=== PATIENT | female | born 1965 ===

== ENCOUNTER 2016-10-30 09:49 | Observation (INO) | payer MEDICAID ==
[2016-10-30 09:52] VITALS: BMI 33.3
[2016-10-30] MEDS ORDERED: Sodium Chloride 0.9% 1,000 ML IV STA (10:21)
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
[2016-10-30 10:45] LABS: ADD MANUAL DIFF? NO
[2016-10-30 10:51] LABS: BASO # 0.02 K/mm3 (0.0-2.0); BASO % 0.2 % (0.0-3.0); EOS % 0.1 % (1.5-5.0); GRAN # 6.34 (1.4-6.5); GRAN % 75.3 % (50.0-68.0); HEMATOCRIT 38.6 % (36.0-48.0); LYMPH # 1.7 (1.2-3.4); LYMPH % 20.1 % (22.0-35.0); MEAN CELL VOLUME 83.7 fL (80.0-105.0); MEAN CORPUSCULAR HGB CONC 33.4 g/dl (31.0-37.0); MEAN PLATELET VOLUME 11.1 fl (7.0-11.0); MONO # 0.4 (0.1-0.6); MONO % 4.3 % (1.0-6.0); PLATELET COUNT 148 10^3/uL (120.0-450.0); RED CELL DISTRIBUTION WIDTH 13.5 % (11.5-14.5); WHITE BLOOD COUNT 8.4 10^3/ul (4.5-11.0)
--- NOTE | 2016-10-30 10:52 | CT ---
PROCEDURE: CT HEAD WITHOUT CONTRAST. HISTORY: BEAULIEU COMPARISON: 08/28/2015 TECHNIQUE: Axial computed tomography images were obtained through the head/brain without intravenous contrast. Radiation dose: Total exam DLP = 677 mGy-cm. This CT exam was performed using one or more of the following dose reduction techniques: Automated exposure control, adjustment of the mA and/or kV according to patient size, and/or use of iterative reconstruction technique. FINDINGS: HEMORRHAGE: No intracranial hemorrhage. BRAIN: No mass effect or edema. No atrophy or chronic microvascular ischemic changes. VENTRICLES: Unremarkable. No hydrocephalus. CALVARIUM: Unremarkable. PARANASAL SINUSES: Unremarkable as visualized. No significant inflammatory changes. MASTOID AIR CELLS: Unremarkable as visualized. No inflammatory changes. OTHER FINDINGS: None. IMPRESSION: Normal CT of the Head.
[2016-10-30 11:00] LABS: ALB/GLOB RATIO 1.4 (1.1-1.8); ALKALINE PHOSPHATASE 114 U/L (38-133); ALT/SGPT 23 U/L (7-56); AST/SGOT 17 U/L (15-39); BILIRUBIN,TOTAL 0.7 mg/dL (0.2-1.3); BLOOD UREA NITROGEN 28 mg/dL (7-21); CALCIUM 9.8 mg/dL (8.4-10.5); CARBON DIOXIDE 28 mmol/L (21-33); CHLORIDE 98 mmol/L (98-107); GFR AFRICAN-AMERICAN > 60; POTASSIUM 4.5 mmol/L (3.6-5.0); SODIUM 136 mmol/L (132-148); TOTAL PROTEIN 7.3 g/dL (5.8-8.3)
[2016-10-30 11:03] LABS: INR 0.95 (0.93-1.08); PARTIAL THROMBOPLASTIN TIME 23.8 Seconds (23.7-30.8)
[2016-10-30 11:10] LABS: GLUCOSE,RANDOM 319 mg/dL (70-110)
[2016-10-30] MEDS ORDERED: Morphine 4 mg/ml ISec IVP STA (13:34)
[2016-10-30] MEDS ORDERED: Albuterol HFA 90 mcg/actuation (8 g) IH PRN (14:52)
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
[2016-10-30] MEDS ORDERED: Albuterol 0.083% Inhal Sol (2.5 mg/3 mL) UD IH PRN (15:10)
[2016-10-30] MEDS ORDERED: Insulin Detemir 100 units/ml Vial (Levemir) SC SCH (16:30)
[2016-10-30] MEDS ORDERED: Alum-Mag Hydrox-Simethicone Susp (30 mL) PO PRN (17:05)
--- NOTE | 2016-10-30 19:03 | US ---
PROCEDURE: Bilateral carotid artery duplex ultrasound HISTORY: Carotid stenosis syncope PHYSICIAN(S): Erwin Hogan MD. TECHNIQUE: Duplex sonography and color-flow Doppler were used to evaluate the carotid bifurcations and limited segments of the vertebral arteries bilaterally. FINDINGS: There is mild to moderate smooth heterogeneous plaque noted at the carotid bifurcations bilaterally. The peak systolic velocity in the proximal right internal carotid artery is 49 cm/sec. This corresponds to a 20 to 39% proximal right ICA stenosis. Normal systolic velocities are noted in the proximal right external carotid artery. There is bidirectional flow in the right vertebral artery. The peak systolic velocity in the proximal left internal carotid artery is 147 cm/sec. This corresponds to a 40-59 percent proximal left ICA stenosis. Normal systolic velocities are noted in the proximal left external carotid artery. There is antegrade flow in the left vertebral artery. IMPRESSION: 1. 40-59 percent proximal left ICA stenosis. 2. 20-39 percent proximal right ICA stenosis. 3. Grade flow in the left vertebral artery. Bidirectional flow in the right vertebral artery
--- NOTE | 2016-10-30 20:18 | CON ---
DATE: 10/30/2016 HISTORY OF PRESENT ILLNESS: This is a 51-year-old female with past medical history of diabe simba, hypertension, coronary artery disease, COPD, hypothyroidism who came to the hospital with a head ache on the back of the head on the right side and also complaining of some dizzy and headache. No n ausea, no vomiting. Headache is associated with some dizziness and lightheadedness, worse when she s tands up. Came to the hospital for further workup. CAT scan of the head was done, which was reporte d negative. PAST MEDICAL HISTORY: Hypertension, diabetes, coronary artery disease, anxiety, depression, COPD, hy pothyroidism. PAST SURGICAL HISTORY: Cardiac stents, tonsillectomy and ankle surgery. SOCIAL HISTORY: Quit smoking 20 years ago and drinks occasionally. ALLERGIES: SULFA. REVIEW OF SYSTEMS: A 10-point review of system was negative except headache. PHYSICAL EXAMINATION: HEENT: Normocephalic, atraumatic. VITAL SIGNS: Blood pressure 103/71. NECK: Supple. NEUROLOGIC: Alert, awake, oriented x 3. No aphasia. Cranial nerves II through XII were tested. Pu pils reactive. EOM intact. Visual [place] full. No facial asymmetry. Tongue midline. Motor examin ation: Moves all the extremities spontaneously. Deep tendon reflexes 1+. Both plantars are downgoi ng. Sensory appears intact. Cerebellar gait deferred. Impression of vertigo, rule out vertebrobasilar ischemia, headache. Will give Fioricet around the cl ock 1 q. 8 hours p.r.n. LABORATORY DATA: WBC 8.4, hemoglobin 12.9, hematocrit 38.5, platelets 148. Sodium 136, potassium 4. 5, chloride 98, CO2 of 28, glucose 319, BUN 28, creatinine 1.1. IMPRESSION: This is a 51-year-old with past medical history of diabetes, hypertension, coronary chloe ry disease, anxiety, hypothyroidism and came with right-sided headache and dizziness. CAT scan of th e head was done, which was reported negative. We will give Fioricet 1 p.o. q. 8 hours p.r.n. Workup is in progress. We will follow up. Van Ynes MD cc: [id number] TT: 10/30/2016 20:18:15 Confirmation # [id number] Dictation # [id number] jn
[2016-10-30] MEDS: Budesonide 0.5 mg/2 ml Inhal Susp UD IH SCH (20:24)
[2016-10-30] MEDS: Arformoterol 15 mcg/2 ml Inh Sol IH SCH (20:24)
[2016-10-30] MEDS ORDERED: Fluticasone-Salmeterol 250-50mcg Diskus IH SCH (22:00)
[2016-10-30] MEDS ORDERED: Pneumococcal 23-Valent Vaccine IM ONE (23:21)
[2016-10-31 07:22] LABS: ADD MANUAL DIFF? NO
[2016-10-31 07:27] LABS: BASO # 0.02 K/mm3 (0.0-2.0); BASO % 0.3 % (0.0-3.0); GRAN # 4.48 (1.4-6.5); GRAN % 65.1 % (50.0-68.0); HEMATOCRIT 36.6 % (36.0-48.0); LYMPH % 28.8 % (22.0-35.0); MEAN CELL VOLUME 83.8 fL (80.0-105.0); MEAN CORPUSCULAR HEMOGLOBIN 28.1 pg (25.0-35.0); MEAN CORPUSCULAR HGB CONC 33.6 g/dl (31.0-37.0); MEAN PLATELET VOLUME 10.5 fl (7.0-11.0); MONO # 0.4 (0.1-0.6); MONO % 5.8 % (1.0-6.0); PLATELET COUNT 134 10^3/uL (120.0-450.0); RED CELL DISTRIBUTION WIDTH 13.6 % (11.5-14.5); WHITE BLOOD COUNT 6.9 10^3/ul (4.5-11.0)
[2016-10-31] MEDS ORDERED: Apap-Butalbital-Caffeine 325-50-40mg Tab PO PRN (07:28)
[2016-10-31 07:44] VITALS: RESP 20
[2016-10-31 07:55] LABS: BLOOD UREA NITROGEN 27 mg/dL (7-21); CALCIUM 9.4 mg/dL (8.4-10.5); CARBON DIOXIDE 26 mmol/L (21-33); CHLORIDE 102 mmol/L (98-107); CHOLESTEROL 153 mg/dL (130-200); GFR AFRICAN-AMERICAN > 60; GLUCOSE,RANDOM 230 mg/dL (70-110); POTASSIUM 4.4 mmol/L (3.6-5.0); SODIUM 137 mmol/L (132-148)
[2016-10-31] MEDS: Levothyroxine 75 MCG TAB PO SCH (08:30)
[2016-10-31] MEDS: Arformoterol 15 mcg/2 ml Inh Sol IH SCH ×2 (08:44→20:23)
[2016-10-31] MEDS: Budesonide 0.5 mg/2 ml Inhal Susp UD IH SCH ×2 (08:45→20:23)
[2016-10-31] MEDS: Insulin Lispro (humaLOG) MIX 75/25(10 ml) SC SCH ×2 (08:52→16:38)
[2016-10-31] MEDS: Pantoprazole 40 mg EC Tab PO SCH (09:01)
--- NOTE | 2016-10-31 09:34 | CARD ---
APPROVED REPORT EKG Measurement Heart [id number] ME [id number] <Conclusion> Normal sinus rhythm RSR' or QR pattern in V1 suggests right ventricular conduction delay Leftward axis No change
[2016-10-31] MEDS: BUDESONIDE IH SCH (11:58)
--- NOTE | 2016-10-31 12:57 | PN ---
DATE: 10/31/2016 CHIEF COMPLAINT: Follow up for headache. SUBJECTIVE: The patient seen and examined at bedside, still has headache radiating up the right side of her occipital area. Fioricet has been given, but she does not ask for the Fioricet with the acut e onset of headache as told to. We will consider to add gabapentin 400 mg p.o. at bedtime daily to re duce the frequency and intensity of the headache. She is still lightheaded, no vertiginous symptoms. She had fluctuating hypoglycemic episodes when she came in and her A1c is 11.7 indicating poorly co ntrolled diabetes. No acute events overnight. PAST MEDICAL HISTORY: Diabetes, hypertension, coronary artery disease, anxiety, depression, COPD, hy pothyroidism. PAST SURGICAL HISTORY: Cardiac stent x 1-2 years ago, tonsillectomy, left ankle surgery. FAMILY HISTORY: Noncontributory. SOCIAL HISTORY: Previous tobacco use, quit 20 years ago. Occasional ETOH use. No illicit drug use abuse. ALLERGIES: ALLERGIC TO SULFA. REVIEW OF SYSTEMS: A 14-point review of systems is negative except as in the HPI. PHYSICAL EXAMINATION: VITAL SIGNS: Temperature 98.4, pulse rate 76, blood pressure 130/66, respiratory rate 20, oxygen 98% on room air. GENERAL: The patient is sitting up in bed in no acute distress. HEENT: Atraumatic, normocephalic. PERRLA. Extraocular muscles intact. NECK: Supple, no JVD, no adenopathy noted. LUNGS: Clear to auscultation. No adventitious sounds. HEART: S1, S2, normal rate and rhythm. No murmurs, rubs, or gallops. ABDOMEN: Soft, nontender, nondistended. Bowel sounds are present. EXTREMITIES: No clubbing, no cyanosis. Peripheral pulses 2+ felt bilaterally. NEUROLOGIC: The patient is alert, oriented to person, place, month and year. Speech is fluent, with out any errors. Cranial nerves II-XII are intact. Speech is fluent, without any errors. MOTOR: Normal tone, normal bulk of muscle. Moves all extremities equally. Toes are downgoing bilat erally. SENSORY: Decreased light touch custodial up the calves bilaterally, decreased vibration of the toes. DTRs 2+ throughout, 1 at the ankles. COORDINATION: [id number] intact. GAIT: Deferred for now. MUSCULOSKELETAL: Cervical muscle tightness. LABORATORIES: Sodium is 137, potassium 4.4, chloride 102, carbon dioxide 26, BUN of 27, creatinine 1 , random glucose 230. ASSESSMENT AND PLAN: This is a 51-year-old female with past medical history of diabetes, hypertensio n, coronary artery disease, anxiety, depression, chronic obstructive pulmonary disease, hypothyroidis m, was here for right-sided headache and dizziness. The dizziness is more of a headache syndrome with fluctuating hyperglycemic accelerations. Right side headache has a little bit of a neuralgic compon ent. At this time, we will add Fioricet 1-2 tabs p.o. q. 4 hours at the acute onset of headache miesha g with gabapentin 400 mg p.o. at bedtime to reduce the intensity and frequency of the headaches. Her carotid Doppler showed 40%-59% proximal ICA stenosis in the left and right ICA stenosis 20%-39%. Co ntinue medical management, aspirin 81 mg and a statin for dyslipidemia as well as Plavix for carotid disease as well. Continue with her anxiety and depression medications such as Paxil and Seroquel, as well as Synthroid for hypothyroidism. At this time, she is clinically stable. She can follow up as an outpatient. Thank you for this followup. Will sign off. Alejandro Quick MD cc: [phone] TT: 10/31/2016 12:56:48 Confirmation # [id number] Dictation # [id number] esperanza
--- NOTE | 2016-10-31 15:02 | CP.PCM.PN ---
<Dann Chase - Last Filed: 10/31/16 14:54> Subjective - Date & Time of Evaluation Date of Evaluation: 10/31/16 Time of Evaluation: 10:10 - Subjective Subjective: Medicine Progress note. Dr. Santos Pt seen and examined at bedside. No acute events overnight. Patient still c/o headache. States that she is dizzy and unsteady when she walks within room. Denies any F/C. No N/V. No Abd pain. No new complaints. Objective - Vital Signs/Intake and Output Vital Signs (last 24 hours): Temp Pulse Resp BP Pulse Ox 98.4 F 88 20 113/66 98 10/31/16 06:00 10/31/16 10:00 10/31/16 06:00 10/31/16 09:01 10/31/16 06:00 Intake and Output: 10/31/16 10/31/16 06:59 18:59 Intake Total 0 Balance 0 - Medications Medications: Current Medications Acetaminophen/Butalbital/Caffeine (Fioricet) 1 tab PO Q8H PRN PRN Reason: Headache Last Admin: 10/31/16 08:54 Dose: 1 tab Al Hydrox/Mg Hydrox/Simethicone (Maalox Plus 30 Ml) 30 ml PO BID PRN PRN Reason: Dyspepsia Albuterol Sulfate (Albuterol 0.083% Inhal Deena (2.5 Mg/3 Ml) Ud) 2.5 mg IH Q4 PRN PRN Reason: SOB Amlodipine Besylate (Norvasc) 10 mg PO DAILY [facility] Last Admin: 10/31/16 09:01 Dose: 10 mg Arformoterol Tartrate (Brovana) 15 mcg IH [id number] [facility] Last Admin: 10/31/16 08:44 Dose: 15 mcg Aspirin (Ecotrin) 81 mg PO DAILY [facility] Last Admin: 10/31/16 09:00 Dose: 81 mg Atorvastatin Calcium (Lipitor) 40 mg PO DAILY [facility] Last Admin: 10/31/16 09:01 Dose: 40 mg Budesonide (Pulmicort Respules) 0.5 mg IH [id number] [facility] Last Admin: 10/31/16 08:45 Dose: 0.5 mg Clopidogrel Bisulfate (Plavix) 75 mg PO DAILY [facility] Last Admin: 10/31/16 09:01 Dose: 75 mg Gabapentin (Neurontin) 400 mg PO [facility] PRN Reason: Protocol Insulin Detemir (Levemir) 12 unit SC BIDAC [facility] Last Admin: 10/31/16 08:52 Dose: 12 unit Insulin Lispro Protam/Lispro Human (Humalog Mix 75/25) 35 units SC BIDAC [facility] Last Admin: 10/31/16 08:52 Dose: 35 units Levothyroxine Sodium (Synthroid) 75 mcg PO ACB [facility] Last Admin: 10/31/16 08:30 Dose: 75 mcg Lisinopril (Zestril) 5 mg PO DAILY [facility] Last Admin: 10/31/16 09:01 Dose: 5 mg Meclizine HCl (Antivert) 12.5 mg PO BID [facility] Last Admin: 10/31/16 09:00 Dose: 12.5 mg Metoprolol Tartrate (Lopressor) 50 mg PO 0800,1800 [facility] Last Admin: 10/31/16 08:53 Dose: 50 mg Non-Formulary Medication (Budesonide [Pulmicort Flexhaler]) 1 puff IH DAILY [facility] Last Admin: 10/31/16 11:58 Dose: Not Given Ondansetron HCl (Zofran Inj) 4 mg IVP Q6 PRN PRN Reason: Nausea/Vomiting Pantoprazole Sodium (Protonix Ec Tab) 40 mg PO DAILY [facility] Last Admin: 10/31/16 09:01 Dose: 40 mg Paroxetine HCl (Paxil) 20 mg PO [facility] Last Admin: 10/30/16 21:32 Dose: 20 mg Quetiapine Fumarate (Seroquel) 50 mg PO [facility] PRN Reason: Protocol Last Admin: 10/30/16 21:32 Dose: 50 mg - Labs Labs: 10/31/16 07:20 10/31/16 07:20 PT 10.3 Seconds (9.9-11.8) 10/30/16 10:24 INR 0.95 (0.93-1.08) 10/30/16 10:24 APTT 23.8 Seconds (23.7-30.8) 10/30/16 10:24 - Constitutional Appears: Well, No Acute Distress - Head Exam Head Exam: ATRAUMATIC, NORMAL INSPECTION, NORMOCEPHALIC Additional comments: Tender to palpation right sided occiput - Eye Exam Eye Exam: EOMI, Normal appearance. absent: Scleral icterus - ENT Exam ENT Exam: Mucous Membranes Moist - Neck Exam Neck Exam: Full ROM - Cardiovascular Exam Cardiovascular Exam: RRR, +S1, +S2. absent: JVD - GI/Abdominal Exam GI & Abdominal Exam: Soft. absent: Distended, Guarding, Rigid, Tenderness - Extremities Exam Extremities Exam: Normal Inspection - Back Exam Back Exam: NORMAL INSPECTION - Neurological Exam Neurological Exam: Alert, Awake, Oriented x3 - Psychiatric Exam Psychiatric exam: Normal Affect, Normal Mood - Skin Skin Exam: Dry, Intact, Normal Color, Warm Assessment and Plan - Assessment and Plan (Free Text) Assessment: 51yo F with PMHx of DM, HTN, CAD, Anxiety/Depression, COPD, Hypothyroidism here for evaluation of right sided headache. 1. Headache/Dizziness CT head - no acute changes f/u Orthostatic vital signs TSH wnl ECHO 11/03/15: LVEF 53.9% Stress 07/31/16: Normal to remote tele Neurochecks Fall precautions Meclizine 12.5 PO BID Carotid Doppler - 20-39% R ICA stenosis, 40-59 L ICA stenosis Strict I&O Consult Neurology, Dr. Amaury Quick, appreciate recs 1-2 tabs fioricet q4h for acute headache Gabapentin 400mg HS to decrease frequency Follow up as out-patient Awaiting PT eval; Nursing staff reports unsteady gait 2. Abdominal pain consider secondary to NSAID gastritis Abd US 06/28/16: Fatty liver, no gallstones. Lipase wnl Protonix 40mg PO daily Maalox BID prn Zofran prn 3. Hx of DM HbA1c - 11.7 HbA1c was 11 in Jun 2016 Continue home insulin regimen Levemir 12U SC BIDAC Lispro 75/25 35U SC BIDAC Accuchecks 4. Hx of HTN/CAD continue home meds Norvasc, Aspirin, Plavix, Lisinopril, Metoprolol 5. Hx of Anxiety/Depression continue home meds Paxil, Seroquel 6. Hx of Hypothyroidism continue home meds Synthroid 75mcg TSH - wnl 7. Hx of COPD continue home regimen 8. PPx SCDs Protonix 40mg PO Daily Discussed case with Dr. Tom Chase PGY1 <Tom,Anwar A - Last Filed: 10/31/16 15:26> Objective - Vital Signs/Intake and Output Vital Signs (last 24 hours): Temp Pulse Resp BP Pulse Ox 98.4 F 88 20 113/66 98 10/31/16 06:00 10/31/16 10:00 10/31/16 06:00 10/31/16 09:01 10/31/16 06:00 Intake and Output: 10/31/16 10/31/16 06:59 18:59 Intake Total 0 Balance 0 - Medications Medications: Current Medications Acetaminophen/Butalbital/Caffeine (Fioricet) 1 tab PO Q4H PRN PRN Reason: Headache Al Hydrox/Mg Hydrox/Simethicone (Maalox Plus 30 Ml) 30 ml PO BID PRN PRN Reason: Dyspepsia Albuterol Sulfate (Albuterol 0.083% Inhal Deena (2.5 Mg/3 Ml) Ud) 2.5 mg IH Q4 PRN PRN Reason: SOB Amlodipine Besylate (Norvasc) 10 mg PO DAILY [facility] Last Admin: 10/31/16 09:01 Dose: 10 mg Arformoterol Tartrate (Brovana) 15 mcg IH [id number] [facility] Last Admin: 10/31/16 08:44 Dose: 15 mcg Aspirin (Ecotrin) 81 mg PO DAILY [facility] Last Admin: 10/31/16 09:00 Dose: 81 mg Atorvastatin Calcium (Lipitor) 40 mg PO DAILY [facility] Last Admin: 10/31/16 09:01 Dose: 40 mg Budesonide (Pulmicort Respules) 0.5 mg IH [id number] [facility] Last Admin: 10/31/16 08:45 Dose: 0.5 mg Clopidogrel Bisulfate (Plavix) 75 mg PO DAILY [facility] Last Admin: 10/31/16 09:01 Dose: 75 mg Gabapentin (Neurontin) 400 mg PO [facility] PRN Reason: Protocol Insulin Detemir (Levemir) 15 unit SC BIDAC [facility] Insulin Lispro Protam/Lispro Human (Humalog Mix 75/25) 35 units SC BIDAC [facility] Last Admin: 10/31/16 08:52 Dose: 35 units Levothyroxine Sodium (Synthroid) 75 mcg PO ACB [facility] Last Admin: 10/31/16 08:30 Dose: 75 mcg Lisinopril (Zestril) 5 mg PO DAILY [facility] Last Admin: 10/31/16 09:01 Dose: 5 mg Meclizine HCl (Antivert) 12.5 mg PO BID [facility] Last Admin: 10/31/16 09:00 Dose: 12.5 mg Metoprolol Tartrate (Lopressor) 50 mg PO 0800,1800 [facility] Last Admin: 10/31/16 08:53 Dose: 50 mg Non-Formulary Medication (Budesonide [Pulmicort Flexhaler]) 1 puff IH DAILY [facility] Last Admin: 10/31/16 11:58 Dose: Not Given Ondansetron HCl (Zofran Inj) 4 mg IVP Q6 PRN PRN Reason: Nausea/Vomiting Pantoprazole Sodium (Protonix Ec Tab) 40 mg PO DAILY [facility] Last Admin: 10/31/16 09:01 Dose: 40 mg Paroxetine HCl (Paxil) 20 mg PO HS [facility] Last Admin: 10/30/16 21:32 Dose: 20 mg Quetiapine Fumarate (Seroquel) 50 mg PO HS [facility] PRN Reason: Protocol Last Admin: 10/30/16 21:32 Dose: 50 mg - Labs Labs: 10/31/16 07:20 10/31/16 07:20 PT 10.3 Seconds (9.9-11.8) 10/30/16 10:24 INR 0.95 (0.93-1.08) 10/30/16 10:24 APTT 23.8 Seconds (23.7-30.8) 10/30/16 10:24 Attending/Attestation - Attestation I have personally seen and examined this patient.: Yes I have fully participated in the care of the patient.: Yes I have reviewed all pertinent clinical information, including history, physical exam and plan: Yes Notes (Text): 10/31/16 15:17 51 year old female with past medical history of CAD, hypertension, diabetes, depression, anxiety and hypothyroidism who presented with complaint of headache and dizziness with presyncopal episode at home. CT head was negative for acute findings. Neurology is following the patient. She was started on fioricet and still complains of occipital headache. Case wasd discussed with Dr. Quick and she will be started on gabapentin for tonight. Today she will complains of dizziness and unsteady gait. Continue with meclizine. PT evaluation is pending. Carotid doppler study was reviewed as above. Continue with medical management with aspirin, plavix and statin. Her epigastric pain has improved. Continue with protonix and maalox prn. Counselled on limiting NSAIDs use and recommended elective GI evaluation for possible EGD if symptoms are persistent. Continue with diet as tolerated. Continue with home medications for CAD, diabetes, and hypothyroidism. A1c is 11.7 and her levemir will be increased. Mao Santos MD Hospitalist.
[2016-10-31] MEDS: Apap-Butalbital-Caffeine 325-50-40mg Tab PO PRN ×2 (15:17→21:53)
[2016-10-31] MEDS ORDERED: Apap-Butalbital-Caffeine 325-50-40mg Tab PO ONE (16:25)
[2016-10-31] MEDS: Insulin Detemir 100 units/ml Vial (Levemir) SC SCH (16:36)
[2016-11-01] MEDS: Insulin Lispro (humaLOG) MIX 75/25(10 ml) SC SCH (08:06)
[2016-11-01] MEDS: Budesonide 0.5 mg/2 ml Inhal Susp UD IH SCH (08:06)
[2016-11-01] MEDS: Arformoterol 15 mcg/2 ml Inh Sol IH SCH (08:06)
[2016-11-01] MEDS: Insulin Detemir 100 units/ml Vial (Levemir) SC SCH (08:07)
[2016-11-01] MEDS: Levothyroxine 75 MCG TAB PO SCH (08:09)
[2016-11-01 08:10] VITALS: BP 101/57
[2016-11-01] MEDS: Apap-Butalbital-Caffeine 325-50-40mg Tab PO PRN (08:13)
[2016-11-01 08:43] VITALS: TEMP 99.3; O2SAT 96
[2016-11-01] MEDS: BUDESONIDE IH SCH (09:17)
[2016-11-01] MEDS: Pantoprazole 40 mg EC Tab PO SCH (09:26)
--- NOTE | 2016-11-01 11:12 | CP.PCM.DIS ---
<Larissa Solo - Last Filed: 11/01/16 22:15> Provider - Provider Date of Admission: 10/30/16 13:46 Attending physician: Mao Santos MD Primary care physician: Christina Roy DO Consults: Dr. Amaury Quick Time Spent in preparation of Discharge (in minutes): 35 Hospital Course - Lab Results Lab Results: Most Recent Lab Values WBC 6.9 10^3/ul (4.5-11.0) 10/31/16 07:20 RBC 4.37 10^6/uL (3.5-6.1) 10/31/16 07:20 Hgb 12.3 gm/dL (12.0-16.0) 10/31/16 07:20 Hct 36.6 % (36.0-48.0) 10/31/16 07:20 MCV 83.8 fL (80.0-105.0) 10/31/16 07:20 MCH 28.1 pg (25.0-35.0) 10/31/16 07:20 MCHC 33.6 g/dl (31.0-37.0) 10/31/16 07:20 RDW 13.6 % (11.5-14.5) 10/31/16 07:20 Plt Count 134 10^3/uL (120.0-450.0) 10/31/16 07:20 MPV 10.5 fl (7.0-11.0) 10/31/16 07:20 Gran % 65.1 % (50.0-68.0) 10/31/16 07:20 Lymph % (Auto) 28.8 % (22.0-35.0) 10/31/16 07:20 Franklin % (Auto) 5.8 % (1.0-6.0) 10/31/16 07:20 Eos % (Auto) 0.0 % (1.5-5.0) L 10/31/16 07:20 Baso % (Auto) 0.3 % (0.0-3.0) 10/31/16 07:20 Gran # 4.48 (1.4-6.5) 10/31/16 07:20 Lymph # 2.0 (1.2-3.4) 10/31/16 07:20 Franklin # 0.4 (0.1-0.6) 10/31/16 07:20 Eos # 0.0 (0.0-0.7) 10/31/16 07:20 Baso # 0.02 K/mm3 (0.0-2.0) 10/31/16 07:20 PT 10.3 Seconds (9.9-11.8) 10/30/16 10:24 INR 0.95 (0.93-1.08) 10/30/16 10:24 APTT 23.8 Seconds (23.7-30.8) 10/30/16 10:24 Sodium 137 mmol/L (132-148) 10/31/16 07:20 Potassium 4.4 mmol/L (3.6-5.0) 10/31/16 07:20 Chloride 102 mmol/L (98-107) 10/31/16 07:20 Carbon Dioxide 26 mmol/L (21-33) 10/31/16 07:20 Anion Gap 13 (10-20) 10/31/16 07:20 BUN 27 mg/dL (7-21) H 10/31/16 07:20 Creatinine 1.0 mg/dL (0.5-1.4) 10/31/16 07:20 Est GFR ( Amer) > 60 10/31/16 07:20 Est GFR (Non-Af Amer) 58 10/31/16 07:20 POC Glucose (mg/dL) 153 mg/dL (65-110) H 11/01/16 07:51 Random Glucose 230 mg/dL (70-110) H 10/31/16 07:20 Hemoglobin A1c 11.7 % (4.2-6.5) H 10/30/16 10:24 Calcium 9.4 mg/dL (8.4-10.5) 10/31/16 07:20 Total Bilirubin 0.7 mg/dL (0.2-1.3) 10/30/16 10:24 AST 17 U/L (15-39) 10/30/16 10:24 ALT 23 U/L (7-56) 10/30/16 10:24 Alkaline Phosphatase 114 U/L (38-133) 10/30/16 10:24 Total Protein 7.3 g/dL (5.8-8.3) 10/30/16 10:24 Albumin 4.2 g/dL (3.0-4.8) 10/30/16 10:24 Globulin 3.1 gm/dL 10/30/16 10:24 Albumin/Globulin Ratio 1.4 (1.1-1.8) 10/30/16 10:24 Triglycerides 203 mg/dL (35-160) H 10/31/16 07:20 Cholesterol 153 mg/dL (130-200) 10/31/16 07:20 LDL Cholesterol Direct 88 mg/dL (0-129) 10/31/16 07:20 HDL Cholesterol 39 mg/dL (29-60) 10/31/16 07:20 Lipase 70 U/L (23-300) 10/30/16 10:24 TSH 3rd Generation 2.18 mIU/mL (0.46-4.68) 10/31/16 07:20 - Hospital Course Hospital Course: 51 yo F w/ PMHx of CAD, hypertension, diabetes, depression, anxiety and hypothyroidism, initially presented with headache and dizziness with presyncopal episode at home. CT head was negative for acute findings. Under observation for dizziness in remote telemetry. Neurology was consulted and pt started on fioricet for occipital headache and gabapentin started for continued BEAULIEU. Pt also has dizziness and unsteady gait treated with meclizine. Carotid doppler showed 40% to 59% proximal L ICA stenosis, R ICA stenosis of 20- 39%. Started home medications of ASA 81, statin and Plavix for carotid disease. Pt Counselled on limiting NSAIDs use and recommended elective GI evaluation for possible EGD if symptoms are persistent. Continued with home medications for diabetes, and hypothyroidism. Home levemir increased for A1c is 11.7 and serum glucose control. Pt d/c in stable condition with following instructions: You are discharged. Please follow-up with the primary care of choice within one week. Please resume all home medications except the levemir insulin of 12 u twice daily, and replace that with new medication of levemir 15u sc twice daily before meals. Please take the following new medications: Gabapentin/Neurotin 400mg by mouth at night, Meclizine/anitvert 12.5 mg by mouth twice daily as needed, Fioricet one tab by mouth every four hours as needed for headache. If you experience any worsening dizziness pain, nausea, vomiting or loss of consciousness contact your primary care physician and go to the nearest Emergency room. Discharge Exam - Head Exam Head Exam: ATRAUMATIC, NORMAL INSPECTION, NORMOCEPHALIC - Eye Exam Eye Exam: EOMI, Normal appearance - ENT Exam ENT Exam: Mucous Membranes Moist, Normal Exam - Respiratory Exam Respiratory Exam: NORMAL BREATHING PATTERN, UNREMARKABLE - Cardiovascular Exam Cardiovascular Exam: +S1, +S2. absent: Bradycardia - GI/Abdominal Exam GI & Abdominal Exam: Soft. absent: Tenderness - Exam External exam: absent: Ecchymosis, Erythema - Extremities Exam Extremities exam: normal capillary refill, pedal pulses present - Neurological Exam Neurological exam: Alert, Oriented x3 - Skin Skin Exam: Normal Color, Warm Discharge Plan - Discharge Medications Prescriptions: Acetaminophen/Butalbital/Caf [Fioricet] 1 tab PO Q4H PRN #60 tab PRN Reason: Headache Gabapentin [Neurontin] 400 mg PO HS #14 cap Insulin Detemir [Levemir] 15 unit SC BIDAC #4 vial Meclizine [Antivert] 12.5 mg PO BID #28 tab - Follow Up Plan Condition: STABLE Disposition: HOME/ ROUTINE Instructions: Migraine Headache (DC), Vertigo (DC), Acute Headache (DC), Dizziness (GEN) Additional Instructions: You are discharged. Please follow-up with the primary care of choice within one week. Please resume all home medications except the levemir insulin of 12 u twice daily, and replace that with new medication of levemir 15u sc twice daily before meals. Please take the following new medications: Gabapentin/Neurotin 400mg by mouth at night, Meclizine/anitvert 12.5 mg by mouth twice daily as needed, Fioricet one tab by mouth every four hours as needed for headache. If you experience any worsening dizziness pain, nausea, vomiting or loss of consciousness contact your primary care physician and go to the nearest Emergency room. Referrals: Christina Roy DO [Primary Care Provider] - <Mao Santos - Last Filed: 11/02/16 14:03> Provider - Provider Date of Admission: 10/30/16 13:46 Attending physician: Mao Santos MD Primary care physician: Christina Roy DO Hospital Course - Lab Results Lab Results: Most Recent Lab Values WBC 6.9 10^3/ul (4.5-11.0) 05/13/17 07:20 RBC 4.37 10^6/uL (3.5-6.1) 10/31/16 07:20 Hgb 12.3 gm/dL (12.0-16.0) 10/31/16 07:20 Hct 36.6 % (36.0-48.0) 10/31/16 07:20 MCV 83.8 fL (80.0-105.0) 10/31/16 07:20 MCH 28.1 pg (25.0-35.0) 10/31/16 07:20 MCHC 33.6 g/dl (31.0-37.0) 10/31/16 07:20 RDW 13.6 % (11.5-14.5) 10/31/16 07:20 Plt Count 134 10^3/uL (120.0-450.0) 10/31/16 07:20 MPV 10.5 fl (7.0-11.0) 10/31/16 07:20 Gran % 65.1 % (50.0-68.0) 10/31/16 07:20 Lymph % (Auto) 28.8 % (22.0-35.0) 10/31/16 07:20 Franklin % (Auto) 5.8 % (1.0-6.0) 10/31/16 07:20 Eos % (Auto) 0.0 % (1.5-5.0) L 10/31/16 07:20 Baso % (Auto) 0.3 % (0.0-3.0) 10/31/16 07:20 Gran # 4.48 (1.4-6.5) 10/31/16 07:20 Lymph # 2.0 (1.2-3.4) 10/31/16 07:20 Franklin # 0.4 (0.1-0.6) 10/31/16 07:20 Eos # 0.0 (0.0-0.7) 10/31/16 07:20 Baso # 0.02 K/mm3 (0.0-2.0) 10/31/16 07:20 PT 10.3 Seconds (9.9-11.8) 10/30/16 10:24 INR 0.95 (0.93-1.08) 10/30/16 10:24 APTT 23.8 Seconds (23.7-30.8) 10/30/16 10:24 Sodium 137 mmol/L (132-148) 10/31/16 07:20 Potassium 4.4 mmol/L (3.6-5.0) 10/31/16 07:20 Chloride 102 mmol/L (98-107) 10/31/16 07:20 Carbon Dioxide 26 mmol/L (21-33) 10/31/16 07:20 Anion Gap 13 (10-20) 10/31/16 07:20 BUN 27 mg/dL (7-21) H 10/31/16 07:20 Creatinine 1.0 mg/dL (0.5-1.4) 10/31/16 07:20 Est GFR ( Amer) > 60 10/31/16 07:20 Est GFR (Non-Af Amer) 58 10/31/16 07:20 POC Glucose (mg/dL) 153 mg/dL (65-110) H 11/01/16 07:51 Random Glucose 230 mg/dL (70-110) H 10/31/16 07:20 Hemoglobin A1c 11.7 % (4.2-6.5) H 10/30/16 10:24 Calcium 9.4 mg/dL (8.4-10.5) 10/31/16 07:20 Total Bilirubin 0.7 mg/dL (0.2-1.3) 10/30/16 10:24 AST 17 U/L (15-39) 10/30/16 10:24 ALT 23 U/L (7-56) 10/30/16 10:24 Alkaline Phosphatase 114 U/L (38-133) 10/30/16 10:24 Total Protein 7.3 g/dL (5.8-8.3) 10/30/16 10:24 Albumin 4.2 g/dL (3.0-4.8) 10/30/16 10:24 Globulin 3.1 gm/dL 10/30/16 10:24 Albumin/Globulin Ratio 1.4 (1.1-1.8) 10/30/16 10:24 Triglycerides 203 mg/dL (35-160) H 10/31/16 07:20 Cholesterol 153 mg/dL (130-200) 10/31/16 07:20 LDL Cholesterol Direct 88 mg/dL (0-129) 10/31/16 07:20 HDL Cholesterol 39 mg/dL (29-60) 10/31/16 07:20 Lipase 70 U/L (23-300) 10/30/16 10:24 TSH 3rd Generation 2.18 mIU/mL (0.46-4.68) 10/31/16 07:20 Attending/Attestation - Attestation I have personally seen and examined this patient.: Yes I have fully participated in the care of the patient.: Yes I have reviewed all pertinent clinical information, including history, physical exam and plan: Yes Notes (Text): 11/01/16 51 year old female with past medical history of CAD, hypertension, diabetes, depression, anxiety and hypothyroidism who presented with complaint of headache and dizziness with presyncopal episode at home. CT head was negative for acute findings. Carotid dopplers were reviewed as above. She is on aspirin, plavix and statin. She was started on meclizine, fioricet and neurontin with improvement of symptoms. Her epigastric pain also improved. Counselled on limiting NSAIDs use and recommended elective GI evaluation for possible EGD if symptoms are persistent. Mao Santos MD Hospitalist.
[2016-11-01 11:54] VITALS: PULSE 72
== END 2016-11-01 12:05 | disposition home or self-care (01) ==
LOC: ED 09:49 → ERH 13:46 → 3RSO 18:47
PROVIDERS: ADMIT Internal Medicine; ATTEND Internal Medicine
DX: R42 Dizziness and giddiness (principal); R51 Headache; I65.23 Occlusion and stenosis of bilateral carotid arteries; F41.9 Anxiety disorder, unspecified; I25.10 Atherosclerotic heart disease of native coronary artery without angina pectoris; I10 Essential (primary) hypertension; J44.9 Chronic obstructive pulmonary disease, unspecified; E03.9 Hypothyroidism, unspecified; R10.13 Epigastric pain; E78.5 Hyperlipidemia, unspecified; F32.9 Major depressive disorder, single episode, unspecified; R26.81 Unsteadiness on feet; E11.65 Type 2 diabetes mellitus with hyperglycemia; Z79.82 Long term (current) use of aspirin; Z79.02 Long term (current) use of antithrombotics/antiplatelets; Z79.4 Long term (current) use of insulin; Z95.5 Presence of coronary angioplasty implant and graft; Z87.891 Personal history of nicotine dependence; Z88.2 Allergy status to sulfonamides
CPT/HCPCS: 36415; 70450; 80048; 80053; 80061; 82948; 83036; 83690; 84443; 85025; 85610; 85730; 93005; 93880; 94640; 96360; 96374; 97116; 97161; 99285; G0378; G8978; G8979; J1885; J2270; J7040

== ENCOUNTER 2016-11-25 11:37 | Observation (INO) | payer MEDICAID ==
[2016-11-25] MEDS ORDERED: Sodium Chloride 0.9% 1,000 ML IV STA (11:58)
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
[2016-11-25 12:17] LABS: ADD MANUAL DIFF? NO
[2016-11-25 12:22] LABS: VENOUS BLOOD GAS BASE EXCESS -3.3 mmol/L (0.0-2.0); VENOUS BLOOD PH 7.27 (7.32-7.43)
[2016-11-25 12:28] LABS: BASO # 0.02 K/mm3 (0.0-2.0); BASO % 0.3 % (0.0-3.0); EOS % 0.1 % (1.5-5.0); GRAN # 5.52 (1.4-6.5); HEMATOCRIT 39.4 % (36.0-48.0); LYMPH # 1.4 (1.2-3.4); LYMPH % 19.6 % (22.0-35.0); MEAN CELL VOLUME 84.9 fL (80.0-105.0); MEAN CORPUSCULAR HEMOGLOBIN 28.7 pg (25.0-35.0); MEAN CORPUSCULAR HGB CONC 33.8 g/dl (31.0-37.0); MEAN PLATELET VOLUME 11.2 fl (7.0-11.0); MONO # 0.3 (0.1-0.6); PLATELET COUNT 117 10^3/uL (120.0-450.0); RED CELL DISTRIBUTION WIDTH 13.8 % (11.5-14.5); WHITE BLOOD COUNT 7.3 10^3/ul (4.5-11.0)
[2016-11-25 12:31] LABS: ALB/GLOB RATIO 1.2 (1.1-1.8); ALKALINE PHOSPHATASE 132 U/L (38-133); ALT/SGPT 36 U/L (7-56); AST/SGOT 16 U/L (15-39); BILIRUBIN,TOTAL 0.4 mg/dL (0.2-1.3); BLOOD UREA NITROGEN 25 mg/dL (7-21); CALCIUM 9.2 mg/dL (8.4-10.5); CARBON DIOXIDE 22 mmol/L (21-33); CHLORIDE 99 mmol/L (98-107); GFR AFRICAN-AMERICAN > 60; LIPASE 110 U/L (23-300); MAGNESIUM 1.7 mg/dL (1.7-2.2); POTASSIUM 4.8 mmol/L (3.6-5.0); SODIUM 130 mmol/L (132-148); TOTAL PROTEIN 7.1 g/dL (5.8-8.3)
[2016-11-25 12:37] LABS: URINE APPEARANCE CLEAR (CLEAR); URINE BILIRUBIN NEGATIVE (NEGATIVE); URINE BLOOD NEGATIVE (NEGATIVE); URINE COLOR YELLOW (YELLOW); URINE GLUCOSE (UA) >=1000 mg/dL (NEGATIVE); URINE KETONE NEGATIVE (NEGATIVE); URINE LEUKOCYTE ESTERASE NEGATIVE Leu/uL (NEGATIVE); URINE PROTEIN NEGATIVE mg/dL (<30 mg/dL); URINE UROBILINOGEN 0.2 E.U./dL (<1 E.U./dL)
[2016-11-25 12:42] LABS: INR 0.93 (0.93-1.08); PARTIAL THROMBOPLASTIN TIME 23.5 Seconds (23.7-30.8)
[2016-11-25 12:43] LABS: GLUCOSE,RANDOM 612 mg/dL (70-110)
[2016-11-25 12:44] LABS: TROPONIN I < 0.01 ng/mL
--- NOTE | 2016-11-25 14:39 | RAD ---
HISTORY: palpitations, dizzy COMPARISON: 06/28/2016 TECHNIQUE: Chest PA and lateral FINDINGS: LUNGS: No active pulmonary disease. PLEURA: No significant pleural effusion identified. No pneumothorax apparent. CARDIOVASCULAR: Normal. OSSEOUS STRUCTURES: No significant abnormalities. VISUALIZED UPPER ABDOMEN: Normal. OTHER FINDINGS: None. IMPRESSION: No active disease.
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
[2016-11-25] MEDS ORDERED: Albuterol 0.5% Inhal Sol (2.5 mg/0.5 ml) UD IH PRN (15:20)
[2016-11-25 16:09] LABS: VENOUS BLOOD GAS BASE EXCESS 0.9 mmol/L (0.0-2.0); VENOUS BLOOD PH 7.37 (7.32-7.43)
[2016-11-25] MEDS ORDERED: Insulin Detemir 100 units/ml Vial (Levemir) SC SCH ×2 (16:30→22:00)
[2016-11-25] MEDS ORDERED: Insulin Lispro (humaLOG) MIX 75/25(10 ml) SC SCH (16:30)
[2016-11-25] MEDS ORDERED: Insulin Reg-LOW-Coverage SC SCH (16:30)
[2016-11-25] MEDS: Insulin Lispro (humaLOG) LOW Coverage SC SCH ×2 (17:44→21:57)
[2016-11-25] MEDS: Insulin Lispro 1 UNITS/0.01 ML SC SCH (17:49)
[2016-11-25] MEDS: Sodium Chloride 0.45% 1,000 ML IV SCH (17:50)
--- NOTE | 2016-11-25 19:50 | CON ---
DATE: 11/25/2016 ROOM: 363 HISTORY OF PRESENT ILLNESS: This is a 51-year-old female with known history of type 2 insulin-requir ing diabetes, presenting here with marked hyperglycemic accelerations and glucose values were apparen tly over 500 mg/dL taken at her primary physician's office today and was also referred to ER for subs equent evaluation and admission. She is being referred now for diabetic evaluation and management. PAST MEDICAL HISTORY: As mentioned above, history of type 2 insulin-requiring diabetes, currently on a combination of Humalog 75/25 given at a dose of 35 units b.i.d. with Levemir given as 15 units b.i .d. as noted. History of hypertensive cardiovascular disease and dyslipidemia, history of diabetic r etinopathy and polyneuropathy also significant history of coronary artery disease with previous coron edgar stent placement and also underlying peripheral arterial vasculopathy. History of chronic obstruc tive lung disease with previous history of nicotine dependence, history of generalized anxiety and de pression, currently on psychotropic medications. Also, history of hypothyroidism, currently taking l evothyroxine at 75 mcg daily. FAMILY HISTORY: Positive for diabetes and hypertension. SOCIAL HISTORY: The patient has a supportive family. Admits to previous history of nicotine depende nce, but quit smoking a few years ago. No other illicit drug use. REVIEW OF SYSTEMS: Admits to generalized body weakness with easy fatigability and tiredness and subo ptimal energy level. Also admits to progressive bouts of dizziness and lightheadedness, worse on the day of admission as noted. Also, admits to precordial chest pain especially on exertion, but no mary rtness of breath noted otherwise. Her oral intake has been variable with nausea, dyspepsia, and vagu e upper abdominal pain. Also, admits to marked polyuria, nocturia, and polydipsia, and about a 5-zack nd or so weight loss. Also, admits to lower extremity painful paresthesias, especially nocturnally. PHYSICAL EXAMINATION: GENERAL: This is an overweight female in no apparent distress. VITAL SIGNS: Blood pressure of 154/90, pulse of 100 beats per minute and regular, temperature 99, re spirations 20. HEIGHT: 4 feet 9 inches, weight is 164 pounds. HEENT: Head normocephalic. Eyes anicteric with pink conjunctivae. Fundoscopy not possible at this time. Ears, nose and throat otherwise normal. NECK: Supple. Thyroid gland is normal size. No carotid bruits. No cervical adenopathy. CARDIOPULMONARY: Some adynamic precordium. S1, S2 is rapid and regular. LUNGS: Show scattered rhonchi. ABDOMEN: Flat, soft with positive bowel sounds. EXTREMITIES: No peripheral edema. Pulses are +2 bilaterally. LABORATORY DATA: The chemistry showed a BUN of 25, sodium 130, potassium 4.8, chloride 99, CO2 of 22 , glucose 612 mg/dL and creatinine 1.1. ASSESSMENT: This is a 51-year-old female with uncontrolled type 2 insulin-requiring diabetes, presen ting here with marked hyperglycemic accelerations and concomitant dizziness and lightheadedness with generalized body weakness and constitutional symptoms with clinical and biochemical evidence of dehyd ration and prerenal azotemia and spurious hyponatremia. She also has diabetic microvascular complica tions of retinopathy and polyneuropathy with diabetic macrovascular complications of coronary artery disease and peripheral arterial disease and vasculopathy. PLAN OF MANAGEMENT: As discussed with the patient and staff, we will initiate vigorous IV hydration as already ordered at this time and will obtain serial chemistries and supplement accordingly as need ed. We will also discontinue her current premixed insulin regimen and switch her over to a more phys iologic drug combination of a basal and bolus insulin drug regimen as ordered today. We will start h er with Humalog given as 14 units t.i.d. before meals to start at dinnertime today as ordered. We wi ll also modify the coverage scale using a low dose correction scale using Humalog insulin as ordered. We will add basal insulin given as Levemir 24 units subQ at bedtime daily as given. We will obtain serial chemistries and supplement accordingly as needed. We will also initiate diabetic education a nd dietary instructions at the time of this admission. We will also obtain baseline thyroid studies and adjust his levothyroxine dose accordingly. We will also consult our diabetic nurse educator to r avinash adherence to the insulin regimen and also review her insulin self-administration techniques. We will also obtain a dietary evaluation for healthiest food choices as ordered. We will follow. Leslie Hermosillo MD cc: [id number] TT: 11/25/2016 19:49:44 Confirmation # [id number] Dictation # [id number] jn
[2016-11-25] MEDS: Arformoterol 15 mcg/2 ml Inh Sol IH SCH (20:47)
[2016-11-25] MEDS: Budesonide 0.5 mg/2 ml Inhal Susp UD IH SCH (20:47)
[2016-11-25] MEDS: Apap-Butalbital-Caffeine 325-50-40mg Tab PO PRN (21:57)
[2016-11-25] MEDS ORDERED: Fluticasone-Salmeterol 250-50mcg Diskus IH SCH (22:00)
[2016-11-25 22:06] VITALS: BMI 35.4
[2016-11-25] MEDS ORDERED: Pneumococcal 23-Valent Vaccine IM ONE (22:06)
[2016-11-26] MEDS: Sodium Chloride 0.45% 1,000 ML IV SCH ×2 (02:00→14:35)
[2016-11-26 07:07] LABS: ADD MANUAL DIFF? NO
[2016-11-26 07:12] LABS: BASO # 0.01 K/mm3 (0.0-2.0); BASO % 0.2 % (0.0-3.0); EOS % 0.2 % (1.5-5.0); GRAN # 2.93 (1.4-6.5); GRAN % 54.6 % (50.0-68.0); HEMATOCRIT 35.3 % (36.0-48.0); LYMPH # 2.1 (1.2-3.4); LYMPH % 38.5 % (22.0-35.0); MEAN CELL VOLUME 83.1 fL (80.0-105.0); MEAN CORPUSCULAR HEMOGLOBIN 27.8 pg (25.0-35.0); MEAN CORPUSCULAR HGB CONC 33.4 g/dl (31.0-37.0); MEAN PLATELET VOLUME 11.1 fl (7.0-11.0); MONO # 0.4 (0.1-0.6); MONO % 6.5 % (1.0-6.0); PLATELET COUNT 116 10^3/uL (120.0-450.0); RED CELL DISTRIBUTION WIDTH 14.1 % (11.5-14.5); WHITE BLOOD COUNT 5.4 10^3/ul (4.5-11.0)
[2016-11-26 07:29] LABS: ALB/GLOB RATIO 1.2 (1.1-1.8); ALKALINE PHOSPHATASE 104 U/L (38-133); ALT/SGPT 30 U/L (7-56); AST/SGOT 16 U/L (15-39); BILIRUBIN,TOTAL 0.4 mg/dL (0.2-1.3); BLOOD UREA NITROGEN 16 mg/dL (7-21); CALCIUM 8.7 mg/dL (8.4-10.5); CARBON DIOXIDE 24 mmol/L (21-33); CHLORIDE 107 mmol/L (98-107); CHOLESTEROL 180 mg/dL (130-200); GFR AFRICAN-AMERICAN > 60; GLUCOSE,RANDOM 186 mg/dL (70-110); POTASSIUM 3.8 mmol/L (3.6-5.0); SODIUM 137 mmol/L (132-148)
[2016-11-26 07:40] LABS: FREE T4 1.29 ng/dL (0.78-2.19); T4 9.5 ug/dL (5.5-11.0)
[2016-11-26 07:54] LABS: THYROID STIMULATING HORMONE 1.42 mIU/mL (0.46-4.68)
[2016-11-26] MEDS: Insulin Lispro 1 UNITS/0.01 ML SC SCH ×3 (08:13→17:44)
[2016-11-26] MEDS: Insulin Lispro (humaLOG) LOW Coverage SC SCH ×4 (08:14→22:16)
[2016-11-26] MEDS: Budesonide 0.5 mg/2 ml Inhal Susp UD IH SCH ×2 (08:27→20:55)
[2016-11-26] MEDS: Arformoterol 15 mcg/2 ml Inh Sol IH SCH ×2 (08:27→20:55)
--- NOTE | 2016-11-26 09:09 | CP.PCM.PN ---
<Yves Jerez - Last Filed: 11/26/16 09:17> Subjective - Date & Time of Evaluation Date of Evaluation: 11/26/16 Time of Evaluation: 07:35 - Subjective Subjective: Pt was seen and examined at bedside. Pt still has mild complaints of dizziness where she feels herself spinning especially when shifting positions and standing up. Pt is tolerating diet and tolerating her insulin regimine. Pt is voiding regularly however has not moved her bowels yet. Pt denied fever, chills , sob, chest pains, abdominal pains, n/v/d/c or urinary symptoms. Objective - Vital Signs/Intake and Output Vital Signs (last 24 hours): Temp Pulse Resp BP Pulse Ox 98.1 F 79 20 118/78 99 11/26/16 07:59 11/26/16 07:59 11/26/16 07:59 11/26/16 07:59 11/26/16 07:59 Intake and Output: 11/26/16 11/26/16 06:59 18:59 Intake Total 480 Balance 480 - Medications Medications: Current Medications Acetaminophen/Butalbital/Caffeine (Fioricet) 1 tab PO Q4H PRN PRN Reason: Headache Last Admin: 11/25/16 21:57 Dose: 1 tab Albuterol Sulfate (Albuterol 0.5% Inhal Deena (2.5 Mg/0.5 Ml) Ud) 2.5 mg IH Q4 PRN PRN Reason: Shortness of Breath Amlodipine Besylate (Norvasc) 10 mg PO DAILY [facility] Arformoterol Tartrate (Brovana) 15 mcg IH [id number] [facility] Last Admin: 11/26/16 08:27 Dose: 15 mcg Aspirin (Ecotrin) 81 mg PO DAILY [facility] Atorvastatin Calcium (Lipitor) 40 mg PO DAILY [facility] Budesonide (Pulmicort Respules) 0.5 mg IH [id number] [facility] Last Admin: 11/26/16 08:27 Dose: 0.5 mg Clopidogrel Bisulfate (Plavix) 75 mg PO DAILY [facility] Famotidine (Pepcid) 20 mg PO DAILY [facility] Gabapentin (Neurontin) 400 mg PO HS [facility] PRN Reason: Protocol Last Admin: 11/25/16 21:53 Dose: 400 mg Heparin Sodium (Porcine) (Heparin) 5,000 units SC Q8 AYDIN PRN Reason: Protocol Last Admin: 11/26/16 05:53 Dose: 5,000 units Sodium Chloride (Sodium Chloride 0.45%) 1,000 mls @ 100 mls/hr IV .Q10H [facility] Last Admin: 11/26/16 02:00 Dose: 100 mls/hr Insulin Detemir (Levemir) 24 unit SC HS [facility] Last Admin: 11/25/16 21:54 Dose: 24 unit Insulin Human Lispro (Humalog) 14 units SC AC [facility] Last Admin: 11/26/16 08:13 Dose: 14 units Insulin Human Lispro (Humalog Low) 0 units SC ACHS [facility] PRN Reason: Protocol Last Admin: 11/26/16 08:14 Dose: Not Given Levothyroxine Sodium (Synthroid) 75 mcg PO ACB [facility] Lisinopril (Zestril) 5 mg PO DAILY [facility] Meclizine HCl (Antivert) 12.5 mg PO Q12 PRN PRN Reason: Dizziness Metoprolol Tartrate (Lopressor) 50 mg PO 0800,1800 [facility] Last Admin: 11/25/16 17:50 Dose: 50 mg Non-Formulary Medication (Budesonide [Pulmicort Flexhaler]) 1 puff IH DAILY [facility] Paroxetine HCl (Paxil) 20 mg PO [facility] Last Admin: 11/25/16 21:54 Dose: 20 mg Quetiapine Fumarate (Seroquel) 50 mg PO [facility] PRN Reason: Protocol Last Admin: 11/25/16 21:52 Dose: 50 mg - Labs Labs: 11/26/16 07:00 11/26/16 07:00 PT 10.0 Seconds (9.9-11.8) 11/25/16 12:00 INR 0.93 (0.93-1.08) 11/25/16 12:00 APTT 23.5 Seconds (23.7-30.8) L 11/25/16 12:00 - Constitutional Appears: Well, No Acute Distress - Head Exam Head Exam: ATRAUMATIC, NORMAL INSPECTION, NORMOCEPHALIC - Eye Exam Eye Exam: EOMI, Normal appearance, PERRL Pupil Exam: NORMAL ACCOMODATION, PERRL - ENT Exam ENT Exam: Mucous Membranes Moist, Normal Exam - Respiratory Exam Respiratory Exam: Clear to Ausculation Bilateral, NORMAL BREATHING PATTERN - Cardiovascular Exam Cardiovascular Exam: REGULAR RHYTHM, +S1, +S2. absent: Murmur - GI/Abdominal Exam GI & Abdominal Exam: Soft, Normal Bowel Sounds. absent: Tenderness - Extremities Exam Extremities Exam: Full ROM, Normal Capillary Refill, Normal Inspection. absent : Joint Swelling, Pedal Edema - Neurological Exam Neurological Exam: Alert, Awake, CN II-XII Intact, Normal Gait, Oriented x3 - Psychiatric Exam Psychiatric exam: Normal Affect, Normal Mood - Skin Skin Exam: Dry, Intact, Normal Color, Warm Assessment and Plan - Assessment and Plan (Free Text) Assessment: 51yo F with PMHx of DM, HTN, CAD, Anxiety/Depression, COPD, Hypothyroidism admitted with hyperglycemia, headache and dizziness. 1. Hyperglycemia - Endocrinology, Dr. Hermosillo consulted, recommended change in insulin regimine 14 units TID, ISS low, and 24 u levemir hs - Fu A1c - accuchecks - / NS @100ml/hr 2. Headache /dizziness - MRI w&w/o brain - f/u Orthostatic vital signs - f/u TSH - echo 11/03/15: LVEF 53.9% - Meclizine 12.5 PO BID - Consult Neurology, Dr. Amaury Quick, appreciate recs 3. HTN - continue home meds - continue to monitor 4. CAD s/p stent placement - Aspirin, Plavix 5. Anxiety/depression - continue home meds - Paxil, Seroquel 6. Hypothyroidism - Synthroid 75mcg - tsh wnl 7. COPD - continue home nebs 8. Hypertrigliceridemia - T, fenofibrate DVT & GI ppx: protonix and heparin seen reviewed and discussed with attending <Montez Aguiar - Last Filed: 11/27/16 15:12> Objective - Vital Signs/Intake and Output Vital Signs (last 24 hours): Temp Pulse Resp BP Pulse Ox 98.1 F 78 20 110/66 98 11/27/16 08:13 11/27/16 08:13 11/27/16 08:13 11/27/16 10:13 11/27/16 08:13 Intake and Output: 11/27/16 11/27/16 06:59 18:59 Intake Total 360 0 Balance 360 0 - Labs Labs: 11/27/16 06:30 11/27/16 06:30 PT 10.0 Seconds (9.9-11.8) 11/25/16 12:00 INR 0.93 (0.93-1.08) 11/25/16 12:00 APTT 23.5 Seconds (23.7-30.8) L 11/25/16 12:00 Attending/Attestation - Attestation I have personally seen and examined this patient.: Yes I have fully participated in the care of the patient.: Yes I have reviewed all pertinent clinical information, including history, physical exam and plan: Yes Notes (Text): I have seen and examined patient at bedside. Agree with the above resident with the following additions/ exceptions: This is 51 year old female with history of IDDM, HTN. CAD, anxiety, depression, COPD who was admitted for evaluation of uncontrolled IDDM, persistent headache and dizziness. Endo consult appreciated. Her insulin is being adjusted. Will f/u HBA1C. MRI brain and neuro consult pending. Continue meclizine. Upon discharge patient will follow up with Dr Roy. Dr Montez Aguiar
[2016-11-26] MEDS: Apap-Butalbital-Caffeine 325-50-40mg Tab PO PRN (09:42)
[2016-11-26] MEDS: Levothyroxine 75 MCG TAB PO SCH (09:48)
[2016-11-26] MEDS ORDERED: BUDESONIDE IH SCH (10:00)
--- NOTE | 2016-11-26 10:19 | CARD ---
APPROVED REPORT EKG Measurement Heart [id number] <Conclusion> Sinus tachycardia RVCD Laftward axis Prolonged QTc
[2016-11-26] MEDS ORDERED: Gadodiamide 287 MG/ML VIAL (15ML) IV ONE (13:20)
--- NOTE | 2016-11-26 14:32 | MRI ---
PROCEDURE: MRI BRAIN WITH AND WITHOUT CONTRAST HISTORY: Headache and dizziness COMPARISON: Noncontrast head CT from 10/30/2016 TECHNIQUE: Multiplanar, multisequence MR images of the brain were obtained with and without intravenous contrast enhancement. 15 mL gadolinium was injected intravenously. FINDINGS: HEMORRHAGE: None DWI: No evidence of an acute or early subacute infarction. BRAIN PARENCHYMA: Mcgee-white matter differentiation is preserved. There is no mass, mass effect or abnormal extra-axial fluid collection. There is a partially empty sella ENHANCEMENT: No abnormal intracranial enhancement. VENTRICLES: The ventricles are normal in size, shape and configuration. CRANIUM: There is normal bone marrow signal pattern. ORBITS: Grossly unremarkable. PARANASAL SINUSES/MASTOIDS: Predominantly clear VASCULAR SYSTEM: There are normal signal voids in the larger intracranial arteries. OTHER FINDINGS: None . IMPRESSION: No acute intracranial abnormality.
--- NOTE | 2016-11-26 16:09 | PN ---
DATE: 11/26/2016 LOCATION: In room 363. SUBJECTIVE: This is a 51-year-old female with recent uncontrolled type 2 insulin-requiring diabetes, presenting here with marked hyperglycemic accelerations despite a combination of insulin therapy giv en at home as noted. There is also a very big factor of nonadherence to her insulin regimen, as per the staff. LABORATORY DATA: Her latest chemistries today showed a BUN of 16, sodium 137, potassium 3.8, chlorid e 107, CO2 24, glucose 186, and creatinine 0.8. Her A1c level is 12.1%, indicative of very poor outp atient metabolic control of her diabetic condition despite current combination of a premixed and basa l insulin as given. Her glucose values have ranged from 186 to 349 mg/dL. The latest glucose level at lunchtime was 205 to 248 mg/dL. ASSESSMENT AND PLAN: So, at this time, will modify once again her basal and bolus insulin regimen an d increase the Levemir to 30 units subcutaneous at bedtime daily to start tonight. Will continue the low-dose correction scale using Humalog insulin as given. Will also continue the Humalog, given as 14 units subcutaneous t.i.d. before meals as ordered, as her oral intake is quite variable as noted t hereof. Will add oral hypoglycemic drug therapy to hopefully lower insulin resistance thereof. Will add Januvia given as 100 mg once daily and metformin 850 mg b.i.d. as ordered, and this will actuall y start today as given. Will obtain serial chemistries and supplement accordingly as needed. Will a lso continue the IV hydration as given to replenish the lost fluids and electrolytes as expected. Wi ll reinforce diabetic education and dietary instructions at the time of this admission, especially in the light of very poor adherence to outpatient management of her diabetic condition. Will follow an d advise accordingly. Will also continue the levothyroxine given at 75 mcg daily as ordered. Will f yaquelin. Leslie Hermosillo MD cc: [phone] TT: 11/26/2016 16:09:12 Confirmation # [id number] Dictation # [id number] dn
--- NOTE | 2016-11-26 19:09 | CON ---
DATE: 11/26/2016 CHIEF COMPLAINT: Dizziness and headache. HISTORY OF PRESENT ILLNESS: This is a 51-year-old woman with past medical history of insulin-depende nt diabetes mellitus, hypertension, coronary artery disease, anxiety, depression, COPD, hypothyroidis m, history of dizziness in the past secondary to hyperglycemic accelerations and history of neurologi c form of headache, was placed on gabapentin 400 mg p.o. at bedtime in the past, has been noncomplian t with management of her blood sugars. She came in with a blood sugar of 612 and A1c is now 12.1 ind icating poorly controlled diabetes which is most likely responsible for elevated headaches as well as dizziness. Her MRI of the brain was unremarkable for any acute intracranial abnormality. She has n o focal weakness. She occasionally gets paresthesias in the extremities, likely from poorly controll ed diabetes. Endocrinology is on board and has been doing her diabetic management and education. PAST MEDICAL HISTORY: Diabetes, hypertension, coronary artery disease, anxiety, depression, COPD, hi story of hypothyroidism, history of headaches. PAST SURGICAL HISTORY: Cardiac stent x 1 two years ago, tonsillectomy and left ankle surgery. SOCIAL HISTORY: Previous tobacco use, quit 20 years ago. Occasional ETOH use. No illicit drug use. ALLERGIES: SULFA. REVIEW OF SYSTEMS: A 14-point review of systems is negative except in the HPI. PHYSICAL EXAMINATION: VITAL SIGNS: Temperature 99.1, pulse rate of 77, blood pressure 137/75, respiratory rate 19, oxygen saturation 99% on room air. GENERAL: The patient is sitting up in bed in no acute distress. HEENT: Atraumatic, normocephalic. PERRLA. Extraocular muscles intact. NECK: Supple, no JVD, no adenopathy noted. LUNGS: Clear to auscultation. No adventitious sounds. HEART: S1, S2, normal rate and rhythm. No murmurs, rubs, or gallops. ABDOMEN: Soft, nontender, nondistended. Bowel sounds are present. EXTREMITIES: No clubbing, no cyanosis. Peripheral pulses 2+ bilaterally. NEUROLOGIC: The patient is alert, oriented to person, place, month and year. Speech is fluent, with out any errors. Cranial nerves II-XII are intact. MOTOR: Normal tone, normal bulk of muscle. Move s all extremities equally. No pronator drift seen. Toes are downgoing bilaterally. SENSORY: Decreased light touch and pinprick up to the calves, decreased vibration of the toes. DTRs 2+, 1 at the ankles. COORDINATION: Intact. GAIT: Deferred for now. LABORATORY DATA: A1c 12.1. Sodium is 137, potassium 3.8, chloride 107, carbon dioxide 24, BUN of 16 , creatinine 0.8, random glucose 186. ASSESSMENT AND PLAN: This is a 51-year-old woman with history of insulin-dependent diabetes mellitus , hypertension, coronary artery disease, depression, chronic obstructive pulmonary disease, hypothyro idism, history of dizziness secondary hyperglycemics accelerations, history of a neurologic form of suha lopezeva, who came in with hypoglycemia with a blood sugar of 612 with an A1c 12.1, indicating poorly controlled diabetes, ____, dizziness, headache. Her headache and dizziness is more secondary to hypo glycemia with a neurologic form component. At this time, recommend: 1. To increase her gabapentin from 400 to 600 mg p.o. at bedtime. 2. Fioricet of acute onset of headache 1-2 tabs q. 4 hours. Avoid narcotics. 3. She needs better diabetic management and diabetic education per endocrinology and adjust her diab etic medications since she has hyperglycemic accelerations and needs more medical compliance. 4. Continue with aspirin 81 mg and Plavix 75 mg and a statin for stroke prevention. 5. Continue with Synthroid for hypothyroidism. Continue with current present medical management. No further neurological workup at this time. Plea se continue to monitor her blood sugars and keep between 140-180 and her metabolic component stable. No further neurological workup at this time. We will sign off. Alejandro Quick MD cc: [phone] TT: 11/26/2016 19:08:50 Confirmation # [id number] Dictation # [id number] marichuy
[2016-11-26] MEDS ORDERED: Insulin Detemir 100 units/ml Vial (Levemir) SC SCH (22:00)
[2016-11-27] MEDS: Sodium Chloride 0.45% 1,000 ML IV SCH ×2 (00:19→10:14)
[2016-11-27] MEDS: Apap-Butalbital-Caffeine 325-50-40mg Tab PO PRN (02:11)
[2016-11-27 06:56] LABS: ADD MANUAL DIFF? NO
[2016-11-27 07:12] LABS: BASO # 0.01 K/mm3 (0.0-2.0); BASO % 0.2 % (0.0-3.0); EOS % 0.2 % (1.5-5.0); GRAN % 59.2 % (50.0-68.0); HEMATOCRIT 35.7 % (36.0-48.0); LYMPH # 2.2 (1.2-3.4); MEAN CELL VOLUME 84.6 fL (80.0-105.0); MEAN CORPUSCULAR HEMOGLOBIN 28.2 pg (25.0-35.0); MEAN CORPUSCULAR HGB CONC 33.3 g/dl (31.0-37.0); MONO # 0.3 (0.1-0.6); MONO % 5.4 % (1.0-6.0); PLATELET COUNT 105 10^3/uL (120.0-450.0); WHITE BLOOD COUNT 6.3 10^3/ul (4.5-11.0)
[2016-11-27 07:27] LABS: ALB/GLOB RATIO 1.3 (1.1-1.8); ALKALINE PHOSPHATASE 96 U/L (38-133); ALT/SGPT 38 U/L (7-56); AST/SGOT 23 U/L (15-39); BILIRUBIN,TOTAL 0.3 mg/dL (0.2-1.3); BLOOD UREA NITROGEN 16 mg/dL (7-21); CARBON DIOXIDE 23 mmol/L (21-33); CHLORIDE 107 mmol/L (95-110); GFR AFRICAN-AMERICAN > 60; GLUCOSE,RANDOM 187 mg/dL (70-110); POTASSIUM 3.8 mmol/L (3.6-5.0); SODIUM 137 mmol/L (132-148); TOTAL PROTEIN 6.1 g/dL (5.8-8.3)
[2016-11-27] MEDS: Insulin Lispro (humaLOG) LOW Coverage SC SCH ×2 (08:07→11:41)
[2016-11-27 08:14] VITALS: PULSE 78; RESP 20; TEMP 98.1; O2SAT 98
[2016-11-27] MEDS: Arformoterol 15 mcg/2 ml Inh Sol IH SCH (08:19)
[2016-11-27] MEDS: Budesonide 0.5 mg/2 ml Inhal Susp UD IH SCH (08:20)
[2016-11-27] MEDS: Insulin Lispro 1 UNITS/0.01 ML SC SCH ×2 (08:42→11:39)
[2016-11-27] MEDS: Levothyroxine 75 MCG TAB PO SCH (10:14)
[2016-11-27 10:15] VITALS: BP 110/66
--- NOTE | 2016-11-27 20:11 | PN ---
DATE: 11/27/2016 ROOM: 363. SUBJECTIVE: This is a 51-year-old female with recent uncontrolled type 2 insulin-requiring diabetes, now being followed closely for metabolic management. She presented here with marked hyperglycemic a ccelerations with dose adjustments undertaken thereof. Her latest glucose levels have ranged from 19 3-230 mg/dL. It was 124 at bedtime last night. The latest chemistries showed a BUN of 16, sodium 13 7, potassium 3.8, chloride 107, CO2 of 23, glucose 187 and creatinine 0.9. Her A1c is 12.1%, which i s quite elevated, indicative of suboptimal metabolic control of her diabetic condition. So at this t roby, we will continue the same basal and bolus insulin regimen to allow for dose equilibration and ke ep her on the Levemir modified to 30 units subQ at bedtime daily as ordered. We will also continue t he Humalog given as 14 units subQ t.i.d. before meals as given. We will continue the oral hypoglycem ic drug therapy with Januvia given as 100 mg daily and metformin at 850 mg b.i.d. after meals as orde red. We will continue also the levothyroxine given as 75 mcg once daily as ordered. We will titrate incrementally as indicated to optimize metabolic control. We will follow. Leslie Hermosillo MD cc: [phone] TT: 11/27/2016 20:10:59 Confirmation # [id number] Dictation # [id number] esperanza
== END 2016-11-27 14:31 | disposition home or self-care (01) ==
LOC: ED 11:37 → ERH 13:02 → 3RNO 14:55
PROVIDERS: ADMIT Hospitalist; ATTEND Hospitalist
DX: E11.65 Type 2 diabetes mellitus with hyperglycemia (principal); E11.319 Type 2 diabetes mellitus with unspecified diabetic retinopathy without macular edema; E11.42 Type 2 diabetes mellitus with diabetic polyneuropathy; E11.649 Type 2 diabetes mellitus with hypoglycemia without coma; E03.9 Hypothyroidism, unspecified; E78.5 Hyperlipidemia, unspecified; E86.0 Dehydration; E87.1 Hypo-osmolality and hyponatremia; E88.81 Metabolic syndrome and other insulin resistance; F32.89 Other specified depressive episodes; F41.1 Generalized anxiety disorder; I11.9 Hypertensive heart disease without heart failure; I25.10 Atherosclerotic heart disease of native coronary artery without angina pectoris; I73.9 Peripheral vascular disease, unspecified; J44.9 Chronic obstructive pulmonary disease, unspecified; Z91.81 History of falling; Z79.4 Long term (current) use of insulin; Z79.84 Long term (current) use of oral hypoglycemic drugs; Z79.899 Other long term (current) drug therapy; Z87.891 Personal history of nicotine dependence; Z90.49 Acquired absence of other specified parts of digestive tract; Z91.19 Patient's noncompliance with other medical treatment and regimen; Z95.5 Presence of coronary angioplasty implant and graft; D64.9 Anemia, unspecified; M19.90 Unspecified osteoarthritis, unspecified site; M54.30 Sciatica, unspecified side; Z91.410 Personal history of adult physical and sexual abuse; Z91.411 Personal history of adult psychological abuse; Z88.2 Allergy status to sulfonamides; R51 Headache; R42 Dizziness and giddiness
CPT/HCPCS: 36415; 70553; 71020; 80053; 80061; 81003; 82550; 82803; 82948; 83036; 83615; 83690; 83735; 84439; 84443; 84484; 85025; 85610; 85730; 93005; 94640; 96360; 96361; 96372; 97116; 97161; 99285; A9579; G0378; G8978; G8979; J1644; J7030; J7040

== ENCOUNTER 2017-05-03 06:42 | Day surgery (SDC) | payer MEDICAID ==
[2017-04-27 14:44] VITALS: BMI 32.5
[2017-05-03 07:28] LABS: BASO # 0.02 K/mm3 (0.0-2.0); BASO % 0.2 % (0.0-3.0); EOS # 0.1 (0.0-0.7); EOS % 0.8 % (1.5-5.0); GRAN # 5.89 (1.4-6.5); GRAN % 68.7 % (50.0-68.0); HEMATOCRIT 34.5 % (36.0-48.0); LYMPH # 2.1 (1.2-3.4); LYMPH % 24.3 % (22.0-35.0); MEAN CELL VOLUME 83.3 fl (80.0-105.0); MEAN CORPUSCULAR HGB CONC 33.6 g/dl (31.0-37.0); MEAN PLATELET VOLUME 10.7 fl (7.0-11.0); MONO # 0.5 (0.1-0.6); RED CELL DISTRIBUTION WIDTH 13.6 % (11.5-14.5); WHITE BLOOD COUNT 8.6 10^3/ul (4.5-11.0)
[2017-05-03 07:42] LABS: BLOOD UREA NITROGEN 21 mg/dL (7-21); CALCIUM 9.8 mg/dL (8.4-10.5); CARBON DIOXIDE 29 mmol/L (21-33); CHLORIDE 101 mmol/L (98-107); CHOLESTEROL 154 mg/dL (130-200); GFR AFRICAN-AMERICAN > 60; GLUCOSE,RANDOM 239 mg/dL (70-110); INR 1.02 (0.93-1.08); PARTIAL THROMBOPLASTIN TIME 27.2 Seconds (25.1-36.5); POTASSIUM 4.5 mmol/L (3.6-5.0); SODIUM 139 mmol/L (132-148)
--- NOTE | 2017-05-03 08:13 | HP ---
REASON FOR ADMISSION: Left heart cath, possible angioplasty, complaining of chest pain, tightness and dyspnea on exertion. BRIEF CLINICAL HISTORY: This is a 52-year-old female with past medical history significant for COPD, diabetes, hypertension, hyperlipidemia, gastroesophageal reflux, coronary artery disease, status post history PTCA of LAD in 06/2014, who recently complaining of dyspnea on exertion, chest pain on exertion. The patient had a stress test dated 07/31/2016, was negative. Now, the patient was recently seen by Dr. Pacheco's office on 04/19/2017, complaining of new onset of chest pain and dyspnea on exertion so patient continued for elective cardiac cath, possible angioplasty. PAST MEDICAL HISTORY: Significant for PTCA stent in LAD in 07/06/2014 followed by patient and again catheterization on 01/21/2015 because of abnormal stress test dated 01/17/2015. Cardiac catheterization revealed stenosis LAD, patent stent, preserved LV function with ejection fraction of 65%. Medical treatment recommended. History of diabetes, hypertension, hyperlipidemia, gastroesophageal reflux, hypothyroidism, anxiety, depression, coronary artery disease as above. PREVIOUS CARDIAC WORKUP: As follows: The patient had PTCA stent in 07/06/2014 followed by stress test on 01/17/2015, that is abnormal so patient had cardiac catheterization repeat on 01/21/2015 that shows patent stent in proximal LAD and mid LAD 55% stenosis non-flow limiting . Ejection fraction of 55%. The patient had last stress test on 07/31/2016 that showed essentially normal myocardial perfusion study, ejection fraction of 61%. The patient had a echocardiography done on 04/13/2017 that shows aortic valve probably normal. Ejection fraction of 65%. No PE, no vegetation, trace aortic regurgitation, mild mitral regurgitation, trace to mild tricuspid regurgitation, RV systolic pressure of 18. REVIEW OF SYSTEMS: As per HPI. SOCIAL HISTORY: Used to smoke a pack for 10 years, stopped more than 10 years. Denies any history of drinking. ALLERGIES: SULFA DRUGS. CURRENT MEDICATIONS: The patient is taking metformin 850 mg, omeprazole, metoprolol, meclizine, Antivert, lisinopril, levothyroxine, insulin, gabapentin, clopidogrel, atorvastatin, aspirin, amitriptyline, albuterol, acetaminophen. PHYSICAL EXAMINATION: As follows: VITAL SIGNS: Height of the patient is 4 feet 11 inches, weight of the patient 161 pounds. Body mass index 32.7 kg/m2. Heart rate 80 and blood pressure 140/80. HEENT: PERRLA intact. NECK: Supple. No carotid bruits. No thyromegaly. CHEST: Clear to auscultation. HEART: S1 and S2 regular. ABDOMEN: Soft. EXTREMITIES: Clubbing and cyanosis negative. LABORATORY DATA: Blood workup pending. IMPRESSION: New onset of angina, unstable angina, diabetes, hypertension, hyperlipidemia, hypothyroidism, obesity, history of coronary artery disease status post stent in mid left anterior descending on 07/15/2014. Repeat catheterization in 01/2015, patent stent 50% mid left anterior descending stenosis, non-flow limiting ejection fraction 60% to 65%. Most recent echocardiogram shows preserved left ventricle function ejection fraction 50% to 55%, trace aortic regurgitation, trace to mild mitral regurgitation, mild mitral regurgitation, mild tricuspid regurgitation, right ventricular systolic pressure of 22, trace PI. Last stress test in 07/2016 was negative. Possibly new onset of angina recommended, loaded with Plavix and aspirin. Further recommendation after the cardiac catheterization reviewed and blood workup. We will follow with you. Thank you providing us the opportunity in taking care of Dina Colvin. Rhett Lou MD
[2017-05-03] MEDS ORDERED: Lidocaine 2% Inj (20ml) ONE (08:35)
[2017-05-03] MEDS ORDERED: Midazolam 2 MG/2 ML VIAL ONE (08:41)
[2017-05-03] MEDS ORDERED: Sodium Chloride 0.9% 1,000 ML IV SCH (10:00)
[2017-05-03 10:22] VITALS: TEMP 98.3
[2017-05-03] MEDS ORDERED: Insulin Reg-LOW-Coverage SC SCH (11:30)
[2017-05-03] MEDS ORDERED: Insulin Regular 100 units/ml ONE (11:34)
[2017-05-03] MEDS ORDERED: Insulin Reg-LOW-Coverage SC ONE (11:38)
[2017-05-03 12:05] VITALS: RESP 20
[2017-05-03 13:16] VITALS: O2SAT 99
[2017-05-03 14:00] VITALS: BP 134/74; PULSE 85
--- NOTE | 2017-05-03 15:21 | CARD ---
APPROVED REPORT Procedure(s) performed: Left Heart Catheterization HISTORY 7 days), most recent EF: 63%. (EF Method: RADIONUCLIDE), diabetes mellitus with insulin treatment , chronic lung disease, previous diagnostic cath, tobacco history() : The patient is a former smoker , previous PCI (The PCI date was 07/09/2014), hypertension , dyslipidemia , Having recurrent Chest pain and SCHMIDT. INDICATION The indication(s) include : chest pain, dizziness and vertigo, dyspnea. CASE TECHNIQUE The patient was brought electively to the Cardiac Catheterization Laboratory in a fasting state and was prepped and draped in a sterile manner. The right femoral groin was infiltrated with 2% Lidocaine subcutaneous anesthesia. A 6 Fr x 11 cm Vivian sheath was inserted into the right femoral artery without difficulty. Coronary angiography was performed using coronary diagnostic catheters. The left coronary system was accessed and visualized with a Diagnostic ,6 Fr JL3.5 catheter. The right coronary system was accessed and visualized with a Diagnostic ,6 Fr JR 4 catheter. The left ventricle was accessed and visualized with a 5 Fr Pigtail 145 (Angled) catheter. Left ventricular/Aortic Valve gradient assessed on pullback. Left ventriculogram was performed in DIGGS projection. Closure device was deployed with a 6 Fr / 7 Fr MynxGrip without any complications. The patient tolerated the procedure well and there were no complications associated with the procedure. Vessel Analysis The patient's coronary anatomy is right dominant. The left main coronary artery is a medium size vessel with intimal irregularities and without significant stenosis. The left main bifurcates to the left anterior descending and circumflex. The left anterior descending artery is a medium size vessel with intimal irregularities and without significant stenosis. Patent stent noted proximally, distal to stent 40% There is a 50-60% stenosis in the very distal segment diffusely diseased, but no focal flow limiting stenosis. The first diagonal branch is a large size vessel with intimal irregularities and without significant stenosis. The circumflex artery is a small size vessel with diffuse calcification noted throughout this vessel and without significant stenosis. The right coronary artery is a large size vessel with intimal irregularities and without significant stenosis. There is a 30% stenosis in the mid segment. The right posterior descending artery is a large size vessel with intimal irregularities and without significant stenosis. The right posterolateral branch is a medium size vessel with intimal irregularities and without significant stenosis. Left Ventricle The left ventricle is normal in size with normal contractility. There was no cardiomyopathy. The left ventricular ejection fraction is estimated to be 60%. The left ventricular end diastolic pressure is 14 mmHg. There was no gradient across the aortic valve upon pullback. Conclusion Patent Stent in Proximal LAD, Distal to stent 40% stenosis in mid LAD,. Distal LAD is diffusely Diseased Like a thread 50-60% stenosis, but no flow limitimg focal stenosis. D1 is larger than LAD, small Circumflex artery. Super dominant RCA mild Disease. Preserved LV FX, EF-60%, EDP-14 mmof Hg. Recommendations Aggressive Medical TherapyCardiac Risk Reduction Program CC; DR. Roy/ Tara.
--- NOTE | 2017-05-03 23:16 | CARD ---
APPROVED REPORT EKG Measurement Heart [id number] MO [id number] <Conclusion> Normal sinus rhythm Normal ECG
== END 2017-05-03 15:30 | disposition home or self-care (01) ==
LOC: CATH 06:42
PROVIDERS: ATTEND Internal Medicine Cardiovascular Disease
DX: I25.10 Atherosclerotic heart disease of native coronary artery without angina pectoris (principal); E78.5 Hyperlipidemia, unspecified; I10 Essential (primary) hypertension; E11.9 Type 2 diabetes mellitus without complications; Z79.4 Long term (current) use of insulin; J44.9 Chronic obstructive pulmonary disease, unspecified; K21.9 Gastro-esophageal reflux disease without esophagitis; E03.9 Hypothyroidism, unspecified; E66.9 Obesity, unspecified; F41.9 Anxiety disorder, unspecified; Z95.5 Presence of coronary angioplasty implant and graft; Z87.891 Personal history of nicotine dependence
CPT/HCPCS: 36415; 80048; 80061; 82948; 85025; 85610; 85730; 86850; 86900; 93005; 93458; 99152; C1760; C1769; C2629; J1644; J2250; J3010; J7040 ×2; Q9967

== ENCOUNTER 2017-08-18 12:46 | Emergency (ER) | payer MEDICAID ==
[2017-08-18 12:46] VITALS: BMI 32.5
[2017-08-18 13:08] VITALS: RESP 18; TEMP 98.7; O2SAT 100
--- NOTE | 2017-08-18 13:41 | ED PDOC ---
Arrival/HPI - General Chief Complaint: Cough, Cold, Congestion Time Seen by Provider: 08/18/17 12:52 Historian: Patient - History of Present Illness Narrative History of Present Illness (Text): 08/18/17 13:33 A 52 year old female, whose past medical history includes insulin dependent diabetes, hypothyroidism, asthma, COPD, and cardiac stents, presents to the emergency department complaining of cough and shortness of breath since yesterday. Patient reports also experiencing wheezing, left lung pain in chest, nasal congestion, back pain, throat pain, and decreased appetite. Patient denies any recent leg swelling or any other complaints at this time. Also, patient mentions having pump and oxygen machine at home. PMD: Dr. Roy Toe Stapler: Dr. Pacheco Time/Duration: 24 hours Symptom Onset: Sudden Symptom Course: Unchanged Past Medical History - Provider Review Nursing Documentation Reviewed: Yes - Past History Past History: No Previous - Infectious Disease Hx of Infectious Diseases: None - Tetanus Immunization Tetanus Immunization: Unknown - Cardiac Hx Cardiac Disorders: Yes Hx Hypertension: Yes Hx Pacemaker: No - Pulmonary Hx Respiratory Disorders: Yes Hx Chronic Obstructive Pulmonary Disease (COPD): Yes - Neurological Hx Neurological Disorder: No Hx Paralysis: No - HEENT Hx HEENT Disorder: Yes (eyeglasses) - Renal Hx Renal Disorder: No - Endocrine/Metabolic Hx Diabetes Mellitus Type 2: Yes Hx Hypothyroidism: Yes - Hematological/Oncological Hx Blood Transfusions: No Hx Blood Transfusion Reaction: No - Integumentary Hx Dermatological Disorder: No - Musculoskeletal/Rheumatological Hx Musculoskeletal Disorders: Yes - Gastrointestinal Hx Gastrointestinal Disorders: No - Genitourinary/Gynecological Hx Genitourinary Disorders: No - Psychiatric Hx Emotional Abuse: No Hx Physical Abuse: No Hx Substance Use: No - Surgical History Hx Appendectomy: Yes Hx Cardiac Catheterization: Yes Hx Coronary Stent: Yes Hx Hysterectomy: Yes Hx Tonsillectomy: Yes - Anesthesia Hx Anesthesia: Yes Hx Anesthesia Reactions: No Hx Malignant Hyperthermia: No - Suicidal Assessment Feels Threatened In Home Enviroment: No Family/Social History - Physician Review Nursing Documentation Reviewed: Yes Family/Social History: No Known Family HX Smoking Status: Former Smoker Hx Alcohol Use: No Hx Substance Use: No Hx Substance Use Treatment: No Allergies/Home Meds Allergies/Adverse Reactions: Allergies Sulfa (Sulfonamide Antibiotics) Allergy (Verified 08/18/17 12:55) FATIGUE Home Medications: Home Meds Medication Instructions Recorded Confirmed Amlodipine Besylate [Norvasc] 10 mg PO DAILY 07/17/15 08/18/17 Atorvastatin [Lipitor] 40 mg PO DAILY 07/17/15 08/18/17 Amitriptyline [Elavil] 50 mg PO HS 04/27/17 08/18/17 Insulin Glargine,Hum.rec.anlog 40 unit SQ HS 04/27/17 08/18/17 [Basaglar Kwikpen U-100] Insulin Lispro [humALOG] 15 units SC ACTID 04/27/17 08/18/17 Meclizine [Antivert] 25 mg PO DAILY 04/27/17 08/18/17 Metoprolol Tartrate [Lopressor] 50 mg PO BID 04/27/17 08/18/17 Omeprazole 20 mg PO DAILY 04/27/17 08/18/17 Levothyroxine [Synthroid] 100 mcg PO ACB 08/18/17 08/18/17 Review of Systems - Physician Review All systems were reviewed & negative as marked: Yes - Review of Systems ENT: Sinus Congestion, Other (throat pain) Respiratory: SOB, Cough, Wheezing Cardiovascular: Chest Pain (left lung pain in chest) Gastrointestinal: Appetite Changes (decreased appetite) Musculoskeletal: Back Pain, Myalgias. absent: Other (no recent leg swelling) Physical Exam Vital Signs Reviewed: Yes Vital Signs Temp Pulse Resp BP Pulse Ox 08/18/17 17:45 74 18 135/64 100 08/18/17 16:35 79 18 138/68 100 08/18/17 14:55 89 18 144/71 100 08/18/17 13:06 98.7 F 98 H 18 146/79 100 Temperature: Afebrile Blood Pressure: Normal Pulse: Regular Respiratory Rate: Tachypneic Appearance: Positive for: Well-Appearing Pain Distress: None Mental Status: Positive for: Alert and Oriented X 3 - Systems Exam Neck: Present: Other (left-sided tenderness) Respiratory/Chest: Present: Wheezes (bilaterally), Decreased Breath Sounds ( bilaterally), Other (chest wall tenderness) Cardiovascular: Present: Regular Rate and Rhythm, Normal S1, S2. No: Murmurs Abdomen: Present: Normal Bowel Sounds. No: Tenderness, Distention, Peritoneal Signs Back: Present: Other (left upper back tenderness) Lower Extremity: No: Swelling Neurological: Present: GCS=15, CN II-XII Intact, Speech Normal Psychiatric: Present: Alert, Oriented x 3, Normal Insight, Normal Concentration Medical Decision Making ED Course and Treatment: 08/18/17 13:36 Impression: 52 year old female with shortness of breath and cough. Physical exam shows chest wall tenderness, lower back tenderness, left side neck tenderness, decreased breath sounds and wheezing bilaterally. Differential Diagnosis included but are not limited to: Asthma and COPD Exacerbation, rule out Pneumonia vs. Influenza Plan: -- EKG -- Chest X-ray -- Labs -- Blood Culture -- Duoneb -- SOLU-Medrol -- Reassess and disposition Prior Visits: Notes and results from previous visits were reviewed. Patient was last seen in the emergency department on 11/25/2016 sent by PMD for high blood sugar. Patient was admitted. Progress Notes: EKG: Ordered, reviewed, and independently interpreted the EKG. Rate : 94 BPM Rhythm : NSR Interpretation : No ST-segment elevations or depressions, no T-wave inversions, normal intervals. Comparison : No previous EKG for comparison. 08/18/2017 14:02 Chest X-ray IMPRESSION: No active disease. Dictator: Jorge Holloway MD 08/18/17 17:37 Glucose elevated and treated with IVF and Insulin with improvement. On re-evaluation, patient feels better and states she would like to go home. She notes her back pain has improved after receiving Tramadol. Patients lungs are clear to auscultation with good air entry bilaterally, no retractions. Patient is able to ambulate around the emergency room without any respiratory difficulty. Patient instructed to continue medication at home for her diabetes and follow up with PMD. Will discharge home with a diabetic diet. - Lab Interpretations Lab Results: 08/18/17 14:00 08/18/17 14:00 Lab Results 08/18/17 16:34: POC Glucose (mg/dL) 303 H 08/18/17 14:00: Influenza Typ A,B (EIA) Negative for flu a/b 08/18/17 14:00: Sodium 138, Potassium 4.8, Chloride 100, Carbon Dioxide 22, Anion Gap 21 H, BUN 24 H, Creatinine 1.2, Est GFR ( Amer) 57, Est GFR ( Non-Af Amer) 47, Random Glucose 389 H* D, Calcium 10.1, Lactate Dehydrogenase 330 L, Total Creatine Kinase 63, Troponin I < 0.01, NT-Pro-B Natriuret Pep 262 08/18/17 14:00: WBC 7.2, RBC 4.15, Hgb 11.3 L, Hct 34.2 L, MCV 82.4, MCH 27.2, MCHC 33.0, RDW 13.3, Plt Count 124, MPV 11.6 H, Gran % 79.5 H, Lymph % (Auto) 14.5 L, [place] % (Auto) 5.5, Eos % (Auto) 0.4 L, Baso % (Auto) 0.1, Gran # 5.68, Lymph # (Auto) 1.0 L, [place] # (Auto) 0.4, Eos # (Auto) 0.0, Baso # (Auto) 0.01 - RAD Interpretation Radiology Orders: 08/18/17 13:37 CHEST PORTABLE [RAD] Stat - Medication Orders Current Medication Orders: Discontinued Medications Albuterol/Ipratropium (Duoneb 3 Mg/0.5 Mg (3 Ml) Ud) 3 ml IH Q15M AYDIN Stop: 08/18/17 14:16 Last Admin: 08/18/17 14:40 Dose: 3 ml Sodium Chloride (Sodium Chloride 0.9%) 1,000 mls @ 999 mls/hr IV .Q1H1M STA Stop: 08/18/17 16:38 Last Admin: 08/18/17 16:38 Dose: 999 mls/hr eMAR Start Stop Document 08/18/17 16:38 SF (Rec: 08/18/17 16:38 SF [facility] [id number]) Intravenous Solution Start Date 08/18/17 Start Time 16:38 End Date 08/18/17 End time 17:39 Total Infusion Time 61 Insulin Human Regular (Humulin R) 6 units IVP STAT STA Stop: 08/18/17 15:39 Last Admin: 08/18/17 16:37 Dose: 6 units MAR Blood Glucose Document 08/18/17 16:37 SF (Rec: 08/18/17 16:37 SF [email or web address]) Blood Glucose Finger Stick Blood Glucose (70-120) 303 IVP Administration Document 08/18/17 16:37 SF (Rec: 08/18/17 16:37 SF [facility] [id number]) Charges for Administration # of IVP Administrations 1 Methylprednisolone (Solu-Medrol) 125 mg IVP STAT STA Stop: 08/18/17 13:37 Last Admin: 08/18/17 14:28 Dose: 125 mg IVP Administration Document 08/18/17 14:28 SF (Rec: 08/18/17 14:28 SF [facility] [id number]) Charges for Administration # of IVP Administrations 1 Promethazine HCl/Codeine (Phenergan/Codeine Oral Syrup) 5 ml PO STAT STA Stop: 08/18/17 14:59 Last Admin: 08/18/17 16:37 Dose: 5 ml Tramadol HCl (Ultram) 50 mg PO STAT STA Stop: 08/18/17 16:28 Last Admin: 08/18/17 16:56 Dose: 50 mg MAR Pain Assessment Document 08/18/17 16:56 SF (Rec: 08/18/17 16:56 [id number] Pain Reassessment Is this a pain reassessment? Yes Sleep Is patient sleeping during reassessment? No Presence of Pain Presence of Pain Yes Pain Scale Used Pain Scale Used Numeric - Scribe Statement The provider has reviewed the documentation as recorded by the Noel Soriano Provider Scribe Attestation: All medical record entries made by the Saraibavery were at my direction and personally dictated by me. I have reviewed the chart and agree that the record accurately reflects my personal performance of the history, physical exam, medical decision making, and the department course for this patient. I have also personally directed, reviewed, and agree with the discharge instructions and disposition. Disposition/Present on Arrival - Present on Arrival Any Indicators Present on Arrival: No History of DVT/PE: No History of Uncontrolled Diabetes: Yes Urinary Catheter: No History of Decub. Ulcer: No History Surgical Site Infection Following: None - Disposition Have Diagnosis and Disposition been Completed?: Yes Diagnosis: Asthma, Chronic obstructive airway disease, Back pain, Uncontrolled diabetes mellitus Disposition: HOME/ ROUTINE Disposition Time: 17:37 Patient Plan: Discharge Patient Problems: Current Active Problems Problem Status Onset Asthma Acute Back pain Acute Chronic obstructive airway disease Acute Uncontrolled diabetes mellitus Acute Condition: IMPROVED Additional Instructions: Colvin, thank you for letting us take care of you today. Your provider was Dr. Chapa. You were treated for Asthma/COPD, Diabetes, BAck Pain. The emergency medical care you received today was directed at your acute symptoms. If you were prescribed any medication, please fill it and take as directed. It may take several days for your symptoms to resolve. Return to the Emergency Department if your symptoms worsen, do not improve, or if you have any other problems. Please contact your doctor or call one of the physicians/clinics you have been referred to that are listed on the Patient Visit Information form that is included in your discharge packet. Bring any paperwork you were given at discharge with you along with any medications you are taking to your follow up visit. Our treatment cannot replace ongoing medical care by a primary care provider (PCP) outside of the emergency department. Thank you for allowing the [facility] team to be part of your care today. If you had an X-Ray or CT scan: A Radiologist will review the ED reading if any change in treatment is needed we will contact you. If you had a blood, urine, or wound culture: It will take several days for the results, if any change in treatment is needed we will contact you. If you had an STI test: It will take 48 hours for the results. Please call after 1 week if you have not heard back. Prescriptions: Albuterol HFA [Ventolin HFA 90 mcg/actuation (8 g)] 2 puff IH Q4 #1 puff predniSONE [predniSONE Tab] 40 mg PO DAILY #8 tab traMADol [Ultram] 50 mg PO Q6H PRN #10 tab PRN Reason: Pain, Moderate (4-7) Referrals: Christina Roy DO [Family Provider] - Follow up with primary Forms: [employer] ([employer]), WORK NOTE
--- NOTE | 2017-08-18 14:04 | RAD ---
HISTORY: Cough. Rule out pneumonia. COMPARISON: Comparison chest dated 11/25/2016 FINDINGS: LUNGS: No active pulmonary disease. PLEURA: No significant pleural effusion identified, no pneumothorax apparent. CARDIOVASCULAR: Normal. OSSEOUS STRUCTURES: No significant abnormalities. VISUALIZED UPPER ABDOMEN: Normal. OTHER FINDINGS: None. IMPRESSION: No active disease.
[2017-08-18] MEDS: Albuterol-Ipratrop 3 mg / 0.5 (3 ml) UD IH SCH ×3 (14:10→14:40)
[2017-08-18 14:37] LABS: BASO # 0.01 K/mm3 (0.0-2.0); BASO % 0.1 % (0.0-3.0); EOS % 0.4 % (1.5-5.0); GRAN # 5.68 (1.4-6.5); GRAN % 79.5 % (50.0-68.0); HEMOGLOBIN 11.3 g/dL (12.0-16.0); LYMPH % 14.5 % (22.0-35.0); MEAN CELL VOLUME 82.4 fl (80.0-105.0); MEAN CORPUSCULAR HEMOGLOBIN 27.2 pg (25.0-35.0); MEAN PLATELET VOLUME 11.6 fl (7.0-11.0); MONO # 0.4 (0.1-0.6); MONO % 5.5 % (1.0-6.0); RBC 4.15 10^6/uL (3.5-6.1); RED CELL DISTRIBUTION WIDTH 13.3 % (11.5-14.5); WHITE BLOOD COUNT 7.2 10^3/ul (4.5-11.0)
[2017-08-18] MEDS ORDERED: Promethazine/Cod 6.25mg-10mg/5ml Syr UD PO STA (14:58)
[2017-08-18 14:59] LABS: B-TYPE NATRIURETIC PEPTIDE 262 pg/mL (0-450); TROPONIN I < 0.01 ng/mL
[2017-08-18 15:34] LABS: BLOOD UREA NITROGEN 24 mg/dL (7-21); CALCIUM 10.1 mg/dL (8.4-10.5); GFR AFRICAN-AMERICAN 57; GFR NON-AFRICAN AMERICAN 47
[2017-08-18] MEDS ORDERED: Insulin Regular 1 UNITS/0.01 ML ML IVP STA (15:38)
[2017-08-18] MEDS ORDERED: Sodium Chloride 0.9% 1,000 ML IV STA (15:38)
[2017-08-18 17:46] VITALS: BP 135/64; PULSE 74
--- NOTE | 2017-08-19 12:39 | CARD ---
APPROVED REPORT EKG Measurement Heart [id number] <Conclusion> Normal Sinus Rythm.
== END 2017-08-18 17:57 | disposition home or self-care (01) ==
LOC: ED 12:46
DX: J44.9 Chronic obstructive pulmonary disease, unspecified (principal); E11.9 Type 2 diabetes mellitus without complications; M54.9 Dorsalgia, unspecified; Z79.4 Long term (current) use of insulin; Z87.891 Personal history of nicotine dependence
CPT/HCPCS: 71045; 80048; 82550; 82948; 83615; 83880; 84484; 85025; 87040; 87804; 93005; 94150; 96361; 96374; 96375; 99285; J2930; J7040

== ENCOUNTER 2017-09-02 13:27 | Observation (INO) | payer MEDICAID ==
[2017-09-02] MEDS ORDERED: Sodium Chloride 0.9% 1,000 ML IV STA ×2 (13:41→14:42)
[2017-09-02 13:49] VITALS: BMI 37.1
--- NOTE | 2017-09-02 13:53 | ED PDOC ---
Arrival/HPI - General Chief Complaint: High Blood Sugar Time Seen by Provider: 09/02/17 13:37 Historian: Patient - History of Present Illness Narrative History of Present Illness (Text): 09/02/17 13:47 A 52 year old female, whose past medical history includes diabetes and CAD with stent on Aspirin and Plavix, sent into the emergency department by PMD for hyperglycemia. Patient reports generalized fatigue and decrease appetite for 1 week. Patient was seen by PMD earlier today for symptoms and found to have high blood sugar so was sent into the emergency room for further evaluation. Patient reports compliance with insulin. Patient notes nausea, diarrhea and mild chest pain but denies any fever, chills, vomiting, abdominal pain, shortness of breath or any other complaints. PMD: Dr. Roy Field Tax Auditor: Dr. Pacheco 09/02/17 17:22 09/02/17 18:09 Time/Duration: 1 week Symptom Course: Unchanged Context: Home Past Medical History - Provider Review Nursing Documentation Reviewed: Yes - Past History Past History: No Previous - Infectious Disease Hx of Infectious Diseases: None - Tetanus Immunization Tetanus Immunization: Unknown - Cardiac Hx Cardiac Disorders: Yes (CAD, mi) - Pulmonary Hx Respiratory Disorders: Yes Hx Chronic Obstructive Pulmonary Disease (COPD): Yes - Neurological Hx Neurological Disorder: No Hx Paralysis: No - HEENT Hx HEENT Disorder: Yes (eyeglasses) - Renal Hx Renal Disorder: No - Endocrine/Metabolic Hx Diabetes Mellitus Type 2: Yes Hx Hypothyroidism: Yes - Hematological/Oncological Hx Blood Transfusions: No Hx Blood Transfusion Reaction: No - Integumentary Hx Dermatological Disorder: No - Musculoskeletal/Rheumatological Hx Musculoskeletal Disorders: No - Gastrointestinal Hx Gastrointestinal Disorders: No - Genitourinary/Gynecological Hx Genitourinary Disorders: No - Psychiatric Hx Emotional Abuse: No Hx Physical Abuse: No Hx Substance Use: No - Surgical History Hx Cardiac Catheterization: Yes (stent x1) Hx Coronary Stent: Yes Hx Hysterectomy: Yes (Tubal ligation) Hx Orthopedic Surgery: Yes - Anesthesia Hx Anesthesia: Yes Hx Anesthesia Reactions: No Hx Malignant Hyperthermia: No - Suicidal Assessment Feels Threatened In Home Enviroment: No Family/Social History - Physician Review Nursing Documentation Reviewed: Yes Family/Social History: No Known Family HX Smoking Status: Former Smoker Hx Alcohol Use: No Hx Substance Use: No Hx Substance Use Treatment: No Allergies/Home Meds Allergies/Adverse Reactions: Allergies Sulfa (Sulfonamide Antibiotics) Allergy (Verified 09/02/17 13:39) FATIGUE Home Medications: Home Meds Medication Instructions Recorded Confirmed Amlodipine Besylate [Norvasc] 10 mg PO DAILY 07/17/15 08/18/17 Atorvastatin [Lipitor] 40 mg PO DAILY 07/17/15 08/18/17 Amitriptyline [Elavil] 50 mg PO HS 04/27/17 08/18/17 Insulin Glargine,Hum.rec.anlog 40 unit SQ HS 04/27/17 08/18/17 [Basaglar Kwikpen U-100] Insulin Lispro [humALOG] 15 units SC ACTID 04/27/17 08/18/17 Meclizine [Antivert] 25 mg PO DAILY 04/27/17 08/18/17 Metoprolol Tartrate [Lopressor] 50 mg PO BID 04/27/17 08/18/17 Omeprazole 20 mg PO DAILY 04/27/17 08/18/17 Levothyroxine [Synthroid] 100 mcg PO ACB 08/18/17 08/18/17 Review of Systems - Physician Review All systems were reviewed & negative as marked: Yes - Review of Systems Constitutional: Fatigue. absent: Fevers, Night Sweats Respiratory: absent: SOB Cardiovascular: Chest Pain Gastrointestinal: Diarrhea, Nausea, Appetite Changes. absent: Abdominal Pain, Vomiting Physical Exam Vital Signs Reviewed: Yes Vital Signs Temp Pulse Resp BP Pulse Ox 09/02/17 16:12 79 18 148/79 100 09/02/17 15:15 86 18 155/86 H 100 09/02/17 13:40 98.3 F 99 H 18 158/95 H 100 Temperature: Afebrile Blood Pressure: Hypertensive Pulse: Tachycardic Respiratory Rate: Normal Appearance: Positive for: Well-Appearing, Non-Toxic, Comfortable Pain Distress: None Mental Status: Positive for: Alert and Oriented X 3 Finger Stick Blood Glucose: 500 - Systems Exam Head: Present: Atraumatic, Normocephalic Pupils: Present: PERRL Extroacular Muscles: Present: EOMI Conjunctiva: Present: Normal Mouth: Present: Moist Mucous Membranes Neck: Present: Normal Range of Motion. No: Meningeal Signs Respiratory/Chest: Present: Clear to Auscultation, Good Air Exchange. No: Respiratory Distress, Accessory Muscle Use Cardiovascular: Present: Regular Rate and Rhythm, Normal S1, S2. No: Murmurs Abdomen: Present: Normal Bowel Sounds. No: Tenderness, Distention, Peritoneal Signs Upper Extremity: Present: Normal Inspection. No: Cyanosis, Edema Lower Extremity: Present: Normal Inspection. No: Edema Neurological: Present: GCS=15, CN II-XII Intact, Speech Normal Skin: Present: Warm, Dry, Normal Color. No: Rashes Psychiatric: Present: Alert, Oriented x 3, Normal Insight, Normal Concentration Medical Decision Making ED Course and Treatment: 09/02/17 13:47 Impression: A 52 year old female sent in for hyperglycemia. Patient notes fatigue, loss of appetite, nausea, diarrhea and mild chest pain. Plan: -- Chest xray -- EKG -- Labs -- Blood and Urine culture -- Urinalysis -- IV fluids -- Reassess and disposition Progress Notes: EKG shows NSR at 100 BPM with normal intervals, no ST changes. Interpreted by me. Report Date : 09/02/2017 14:16:31 Procedure: Chest xray Dictator : Devon Sanders MD IMPRESSION: No active disease. 09/02/17 17:23 Labs significant for acidosis and hyperglycemia. Improving after insulin and 2L IVF, but still hyperglycemic to >400. No gap. PH improving. Will need tele observation for hyperglycemia and chest pain. - Lab Interpretations Lab Results: 09/02/17 16:10 09/02/17 16:10 Lab Results 09/02/17 17:10: pO2 30, VBG pH 7.30 L, VBG pCO2 46.0, VBG HCO3 22.6, VBG Total CO2 24.0, VBG O2 Sat (Calc) 61.0, VBG Base Excess -4.0 L, VBG Potassium 4.6, Sodium 134.0, Chloride 105.0, Glucose 409 H* D, Lactate 1.3, FiO2 21.0, Venous Blood Potassium 4.6 09/02/17 16:10: Sodium 136, Chloride 106, Potassium 4.6, Carbon Dioxide 22, Anion Gap 13, BUN 28 H, Creatinine 1.0, Est GFR ( Amer) > 60, Est GFR ( Non-Af Amer) 58, Random Glucose 408 H* D, Calcium 9.3, Total Bilirubin 0.3, AST 11 L D, ALT 23, Alkaline Phosphatase 79, Total Protein 6.1, Albumin 3.4, Globulin 2.8, Albumin/Globulin Ratio 1.2 09/02/17 16:10: WBC 9.2, RBC 4.06, Hgb 11.1 L, Hct 32.8 L, MCV 80.8, MCH 27.3, MCHC 33.8, RDW 13.5, Plt Count 164, MPV 11.6 H, Gran % 65.0, Lymph % (Auto) 29.5 , [place] % (Auto) 4.8, Eos % (Auto) 0.4 L, Baso % (Auto) 0.3, Gran # 5.97, Lymph # (Auto) 2.7, [place] # (Auto) 0.4, Eos # (Auto) 0.0, Baso # (Auto) 0.03 09/02/17 16:07: POC Glucose (mg/dL) 484 H* 09/02/17 15:55: Urine Color Colorless, Urine Appearance Clear, Urine pH 6.0, Ur Specific [place] 1.010, Urine Protein Negative, Urine Glucose (UA) >=1000, Urine Ketones Negative, Urine Blood Negative, Urine Nitrate Negative, Urine Bilirubin Negative, Urine Urobilinogen 0.2, Ur Leukocyte Esterase Negative 09/02/17 14:00: Sodium 134, Chloride 96 L, Potassium 4.9, Carbon Dioxide 25, Anion Gap 17, BUN 33 H, Creatinine 1.3 H, Est GFR ( Amer) 52, Est GFR ( Non-Af Amer) 43, Random Glucose 623 H* D, Calcium 11.2 H, Phosphorus 5.2 H, Magnesium 1.6 L, Total Bilirubin 0.4, AST 14, ALT 24, Alkaline Phosphatase 101, Lactate Dehydrogenase 347, Total Creatine Kinase 32 L, Troponin I < 0.01, NT-Pro -B Natriuret Pep 72.8, Total Protein 7.8, Albumin 4.6, Globulin 3.2, Albumin/ Globulin Ratio 1.4 09/02/17 14:00: pO2 35, VBG pH 7.29 L, VBG pCO2 51.0, VBG HCO3 24.5, VBG Total CO2 26.1, VBG O2 Sat (Calc) 70.0 H, VBG Base Excess -2.7 L, VBG Potassium 5.0, Sodium 132.0, Chloride 96.0 L, Glucose 634 H* D, Lactate 1.5, FiO2 21.0, Venous Blood Potassium 5.0 09/02/17 14:00: WBC 11.2 H D, RBC 4.66, Hgb 12.6, Hct 37.7, MCV 80.9, MCH 27.0, MCHC 33.4, RDW 13.4, Plt Count 202, MPV 11.8 H, Gran % 75.5 H, Lymph % (Auto) 20.4 L, [place] % (Auto) 3.8, Eos % (Auto) 0.1 L, Baso % (Auto) 0.2, Gran # 8.46 H , Lymph # (Auto) 2.3, [place] # (Auto) 0.4, Eos # (Auto) 0.0, Baso # (Auto) 0.02 09/02/17 13:33: POC Glucose (mg/dL) > 500 H* I have reviewed the lab results: Yes - RAD Interpretation Radiology Orders: 09/02/17 13:40 CHEST PORTABLE [RAD] Stat - Medication Orders Current Medication Orders: Discontinued Medications Aspirin (Aspirin Chewable) 324 mg PO STAT STA Stop: 09/02/17 17:20 Sodium Chloride (Sodium Chloride 0.9%) 1,000 mls @ 999 mls/hr IV .Q1H1M STA Stop: 09/02/17 14:41 Sodium Chloride (Sodium Chloride 0.9%) 1,000 mls @ 999 mls/hr IV .Q1H1M STA Stop: 09/02/17 15:42 Sodium Chloride (Sodium Chloride 0.9%) 500 mls @ 999 mls/hr IV .Q31M STA Stop: 09/02/17 17:49 Insulin Human Regular (Humulin R) 6 units IV STAT STA Stop: 09/02/17 14:43 Insulin Human Regular (Humulin R) 10 units IV STAT STA Stop: 09/02/17 14:43 Insulin Human Regular (Humulin R) 6 units IV STAT STA Stop: 09/02/17 17:20 - Scribe Statement The provider has reviewed the documentation as recorded by the Saraibavery Wong Provider Scribe Attestation: All medical record entries made by the Scribe were at my direction and personally dictated by me. I have reviewed the chart and agree that the record accurately reflects my personal performance of the history, physical exam, medical decision making, and the department course for this patient. I have also personally directed, reviewed, and agree with the discharge instructions and disposition. Disposition/Present on Arrival - Present on Arrival Any Indicators Present on Arrival: No History of DVT/PE: No History of Uncontrolled Diabetes: Yes Urinary Catheter: No History of Decub. Ulcer: No History Surgical Site Infection Following: None - Disposition Have Diagnosis and Disposition been Completed?: Yes Diagnosis: Hyperglycemia, Chest pain Disposition: HOSPITALIZED Disposition Time: 17:11 Patient Plan: Observation Patient Problems: Current Active Problems Problem Status Onset Chest pain Acute Hyperglycemia Acute Condition: FAIR
--- NOTE | 2017-09-02 14:18 | RAD ---
HISTORY: hyperglycemia COMPARISON: 08/18/2017 FINDINGS: LUNGS: No active pulmonary disease. PLEURA: No significant pleural effusion identified, no pneumothorax apparent. CARDIOVASCULAR: Normal. OSSEOUS STRUCTURES: No significant abnormalities. VISUALIZED UPPER ABDOMEN: Normal. OTHER FINDINGS: None. IMPRESSION: No active disease.
[2017-09-02 14:21] LABS: VENOUS BLOOD GAS BASE EXCESS -2.7 mmol/L (0.0-2.0); VENOUS BLOOD GAS PO2 35 mm/Hg (30-55); VENOUS BLOOD PH 7.29 (7.32-7.43)
[2017-09-02 14:22] LABS: BASO # 0.02 K/mm3 (0.0-2.0); BASO % 0.2 % (0.0-3.0); EOS % 0.1 % (1.5-5.0); GRAN # 8.46 (1.4-6.5); GRAN % 75.5 % (50.0-68.0); HEMOGLOBIN 12.6 g/dL (12.0-16.0); LYMPH # 2.3 (1.2-3.4); LYMPH % 20.4 % (22.0-35.0); MEAN CELL VOLUME 80.9 fl (80.0-105.0); MEAN CORPUSCULAR HGB CONC 33.4 g/dl (31.0-37.0); MEAN PLATELET VOLUME 11.8 fl (7.0-11.0); MONO # 0.4 (0.1-0.6); MONO % 3.8 % (1.0-6.0); RBC 4.66 10^6/uL (3.5-6.1); RED CELL DISTRIBUTION WIDTH 13.4 % (11.5-14.5); WHITE BLOOD COUNT 11.2 10^3/ul (4.5-11.0)
[2017-09-02 14:34] LABS: ALB/GLOB RATIO 1.4 (1.1-1.8); ALBUMIN 4.6 g/dL (3.0-4.8); ALT/SGPT 24 U/L (7-56); AST/SGOT 14 U/L (14-36); BLOOD UREA NITROGEN 33 mg/dL (7-21); CALCIUM 11.2 mg/dL (8.4-10.5); GFR AFRICAN-AMERICAN 52; GFR NON-AFRICAN AMERICAN 43
[2017-09-02 14:41] LABS: B-TYPE NATRIURETIC PEPTIDE 72.8 pg/mL (0-450); TROPONIN I < 0.01 ng/mL
[2017-09-02] MEDS ORDERED: Insulin Regular 1 UNITS/0.01 ML ML IV STA ×3 (14:42→17:19)
[2017-09-02 16:08] LABS: URINE BILIRUBIN NEGATIVE (NEGATIVE); URINE BLOOD NEGATIVE (NEGATIVE); URINE GLUCOSE (UA) >=1000 mg/dL (NEGATIVE); URINE LEUKOCYTE ESTERASE NEGATIVE Leu/uL (NEGATIVE); URINE PROTEIN NEGATIVE mg/dL (<30 mg/dL); URINE UROBILINOGEN 0.2 E.U./dL (<1 E.U./dL)
[2017-09-02 16:09] LABS: URINE APPEARANCE CLEAR (CLEAR); URINE COLOR COLORLESS (YELLOW)
[2017-09-02 16:23] LABS: BASO # 0.03 K/mm3 (0.0-2.0); BASO % 0.3 % (0.0-3.0); EOS % 0.4 % (1.5-5.0); GRAN # 5.97 (1.4-6.5); HEMOGLOBIN 11.1 g/dL (12.0-16.0); LYMPH # 2.7 (1.2-3.4); LYMPH % 29.5 % (22.0-35.0); MEAN CELL VOLUME 80.8 fl (80.0-105.0); MEAN CORPUSCULAR HEMOGLOBIN 27.3 pg (25.0-35.0); MEAN CORPUSCULAR HGB CONC 33.8 g/dl (31.0-37.0); MEAN PLATELET VOLUME 11.6 fl (7.0-11.0); MONO # 0.4 (0.1-0.6); MONO % 4.8 % (1.0-6.0); RBC 4.06 10^6/uL (3.5-6.1); RED CELL DISTRIBUTION WIDTH 13.5 % (11.5-14.5); WHITE BLOOD COUNT 9.2 10^3/ul (4.5-11.0)
[2017-09-02 17:06] LABS: ALB/GLOB RATIO 1.2 (1.1-1.8); ALBUMIN 3.4 g/dL (3.0-4.8); ALT/SGPT 23 U/L (7-56); AST/SGOT 11 U/L (14-36); BLOOD UREA NITROGEN 28 mg/dL (7-21); CALCIUM 9.3 mg/dL (8.4-10.5); GFR AFRICAN-AMERICAN > 60; GFR NON-AFRICAN AMERICAN 58
[2017-09-02] MEDS ORDERED: Sodium Chloride 0.9% 500 ML IV STA (17:19)
[2017-09-02 17:23] LABS: VENOUS BLOOD GAS PO2 30 mm/Hg (30-55)
[2017-09-02] MEDS ORDERED: Albuterol 0.083% Inhal Sol (2.5 mg/3 mL) UD IH PRN (20:05)
--- NOTE | 2017-09-02 21:15 | CP.PCM.HP ---
<Saeed Beard - Last Filed: 09/02/17 21:01> History of Present Illness - History of Present Illness History of Present Illness: Ms. Colvin is a 52 year old indonesian speaking female with a past medical history significant for IDDM2 with medication non-compliance, HTN, CAD, Anxiety/ Depression, COPD, and hypothyroidism who presents from her PMD's office with hyperglycemia and chest tightness for three days duration. Patient reports that she went to her PMD's office earlier this afternoon to have bloodwork drawn and was found to have a BS of over 500. She was sent to the [facility] [place] ED where she had an initial BS of 623. She reports that she hasn't been eating as much as she's used to over the course of the past week. She reports that earlier in the week she experienced nausea and a few episodes of non-bloody diarrhea, which have both since resolved, and this caused her to not have an appetite. She administered herself insulin despite this without obtaining a BS reading prior to administration due to anxiety regarding her BS readings. She also endorses a chest tightness that started three days OPERATIONS TECH. She reports that she has it at rest as well as with activity and that it can last anywhere from a few minutes to a few hours. She reports moderate relief with home tramadol. Patient reports that she had a cardiac cath done by Dr. Pacheco three months ago without any stents placed. Patient otherwise denies fever, chills, headache, sore throat, palpitations, syncope, LE edema, SOB, cough, abdominal pain, N/V/D/C, urinary symptoms, skin changes or any numbness/tingling/weakness of any extremity. PMH: IDDM2 with medication non-compliance, HTN, CAD, Anxiety/Depression, COPD, and hypothyroidism PSH: Cardiac Stent x1 three years ago, Appendectomy, Tonsillectomy, Left Ankle surgery Family: Denies Social: Denies tobacco, alcohol or illicit drug use; Lives at home with daughter ; Does not work. Allergies: Sulfa Home Medications: As per MAR PMD: Dr. Roy Present on Admission - Present on Admission Any Indicators Present on Admission: No Review of Systems - Review of Systems Review of Systems: As per HPI, otherwise negative Past Patient History - Infectious Disease Hx of Infectious Diseases: None - Tetanus Immunizations Tetanus Immunization: Unknown - Past Medical History & Family History Past Medical History?: Yes - Past Social History Smoking Status: Former Smoker - CARDIAC Hx Cardiac Disorders: Yes (CAD, mi) - PULMONARY Hx Respiratory Disorders: Yes Hx Chronic Obstructive Pulmonary Disease (COPD): Yes - NEUROLOGICAL Hx Neurological Disorder: No Hx Paralysis: No - HEENT Hx HEENT Problems: Yes (eyeglasses) - RENAL Hx Chronic Kidney Disease: No - ENDOCRINE/METABOLIC Hx Diabetes Mellitus Type 2: Yes Hx Hypothyroidism: Yes - HEMATOLOGICAL/ONCOLOGICAL Hx Blood Transfusions: No Hx Blood Transfusion Reaction: No - INTEGUMENTARY Hx Dermatological Problems: No - MUSCULOSKELETAL/RHEUMATOLOGICAL Hx Musculoskeletal Disorders: No - GASTROINTESTINAL Hx Gastrointestinal Disorders: No - GENITOURINARY/GYNECOLOGICAL Hx Genitourinary Disorders: No - PSYCHIATRIC Hx Emotional Abuse: No Hx Physical Abuse: No Hx Substance Use: No - SURGICAL HISTORY Hx Cardiac Catheterization: Yes (stent x1) Hx Coronary Stent: Yes Hx Hysterectomy: Yes (Tubal ligation) Hx Orthopedic Surgery: Yes - ANESTHESIA Hx Anesthesia: Yes Hx Anesthesia Reactions: No Hx Malignant Hyperthermia: No Meds Allergies/Adverse Reactions: Allergies Allergy/AdvReac Type Severity Reaction Status Date / Time Sulfa (Sulfonamide Allergy FATIGUE Verified 09/02/17 13:39 Antibiotics) Physical Exam - Constitutional Appears: Non-toxic, No Acute Distress - Head Exam Head Exam: ATRAUMATIC, NORMOCEPHALIC - Eye Exam Eye Exam: EOMI, Normal appearance Pupil Exam: NORMAL ACCOMODATION, PERRL - ENT Exam ENT Exam: Mucous Membranes Moist, Normal Exam - Neck Exam Neck exam: Positive for: Full Rom, Normal Inspection. Negative for: Lymphadenopathy - Respiratory Exam Respiratory Exam: Clear to Auscultation Bilateral, NORMAL BREATHING PATTERN. absent: Accessory Muscle Use, Chest Wall Tenderness, Decreased Breath Sounds, Prolonged Expiratory Phase, Rales, Rhonchi, Wheezes, Respiratory Distress, Stridor - Cardiovascular Exam Cardiovascular Exam: REGULAR RHYTHM, RRR, +S1, +S2. absent: Bradycardia, Tachycardia, Clicks, Diastolic murmur, Gallop, Irregular Rhythm, JVD, Rubs, +S4 , Systolic Murmur - GI/Abdominal Exam GI & Abdominal Exam: Normal Bowel Sounds, Soft. absent: Bruit, Diminished Bowel Sounds, Distended, Firm, Guarding, Hernia, Hyperactive Bowel Sounds, Hypoactive Bowel Sounds, Mass, Organomegaly, Pulsatile Mass, Rebound, Rigid, Tenderness - Extremities Exam Extremities exam: Positive for: full ROM, normal capillary refill, normal inspection, pedal pulses present. Negative for: calf tenderness, joint swelling , pedal edema, tenderness - Back Exam Back exam: FULL ROM, NORMAL INSPECTION. absent: CVA tenderness (L), CVA tenderness (R) - Neurological Exam Neurological exam: Alert, CN II-XII Intact, Normal Gait, Oriented x3, Reflexes Normal - Psychiatric Exam Psychiatric exam: Normal Affect, Normal Mood - Skin Skin Exam: Dry, Intact, Normal Color, Warm Results - Vital Signs Recent Vital Signs: Last Vital Signs Temp 98.3 F 09/02/17 13:40 Pulse 74 09/02/17 18:09 Resp 18 09/02/17 18:09 BP 151/82 H 09/02/17 18:09 Pulse Ox 100 09/02/17 18:09 - Labs Result Diagrams: 09/02/17 16:10 09/02/17 16:10 Labs: Laboratory Results - last 24 hr 09/02/17 19:27 POC Glucose (mg/dL) 306 H Assessment & Plan - Assessment and Plan (Free Text) Assessment: 52 year old indonesian speaking female with a past medical history significant for IDDM2 with medication non-compliance, HTN, CAD, Anxiety/Depression, COPD, and hypothyroidism who presents from her PMD's office with hyperglycemia and chest tightness for three days duration. Patient reports that she went to her PMD's office earlier this afternoon to have bloodwork drawn and was found to have a BS of over 500. She was sent to the [facility] [place] ED where she had an initial BS of 623. Plan: 1. Chest Tightness -Chest X-Ray showed no active disease -EKG showed NSR at 100bpm -Initial troponin negative with two Q6 serial troponins pending -Continue home tramadol -Cardiology consulted, all recommendations appreciated 2. Hyperglycemia -Received 24u insulin and 3L NS in ED with good response of BS, dropping from 623 to now 306 without anion gap -A1c done in PMD office today at 11.3 -SSI-High and Accuchecks ACHS -Levemir 20u BID -Continue home Gabapentin -Carbohydrate consistent diet -bailer tenders supervisor consulted, all recommendations appreciated 3. History of CAD s/p one PETR -Continue home ASA, Plavix, Lipitor and Lopressor 4. History of HTN -Continue home Lisinopril and Amlodipine 5. History of Anxiety/Depression -Continue home Elavil 6. History of COPD -Continue home Albuterol nebs 7. History of Hypothyroidism -Continue home Synthroid GI Prophylaxis: Pepcid DVT Prophylaxis: SCD's Patient seen and case discussed with attending, Dr. Santos. - Date & Time Date: 09/02/17 Time: 21:15 <Mao Santos - Last Filed: 09/02/17 22:16> Results - Vital Signs Recent Vital Signs: Last Vital Signs Temp 98.3 F 09/02/17 13:40 Pulse 74 09/02/17 18:09 Resp 18 09/02/17 18:09 BP 151/82 H 09/02/17 18:09 Pulse Ox 100 09/02/17 18:09 - Labs Result Diagrams: 09/02/17 16:10 09/02/17 16:10 Labs: Laboratory Results - last 24 hr 09/02/17 19:27 POC Glucose (mg/dL) 306 H Attending/Attestation - Attestation I have personally seen and examined this patient.: Yes I have fully participated in the care of the patient.: Yes I have reviewed all pertinent clinical information: Yes Notes (Text): 09/02/17 22:10 52 year old female with past medical history of diabetes, hypertension, CAD and hypothyroidism who presents with uncontrolled diabetes and chest pain. Will obtain serial cardiac enzymes to rule out ACS. Cardiology evaluation is requested. Resume home cardiac medications including aspirin, plavix and statin. Continue with levemir and insulin ss for diabetes. Patient was counselled on medication and diet compliance. Mao Santos MD Hospitalist.
[2017-09-02] MEDS ORDERED: Magnesium Sulfate 2 GM in Sodium Chloride 0.9% 100 ML IVPB ONE (21:19)
[2017-09-02] MEDS: Insulin Reg-HIGH-Coverage SC SCH (23:41)
[2017-09-03] MEDS ORDERED: Lidocaine 1% Inj (20ml) ONE (04:21)
[2017-09-03 06:55] LABS: BASO # 0.02 K/mm3 (0.0-2.0); BASO % 0.3 % (0.0-3.0); EOS # 0.1 (0.0-0.7); EOS % 0.7 % (1.5-5.0); GRAN # 3.85 (1.4-6.5); HEMOGLOBIN 10.8 g/dL (12.0-16.0); LYMPH # 2.7 (1.2-3.4); LYMPH % 38.4 % (22.0-35.0); MEAN CORPUSCULAR HEMOGLOBIN 26.2 pg (25.0-35.0); MEAN PLATELET VOLUME 11.2 fl (7.0-11.0); MONO # 0.5 (0.1-0.6); MONO % 6.6 % (1.0-6.0); RBC 4.12 10^6/uL (3.5-6.1); RED CELL DISTRIBUTION WIDTH 13.7 % (11.5-14.5); WHITE BLOOD COUNT 7.1 10^3/ul (4.5-11.0)
[2017-09-03 07:28] LABS: ALB/GLOB RATIO 1.3 (1.1-1.8); ALBUMIN 3.6 g/dL (3.0-4.8); ALT/SGPT 26 U/L (7-56); AST/SGOT 13 U/L (14-36); BLOOD UREA NITROGEN 21 mg/dL (7-21); CALCIUM 9.3 mg/dL (8.4-10.5); GFR AFRICAN-AMERICAN > 60; GFR NON-AFRICAN AMERICAN 58
[2017-09-03] MEDS ORDERED: Levothyroxine 100 MCG TAB PO SCH (07:30)
[2017-09-03] MEDS: Insulin Reg-HIGH-Coverage SC SCH (08:48)
[2017-09-03] MEDS ORDERED: Insulin Detemir 100 units/ml Vial (Levemir) SC SCH (10:00)
--- NOTE | 2017-09-03 10:36 | CARD ---
APPROVED REPORT EKG Measurement Heart [id number] <Conclusion> Normal sinus rhythm QS in V1, possible septal ID, old No change
[2017-09-03] MEDS: Insulin Detemir 100 units/ml Vial (Levemir) SC SCH ×2 (10:41→17:14)
[2017-09-03] MEDS ORDERED: Insulin Lispro 1 UNITS/0.01 ML SC SCH (11:30)
[2017-09-03] MEDS ORDERED: Insulin Lispro (humaLOG) MEDIUM Coverage SC SCH ×2 (11:30→18:00)
[2017-09-03 12:17] VITALS: O2SAT 100
--- NOTE | 2017-09-03 12:33 | CP.PCM.PN ---
<Demian James - Last Filed: 09/03/17 14:03> Subjective - Date & Time of Evaluation Date of Evaluation: 09/03/17 Time of Evaluation: 06:00 - Subjective Subjective: Demian James DO, PGY-1: Hospitalist Service Patient seen and examined at bedside. Patient denies any chest pain, dyspnea, or palpitations. She reports feeling weak, but does not endorses any new complaints. Nurse reports no events overnight. Objective - Vital Signs/Intake and Output Vital Signs (last 24 hours): Temp Pulse Resp BP Pulse Ox 98.5 F 99 H 20 113/74 100 09/03/17 05:25 09/03/17 10:58 09/03/17 05:25 09/03/17 10:58 09/03/17 10:00 Intake and Output: 09/03/17 09/03/17 06:59 18:59 Intake Total 0 Output Total 1 Balance -1 - Medications Medications: Current Medications Acetaminophen (Tylenol 325mg Tab) 650 mg PO Q6H PRN PRN Reason: Headache Albuterol Sulfate (Albuterol 0.083% Inhal Deena (2.5 Mg/3 Ml) Ud) 2.5 mg IH [id number] PRN PRN Reason: Shortness of Breath Amitriptyline HCl (Elavil) 50 mg PO [facility] Last Admin: 09/02/17 23:43 Dose: 50 mg Amlodipine Besylate (Norvasc) 10 mg PO DAILY [facility] Last Admin: 09/03/17 10:39 Dose: Not Given Aspirin (Ecotrin) 81 mg PO DAILY [facility] Last Admin: 09/03/17 10:38 Dose: 81 mg Atorvastatin Calcium (Lipitor) 40 mg PO DAILY [facility] Last Admin: 09/03/17 10:39 Dose: 40 mg Clopidogrel Bisulfate (Plavix) 75 mg PO DAILY [facility] Last Admin: 09/03/17 10:39 Dose: 75 mg Famotidine (Pepcid) 20 mg PO DAILY [facility] Last Admin: 09/03/17 10:39 Dose: 20 mg Gabapentin (Neurontin) 600 mg PO [facility] PRN Reason: Protocol Last Admin: 09/02/17 23:37 Dose: 600 mg Insulin Detemir (Levemir) 25 unit SC BID [facility] Last Admin: 09/03/17 10:41 Dose: 25 unit Insulin Human Lispro (Humalog) 15 units SC AC [facility] Insulin Human Lispro (Humalog Med) 0 units SC ACHS [facility] PRN Reason: Protocol Levothyroxine Sodium (Synthroid) 100 mcg PO ACB [facility] Last Admin: 09/03/17 08:48 Dose: 100 mcg Lisinopril (Zestril) 5 mg PO DAILY [facility] Last Admin: 09/03/17 10:41 Dose: Not Given Meclizine HCl (Antivert) 25 mg PO DAILY [facility] Last Admin: 09/03/17 10:39 Dose: 25 mg Metoprolol Tartrate (Lopressor) 50 mg PO BID [facility] Last Admin: 09/03/17 10:58 Dose: 50 mg Tramadol HCl (Ultram) 50 mg PO Q6H PRN PRN Reason: Pain, moderate (4-7) - Labs Labs: 09/03/17 06:30 09/03/17 06:30 - Constitutional Appears: Non-toxic, Older Than Stated Age - Head Exam Head Exam: ATRAUMATIC, NORMOCEPHALIC - Eye Exam Eye Exam: EOMI, Normal appearance - ENT Exam ENT Exam: Mucous Membranes Moist, Normal Oropharynx - Neck Exam Neck Exam: Normal Inspection - Respiratory Exam Respiratory Exam: Clear to Ausculation Bilateral, NORMAL BREATHING PATTERN. absent: Accessory Muscle Use - Cardiovascular Exam Cardiovascular Exam: RRR, +S1, +S2 - GI/Abdominal Exam GI & Abdominal Exam: Soft, Normal Bowel Sounds - Extremities Exam Extremities Exam: Normal Inspection - Back Exam Back Exam: NORMAL INSPECTION. absent: CVA tenderness (L), CVA tenderness (R) - Neurological Exam Neurological Exam: Alert, Awake, Oriented x3 - Psychiatric Exam Psychiatric exam: Normal Affect, Normal Mood - Skin Skin Exam: Dry, Intact, Normal Color, Warm Assessment and Plan - Assessment and Plan (Free Text) Assessment: 52 year old serbian speaking female with a past medical history significant for IDDM2 with medication non-compliance, HTN, CAD, Anxiety/Depression, COPD, and hypothyroidism who presents from her PMD's office with hyperglycemia and chest tightness for three days duration. Patient reports that she went to her PMD's office earlier this afternoon to have bloodwork drawn and was found to have a BS of over 500. She was sent to the [facility] [place] ED where she had an initial BS of 623. Plan: 1. Chest Tightness -Chest X-Ray showed no active disease -EKG showed no ST-T wave abnormalities concerning for ischemia - Troponin x 3 negative - Cardiology consulted, all recommendations appreciated 2. Hyperglycemia -Received 24u insulin and 3L NS in ED with good response of BS, dropping from 623 to now 306 without anion gap -A1c done in PMD office today at 11.3 -SSI-High and Accuchecks ACHS -Levemir 25U BID -Continue home Gabapentin -Carbohydrate consistent diet -clinical nurse educator consulted, all recommendations appreciated 3. History of CAD s/p one PETR -Continue home ASA, Plavix, Lipitor and Lopressor 4. History of HTN -Continue home Lisinopril and Amlodipine 5. History of Anxiety/Depression -Continue home Elavil 6. History of COPD -Continue home Albuterol nebs 7. History of Hypothyroidism -Continue home Synthroid GI Prophylaxis: Pepcid DVT Prophylaxis: SCD's Patient seen and case discussed with attending, Dr. Santos. <Mao Santos - Last Filed: 09/03/17 15:29> Objective - Vital Signs/Intake and Output Vital Signs (last 24 hours): Temp Pulse Resp BP Pulse Ox 98.5 F 99 H 20 113/74 100 09/03/17 05:25 09/03/17 10:58 09/03/17 05:25 09/03/17 10:58 09/03/17 10:00 Intake and Output: 09/03/17 09/03/17 06:59 18:59 Intake Total 0 Output Total 1 Balance -1 - Medications Medications: Current Medications Acetaminophen (Tylenol 325mg Tab) 650 mg PO Q6H PRN PRN Reason: Headache Albuterol Sulfate (Albuterol 0.083% Inhal Deena (2.5 Mg/3 Ml) Ud) 2.5 mg IH [id number] PRN PRN Reason: Shortness of Breath Amitriptyline HCl (Elavil) 50 mg PO HS [facility] Last Admin: 09/02/17 23:43 Dose: 50 mg Amlodipine Besylate (Norvasc) 10 mg PO DAILY [facility] Last Admin: 09/03/17 10:39 Dose: Not Given Aspirin (Ecotrin) 81 mg PO DAILY [facility] Last Admin: 09/03/17 10:38 Dose: 81 mg Atorvastatin Calcium (Lipitor) 40 mg PO DAILY [facility] Last Admin: 09/03/17 10:39 Dose: 40 mg Clopidogrel Bisulfate (Plavix) 75 mg PO DAILY [facility] Last Admin: 09/03/17 10:39 Dose: 75 mg Famotidine (Pepcid) 20 mg PO DAILY [facility] Last Admin: 09/03/17 10:39 Dose: 20 mg Gabapentin (Neurontin) 600 mg PO [facility] PRN Reason: Protocol Last Admin: 09/02/17 23:37 Dose: 600 mg Insulin Detemir (Levemir) 25 unit SC BID [facility] Last Admin: 09/03/17 10:41 Dose: 25 unit Insulin Human Lispro (Humalog) 15 units SC AC [facility] Last Admin: 09/03/17 12:57 Dose: 15 units Insulin Human Lispro (Humalog Med) 0 units SC [facility] PRN Reason: Protocol Levothyroxine Sodium (Synthroid) 100 mcg PO ACB [facility] Last Admin: 09/03/17 08:48 Dose: 100 mcg Lisinopril (Zestril) 5 mg PO DAILY [facility] Last Admin: 09/03/17 10:41 Dose: Not Given Meclizine HCl (Antivert) 25 mg PO DAILY [facility] Last Admin: 09/03/17 10:39 Dose: 25 mg Metoprolol Tartrate (Lopressor) 50 mg PO BID [facility] Last Admin: 09/03/17 10:58 Dose: 50 mg Tramadol HCl (Ultram) 50 mg PO Q6H PRN PRN Reason: Pain, moderate (4-7) - Labs Labs: 09/03/17 06:30 09/03/17 06:30 Attending/Attestation - Attestation I have personally seen and examined this patient.: Yes I have fully participated in the care of the patient.: Yes I have reviewed all pertinent clinical information, including history, physical exam and plan: Yes Notes (Text): 09/03/17 15:26 52 year old female with past medical history of diabetes, hypertension, CAD and hypothyroidism who presented with uncontrolled diabetes and chest pain. Serial cardiac enzymes were negative and ACS has been ruled out. Chest pain has improved. She is pending cardiology evaluation. Continue with aspirin, plavix, statin, lisinopril and metoprolol. Her fingersticks have improved although still elevated. She is on levemir bid and novolog ac. Diabetic education was provided. She was counselled on medication and diet compliance. Will continue to monitor her fingersticks closely and adjust her medications accordingly. Mao Santos MD Hospitalist.
[2017-09-03] MEDS: Insulin Lispro 1 UNITS/0.01 ML SC SCH ×2 (12:57→17:12)
[2017-09-03 13:17] LABS: TROPONIN I < 0.01 ng/mL
--- NOTE | 2017-09-03 16:45 | CP.PCM.DIS ---
<Demian James - Last Filed: 09/04/17 14:59> Provider - Provider Date of Admission: 09/02/17 17:25 Attending physician: Mao Santos MD Primary care physician: Christina Roy DO Consults: Dr. Lou Time Spent in preparation of Discharge (in minutes): 35 Hospital Course - Lab Results Lab Results: Most Recent Lab Values WBC 7.1 10^3/ul (4.5-11.0) D 09/03/17 06:30 RBC 4.12 10^6/uL (3.5-6.1) 09/03/17 06:30 Hgb 10.8 g/dL (12.0-16.0) L 09/03/17 06:30 Hct 33.8 % (36.0-48.0) L 09/03/17 06:30 MCV 82.0 fl (80.0-105.0) 09/03/17 06:30 MCH 26.2 pg (25.0-35.0) 09/03/17 06:30 MCHC 32.0 g/dl (31.0-37.0) 09/03/17 06:30 RDW 13.7 % (11.5-14.5) 09/03/17 06:30 Plt Count 160 10^3/uL (120.0-450.0) 09/03/17 06:30 MPV 11.2 fl (7.0-11.0) H 09/03/17 06:30 Gran % 54.0 % (50.0-68.0) 09/03/17 06:30 Lymph % (Auto) 38.4 % (22.0-35.0) H 09/03/17 06:30 [place] % (Auto) 6.6 % (1.0-6.0) H 09/03/17 06:30 Eos % (Auto) 0.7 % (1.5-5.0) L 09/03/17 06:30 Baso % (Auto) 0.3 % (0.0-3.0) 09/03/17 06:30 Gran # 3.85 (1.4-6.5) 09/03/17 06:30 Lymph # (Auto) 2.7 (1.2-3.4) 09/03/17 06:30 [place] # (Auto) 0.5 (0.1-0.6) 09/03/17 06:30 Eos # (Auto) 0.1 (0.0-0.7) 09/03/17 06:30 Baso # (Auto) 0.02 K/mm3 (0.0-2.0) 09/03/17 06:30 pO2 30 mm/Hg (30-55) 09/02/17 17:10 VBG pH 7.30 (7.32-7.43) L 09/02/17 17:10 VBG pCO2 46.0 (40-60) 09/02/17 17:10 VBG HCO3 22.6 mmol/l (21-28) 09/02/17 17:10 VBG Total CO2 24.0 mmol.L (22-28) 09/02/17 17:10 VBG O2 Sat (Calc) 61.0 % (40-65) 09/02/17 17:10 VBG Base Excess -4.0 mmol/L (0.0-2.0) L 09/02/17 17:10 VBG Potassium 4.6 mmol/L (3.6-5.2) 09/02/17 17:10 Sodium 134.0 mmol/L (132-148) 09/02/17 17:10 Chloride 105.0 mmol/L (98-107) 09/02/17 17:10 Glucose 409 mg/dl (65-105) H* D 09/02/17 17:10 Lactate 1.3 mmol/L (0.7-2.1) 09/02/17 17:10 FiO2 21.0 % 09/02/17 17:10 Sodium 137 mmol/L (132-148) 09/03/17 06:30 Potassium 4.4 mmol/L (3.6-5.0) 09/03/17 06:30 Chloride 105 mmol/L (98-107) 09/03/17 06:30 Carbon Dioxide 23 mmol/L (21-33) 09/03/17 06:30 Anion Gap 13 (10-20) 09/03/17 06:30 BUN 21 mg/dL (7-21) 09/03/17 06:30 Creatinine 1.0 mg/dl (0.7-1.2) 09/03/17 06:30 Est GFR ( Amer) > 60 09/03/17 06:30 Est GFR (Non-Af Amer) 58 09/03/17 06:30 POC Glucose (mg/dL) 385 mg/dL (65-110) H 09/03/17 11:11 Random Glucose 364 mg/dL (70-110) H* 09/03/17 06:30 Calcium 9.3 mg/dL (8.4-10.5) 09/03/17 06:30 Phosphorus 5.2 mg/dL (2.5-4.5) H 09/02/17 14:00 Magnesium 1.6 mg/dL (1.7-2.2) L 09/02/17 14:00 Total Bilirubin 0.4 mg/dL (0.2-1.3) 09/03/17 06:30 AST 13 U/L (14-36) L 09/03/17 06:30 ALT 26 U/L (7-56) 09/03/17 06:30 Alkaline Phosphatase 70 U/L (38-126) 09/03/17 06:30 Lactate Dehydrogenase 301 U/L (333-699) L 09/03/17 12:45 Total Creatine Kinase 31 U/L (35-230) L 09/03/17 12:45 Troponin I < 0.01 ng/mL 09/03/17 12:45 NT-Pro-B Natriuret Pep 72.8 pg/mL (0-450) 09/02/17 14:00 Total Protein 6.3 g/dL (5.8-8.3) 09/03/17 06:30 Albumin 3.6 g/dL (3.0-4.8) 09/03/17 06:30 Globulin 2.8 gm/dL 09/03/17 06:30 Albumin/Globulin Ratio 1.3 (1.1-1.8) 09/03/17 06:30 Venous Blood Potassium 4.6 mmol/L (3.6-5.2) 09/02/17 17:10 Urine Color Colorless (YELLOW) 09/02/17 15:55 Urine Appearance Clear (CLEAR) 09/02/17 15:55 Urine pH 6.0 (4.7-8.0) 09/02/17 15:55 Ur Specific [place] 1.010 (1.005-1.035) 09/02/17 15:55 Urine Protein Negative mg/dL (<30 mg/dL) 09/02/17 15:55 Urine Glucose (UA) >=1000 mg/dL (NEGATIVE) 09/02/17 15:55 Urine Ketones Negative mg/dL (NEGATIVE) 09/02/17 15:55 Urine Blood Negative (NEGATIVE) 09/02/17 15:55 Urine Nitrate Negative (NEGATIVE) 09/02/17 15:55 Urine Bilirubin Negative (NEGATIVE) 09/02/17 15:55 Urine Urobilinogen 0.2 E.U./dL (<1 E.U./dL) 09/02/17 15:55 Ur Leukocyte Esterase Negative Michael/uL (NEGATIVE) 09/02/17 15:55 - Hospital Course Hospital Course: 52 year old female with past medical history of diabetes, hypertension, non- obstructive CAD, and hypothyroidism who presented with complaints of 1 week of generalized fatigue and decreased appetite. On admission, the patient was found to have a blood glucose level of 603 with no anion gap nor ketones in the Urine. The patient was also worked up for ACS and had serial troponins negative. The patient's was monitored overnight and her blood glucose were corrected with intermittent insulin. Diabetic education was provided and the patient was counselled on medication and diet compliance. The patient was discharged with a refill on the medications listed below and strict follow up instructions. - Date & Time of H&P Date of H&P: 09/03/17 Time of H&P: 16:41 Discharge Exam - Head Exam Head Exam: ATRAUMATIC, NORMOCEPHALIC - Eye Exam Eye Exam: EOMI, Normal appearance - ENT Exam ENT Exam: Mucous Membranes Moist, Normal Oropharynx - Neck Exam Neck exam: Normal Inspection - Respiratory Exam Respiratory Exam: Clear to PA & Lateral, NORMAL BREATHING PATTERN - Cardiovascular Exam Cardiovascular Exam: RRR, +S1, +S2 - GI/Abdominal Exam GI & Abdominal Exam: Normal Bowel Sounds, Unremarkable - Extremities Exam Extremities exam: normal inspection - Neurological Exam Neurological exam: Alert, CN II-XII Intact, Oriented x3 - Psychiatric Exam Psychiatric exam: Normal Affect, Normal Mood - Skin Skin Exam: Dry, Intact, Normal Color, Warm Discharge Plan - Discharge Medications Prescriptions: Atorvastatin [Lipitor] 40 mg PO DAILY #30 tab Insulin Lispro [humALOG] 15 units SC ACTID #450 ml Levothyroxine [Synthroid] 100 mcg PO ACB #30 tab Lisinopril [Zestril] 5 mg PO DAILY #30 tab - Follow Up Plan Condition: FAIR Disposition: HOME/ ROUTINE Instructions: Chest Pain (DC), Chest Pain (GEN) Additional Instructions: 1) Patient to follow up with PMD within one week. 2) Patient to take any medications as prescribed/directed, unless otherwise indicated. 3) Patient to return to the ED for any worsening of symptoms. Referrals: Christina Roy DO [Primary Care Provider] - <Mao Santos - Last Filed: 09/04/17 16:04> Provider - Provider Date of Admission: 09/02/17 17:25 Attending physician: Mao Santos MD Primary care physician: Christina Roy [facility] Course - Lab Results Lab Results: Most Recent Lab Values WBC 7.1 10^3/ul (4.5-11.0) D 09/03/17 06:30 RBC 4.12 10^6/uL (3.5-6.1) 09/03/17 06:30 Hgb 10.8 g/dL (12.0-16.0) L 09/03/17 06:30 Hct 33.8 % (36.0-48.0) L 09/03/17 06:30 MCV 82.0 fl (80.0-105.0) 09/03/17 06:30 MCH 26.2 pg (25.0-35.0) 09/03/17 06:30 MCHC 32.0 g/dl (31.0-37.0) 09/03/17 06:30 RDW 13.7 % (11.5-14.5) 09/03/17 06:30 Plt Count 160 10^3/uL (120.0-450.0) 09/03/17 06:30 MPV 11.2 fl (7.0-11.0) H 09/03/17 06:30 Gran % 54.0 % (50.0-68.0) 09/03/17 06:30 Lymph % (Auto) 38.4 % (22.0-35.0) H 09/03/17 06:30 [place] % (Auto) 6.6 % (1.0-6.0) H 09/03/17 06:30 Eos % (Auto) 0.7 % (1.5-5.0) L 09/03/17 06:30 Baso % (Auto) 0.3 % (0.0-3.0) 09/03/17 06:30 Gran # 3.85 (1.4-6.5) 09/03/17 06:30 Lymph # (Auto) 2.7 (1.2-3.4) 09/03/17 06:30 [place] # (Auto) 0.5 (0.1-0.6) 09/03/17 06:30 Eos # (Auto) 0.1 (0.0-0.7) 09/03/17 06:30 Baso # (Auto) 0.02 K/mm3 (0.0-2.0) 09/03/17 06:30 pO2 30 mm/Hg (30-55) 09/02/17 17:10 VBG pH 7.30 (7.32-7.43) L 09/02/17 17:10 VBG pCO2 46.0 (40-60) 09/02/17 17:10 VBG HCO3 22.6 mmol/l (21-28) 09/02/17 17:10 VBG Total CO2 24.0 mmol.L (22-28) 09/02/17 17:10 VBG O2 Sat (Calc) 61.0 % (40-65) 09/02/17 17:10 VBG Base Excess -4.0 mmol/L (0.0-2.0) L 09/02/17 17:10 VBG Potassium 4.6 mmol/L (3.6-5.2) 09/02/17 17:10 Sodium 134.0 mmol/L (132-148) 09/02/17 17:10 Chloride 105.0 mmol/L (98-107) 09/02/17 17:10 Glucose 409 mg/dl (65-105) H* D 09/02/17 17:10 Lactate 1.3 mmol/L (0.7-2.1) 09/02/17 17:10 FiO2 21.0 % 09/02/17 17:10 Sodium 137 mmol/L (132-148) 09/03/17 06:30 Potassium 4.4 mmol/L (3.6-5.0) 09/03/17 06:30 Chloride 105 mmol/L (98-107) 09/03/17 06:30 Carbon Dioxide 23 mmol/L (21-33) 09/03/17 06:30 Anion Gap 13 (10-20) 09/03/17 06:30 BUN 21 mg/dL (7-21) 09/03/17 06:30 Creatinine 1.0 mg/dl (0.7-1.2) 09/03/17 06:30 Est GFR ( Amer) > 60 09/03/17 06:30 Est GFR (Non-Af Amer) 58 09/03/17 06:30 POC Glucose (mg/dL) 237 mg/dL (65-110) H 09/03/17 16:16 Random Glucose 364 mg/dL (70-110) H* 09/03/17 06:30 Calcium 9.3 mg/dL (8.4-10.5) 09/03/17 06:30 Phosphorus 5.2 mg/dL (2.5-4.5) H 09/02/17 14:00 Magnesium 1.6 mg/dL (1.7-2.2) L 09/02/17 14:00 Total Bilirubin 0.4 mg/dL (0.2-1.3) 09/03/17 06:30 AST 13 U/L (14-36) L 09/03/17 06:30 ALT 26 U/L (7-56) 09/03/17 06:30 Alkaline Phosphatase 70 U/L (38-126) 09/03/17 06:30 Lactate Dehydrogenase 301 U/L (333-699) L 09/03/17 12:45 Total Creatine Kinase 31 U/L (35-230) L 09/03/17 12:45 Troponin I < 0.01 ng/mL 09/03/17 12:45 NT-Pro-B Natriuret Pep 72.8 pg/mL (0-450) 09/02/17 14:00 Total Protein 6.3 g/dL (5.8-8.3) 09/03/17 06:30 Albumin 3.6 g/dL (3.0-4.8) 09/03/17 06:30 Globulin 2.8 gm/dL 09/03/17 06:30 Albumin/Globulin Ratio 1.3 (1.1-1.8) 09/03/17 06:30 Venous Blood Potassium 4.6 mmol/L (3.6-5.2) 09/02/17 17:10 Urine Color Colorless (YELLOW) 09/02/17 15:55 Urine Appearance Clear (CLEAR) 09/02/17 15:55 Urine pH 6.0 (4.7-8.0) 09/02/17 15:55 Ur Specific [place] 1.010 (1.005-1.035) 09/02/17 15:55 Urine Protein Negative mg/dL (<30 mg/dL) 09/02/17 15:55 Urine Glucose (UA) >=1000 mg/dL (NEGATIVE) 09/02/17 15:55 Urine Ketones Negative mg/dL (NEGATIVE) 09/02/17 15:55 Urine Blood Negative (NEGATIVE) 09/02/17 15:55 Urine Nitrate Negative (NEGATIVE) 09/02/17 15:55 Urine Bilirubin Negative (NEGATIVE) 09/02/17 15:55 Urine Urobilinogen 0.2 E.U./dL (<1 E.U./dL) 09/02/17 15:55 Ur Leukocyte Esterase Negative Michael/uL (NEGATIVE) 09/02/17 15:55 Attending/Attestation - Attestation I have personally seen and examined this patient.: Yes I have fully participated in the care of the patient.: Yes I have reviewed all pertinent clinical information, including history, physical exam and plan: Yes Notes (Text): 09/03/17 52 year old female with past medical history of diabetes, hypertension, CAD and hypothyroidism who presented with uncontrolled diabetes and chest pain. Serial cardiac enzymes were negative and ACS has been ruled out. Chest pain has improved. She was seen by cardiology who recommended to continue with home medications. She is on aspirin, plavix, statin, lisinopril and metoprolol. She was on levemir and novolog for diabetes. Her fingersticks began to improve. She was seen by informatics educator and was counselled on medication and diet compliance. Patient is discharged home to follow up with pmd. Follow up with cardiology. Monitor fingersticks at home. Counselled on medication and diet compliance. Mao Santos MD Hospitalist.
[2017-09-03 17:25] VITALS: BP 110/76
[2017-09-03 17:35] VITALS: RESP 16; TEMP 98.8
[2017-09-03 18:57] VITALS: PULSE 106
--- NOTE | 2017-09-04 02:46 | CON ---
DATE: 09/03/2017 LOCATION: Patient in room 268, bed 1. REASON FOR CONSULTATION: Chest pain, coronary artery disease, uncontrolled diabetes mellitus, hypertension, asthma. HISTORY OF PRESENT ILLNESS: Patient is a 52-year-old female who is known to have COPD, diabetes, hypertension, hyperlipidemia, gastroesophageal reflux disease, coronary artery disease, status post PTCA of LAD in 06/2014, admitted to the hospital with elevated blood sugar due to which patient was tired and dizzy. Patient also complained of sharp chest pain, stabbing type, but she had local tenderness at the site of the pain. When she had a prior stent insertion about 4 years ago, at that time her pain was tightness in the chest and radiated into the left arm. She says this pain is entirely different than that pain. PAST MEDICAL HISTORY: As mentioned before, patient had diabetes and hypertension since the last 15 years, asthma since the last 6 years, coronary artery disease, history of stent insertion. PERSONAL HISTORY: Stopped smoking 22 years ago. Denies drinking. ALLERGIES: PATIENT IS ALLERGIC TO SULFA DRUGS. PAST SURGICAL HISTORY: Appendectomy and tonsillectomy. PATIENT'S PREVIOUS CARDIAC WORKUP: Patient had echo on 11/03/2015, which showed normal LV size, normal LV contractility with an ejection fraction of 54%, transmitral Doppler flow pattern, grade I abnormal relaxation pattern. Patient had a stress test on 04/14/2017, which showed ischemia with a normal ejection fraction of 63%. Following that, patient had cardiac catheterization on 05/03/2017, which showed a patent stent in the LAD; distal LAD was very diffusely diseased like a thread. Patient had a small circ. D1 was a large-sized vessel. It was larger than the LAD. Patient also has a superdominant RCA with mild disease. LV ejection fraction 60%, EDP of 14 mmHg. Patient had a PDA stent in LAD on 07/06/2014, history of diabetes, hypertension, hyperlipidemia, gastroesophageal reflux disease, hypothyroidism, anxiety, depression. REVIEW OF SYSTEMS: All the systems reviewed; positives mentioned in the history, others were negative. PHYSICAL EXAMINATION: VITAL SIGNS: Blood pressure 110/76, respirations 16, pulse 82, patient is afebrile. HEENT: Head is normocephalic. Eyes: Pupils normal. Conjunctivae slightly pale. NECK: JVP low. Carotid equal. THORAX: AP diameter normal. Patient had tenderness at the site of sharp chest pain. LUNGS: Clear. CARDIOVASCULAR: S1 and S2. ABDOMEN: Soft, no tenderness. No organomegaly. Bowel sounds normal. EXTREMITIES: No clubbing. No cyanosis. LABORATORY DATA: WBC 7.1, hemoglobin 10.8, hematocrit 33.8, platelets 160. Sodium 137, potassium 4.4. Admission sugar 364, today's sugar 237. BUN 21, creatinine 1.0. AST, ALT normal. Troponin less than 0.01 x2. Total protein and albumin are normal. DIAGNOSTIC DATA: EKG showed regular sinus rhythm. Normal EKG. Chest x-ray, no active disease. DIAGNOSES: Chest pain is musculoskeletal. Patient had a history of coronary artery disease, history of stent insertion in the past as mentioned above, previous cardiac workup has been mentioned above, hypertension, diabetes, asthma, hyperlipidemia, anxiety, depression. PLAN: This chest pain is musculoskeletal type, so treat symptomatically. We will continue present therapy and we will follow with you. Rhett Pacheco MD
--- NOTE | 2017-09-04 09:52 | CARD ---
APPROVED REPORT EKG Measurement Heart [id number] <Conclusion> Normal sinus rhythm V 6 obscured Probably normal ECG
== END 2017-09-03 18:59 | disposition home or self-care (01) ==
LOC: ED 13:27 → ERH 17:25 → 2RNO 23:36
PROVIDERS: ADMIT Internal Medicine; ATTEND Internal Medicine
DX: E11.65 Type 2 diabetes mellitus with hyperglycemia (principal); R07.9 Chest pain, unspecified; I25.10 Atherosclerotic heart disease of native coronary artery without angina pectoris; E87.2 Acidosis; J44.9 Chronic obstructive pulmonary disease, unspecified; I10 Essential (primary) hypertension; F41.9 Anxiety disorder, unspecified; E03.9 Hypothyroidism, unspecified; F32.9 Major depressive disorder, single episode, unspecified; K21.9 Gastro-esophageal reflux disease without esophagitis; E78.5 Hyperlipidemia, unspecified; Z91.14 Patient's other noncompliance with medication regimen; Z95.5 Presence of coronary angioplasty implant and graft; Z79.4 Long term (current) use of insulin; Z87.891 Personal history of nicotine dependence; Z88.2 Allergy status to sulfonamides
CPT/HCPCS: 36415; 71045; 80053; 81003; 82550; 82803; 82948; 83615; 83735; 83880; 84100; 84484; 85025; 87040; 87086; 93005; 96374; 96375; 99285; G0378; J3475; J7040

== ENCOUNTER 2018-03-17 14:41 | Emergency (ER) | payer MEDICAID ==
--- NOTE | 2018-03-17 14:58 | ED PDOC ---
Arrival/HPI - History of Present Illness Narrative History of Present Illness (Text): 03/17/18 18:23 53 y/o female with PMH of IN, HTN, DM Type 2, Hypothyroidism, chronic back pain, COPD, GERD, and gastric ulcers who presents to the ED c/o abdominal pain x 7 days. Pain is 10/10, diffuse, constant, sharp and burning. Pt has been unable to eat much secondary to pain. She has associated nausea and reflux worse when she lies flat. She visited the GI doctor yesterday but was denied endoscopy until she receives cardiac clearance from her help desk assistant. She takes Zantac as needed and has previously been on omeprazole which she stopped last week. Also complaining of dysuria. Denies fever, chills, SOB, chest pain, palpitations, syncope, diaphoresis, diarrhea, vomiting, hematochezia, fatigue, rash, hematuria, vaginal bleeding or discharge. <Dayan Smith - Last Filed: 03/17/18 22:21> <Rome Chapa - Last Filed: 03/21/18 13:40> - General Time Seen by Provider: 03/17/18 14:44 Past Medical History - Provider Review Nursing Documentation Reviewed: Yes - Past History Past History: No Previous - Infectious Disease Hx of Infectious Diseases: None - Tetanus Immunization Tetanus Immunization: Unknown - Cardiac Hx Cardiac Disorders: Yes (CAD, mi) Hx Hypertension: Yes - Pulmonary Hx Respiratory Disorders: Yes Hx Asthma: Yes Hx Chronic Obstructive Pulmonary Disease (COPD): Yes - Neurological Hx Neurological Disorder: Yes Hx Dizziness: Yes - HEENT Hx HEENT Disorder: Yes (eyeglasses) - Renal Hx Renal Disorder: No (denies) - Endocrine/Metabolic Hx Endocrine Disorders: Yes Hx Diabetes Mellitus Type 1: Yes Hx Diabetes Mellitus Type 2: Yes Hx Hyperthyroidism: Yes - Hematological/Oncological Hx Blood Disorders: Yes Hx Anemia: Yes - Integumentary Hx Dermatological Disorder: No (denies) - Musculoskeletal/Rheumatological Hx Musculoskeletal Disorders: No (denies) - Gastrointestinal Hx Gastrointestinal Disorders: Yes Hx Gastroesophageal Reflux: Yes - Genitourinary/Gynecological Hx Genitourinary Disorders: No - Psychiatric Hx Psychophysiologic Disorder: Yes Hx Depression: Yes Hx Substance Use: No - Surgical History Hx Appendectomy: Yes Hx Cardiac Catheterization: Yes Hx Coronary Stent: Yes (x1) Hx Hysterectomy: (Tubal ligation) Hx Orthopedic Surgery: Yes (left foot) - Anesthesia Hx Anesthesia: Yes Hx Anesthesia Reactions: No Hx Malignant Hyperthermia: No - Suicidal Assessment Feels Threatened In Home Enviroment: No <Dayan Smith - Last Filed: 03/17/18 22:21> Family/Social History - Physician Review Nursing Documentation Reviewed: Yes Family/Social History: No Known Family HX Smoking Status: Former Smoker Hx Alcohol Use: No Hx Substance Use: No Hx Substance Use Treatment: No <Dayan Smith - Last Filed: 03/17/18 22:21> Allergies/Home Meds <Dayan Smith - Last Filed: 03/17/18 22:21> <Rome Chapa - Last Filed: 03/21/18 13:40> Allergies/Adverse Reactions: Allergies Sulfa (Sulfonamide Antibiotics) Allergy (Verified 03/17/18 15:14) FATIGUE Home Medications: Home Meds Medication Instructions Recorded Confirmed RX: Amlodipine Besylate [Norvasc] 10 mg PO DAILY 07/17/15 09/03/17 RX: Metoprolol Tartrate [Lopressor] 50 mg PO BID 04/27/17 09/03/17 RX: Omeprazole 20 mg PO DAILY 04/27/17 09/03/17 Insulin Glargine,Hum.rec.anlog 50 unit SQ HS 09/03/17 09/03/17 [Lantus] RX: Magnesium Oxide [Mag-Ox] 400 mg PO DAILY 09/03/17 09/03/17 RX: MetFORMIN [glucoPHAGE] 1,000 mg PO BID 09/03/17 09/03/17 Review of Systems - Physician Review All systems were reviewed & negative as marked: Yes - Review of Systems Constitutional: Normal. absent: Fevers Eyes: Normal ENT: Normal Respiratory: Normal. absent: SOB, Cough Cardiovascular: Normal. absent: Chest Pain, Palpitations, Syncope Gastrointestinal: Abdominal Pain, Nausea, Appetite Changes, Anorexia. absent: Stool Changes, Constipation, Diarrhea, Vomiting Genitourinary Female: Dysuria. absent: Frequency, Hematuria, Urine Output Changes, Vaginal Bleeding, Vaginal Discharge Musculoskeletal: Back Pain, Myalgias (lumbar paraspinal muscles b/l). absent: J oint Swelling Skin: Normal Neurological: Normal. absent: Headache, Dizziness <Dayan Smith - Last Filed: 03/17/18 22:21> Physical Exam Vital Signs Reviewed: Yes Temperature: Afebrile Blood Pressure: Normal Pulse: Regular Respiratory Rate: Normal Appearance: Positive for: Well-Appearing, Non-Toxic, Comfortable Pain Distress: Moderate Mental Status: Positive for: Alert and Oriented X 3 - Systems Exam Head: Present: Atraumatic, Normocephalic Pupils: Present: PERRL Extroacular Muscles: Present: EOMI Conjunctiva: Present: Normal Mouth: Present: Moist Mucous Membranes Neck: Present: Normal Range of Motion. No: Meningeal Signs, MIDLINE TENDERNESS, Paraspinal Tenderness Respiratory/Chest: Present: Clear to Auscultation, Good Air Exchange. No: Respiratory Distress, Accessory Muscle Use, Wheezes, Retracting Cardiovascular: Present: Regular Rate and Rhythm, Normal S1, S2, Peripheal Pulses Present. No: Murmurs Abdomen: Present: Tenderness (diffuse; most tender in epigastric region and RUQ), Normal Bowel Sounds, Guarding. No: Distention Back: Present: Normal Inspection, Paraspinal Tenderness (thoracic, lumbar). No: Midline Tenderness Upper Extremity: Present: Normal Inspection, Normal ROM, NORMAL PULSES Lower Extremity: Present: Normal Inspection, NORMAL PULSES, Normal ROM Neurological: Present: GCS=15, CN II-XII Intact, Speech Normal, Motor Func Grossly Intact, Normal Sensory Function, Normal Cerebellar Funct, Gait Normal Skin: Present: Warm, Dry, Normal Color. No: Rashes Lymphatic: No: Cervical Adenopathy Psychiatric: Present: Alert, Oriented x 3, Normal Insight, Normal Concentration <Dayan Smith - Last Filed: 03/17/18 22:21> Vital Signs Temp Pulse Resp BP Pulse Ox 03/17/18 21:30 98.0 F 80 16 122/72 100 03/17/18 18:24 85 18 128/58 L 100 03/17/18 16:46 90 16 130/50 L 100 03/17/18 16:21 85 18 148/78 99 03/17/18 15:18 98.0 F 03/17/18 15:14 93 H 18 159/84 H 99 <Rome Chapa - Last Filed: 03/21/18 13:40> Medical Decision Making ED Course and Treatment: 03/17/18 14:52 53 y/o female with PMH of IN, HTN, DM Type 2, Hypothyroidism, chronic back pain, and COPD who presents to the ED c/o abdominal pain x 7 days. Pain is 10/10, diffuse, constant, sharp and burning. Pt has been unable to eat much secondary to pain. She has associated nausea and reflux worse when she lies flat. She visited the GI doctor yesterday but was denied endoscopy until she receives cardiac clearance from her help desk assistant. She takes Zantac as needed and has previously been on omeprazole which she stopped last week. Also complaining of dysuria. Denies fever, chills, SOB, chest pain, palpitations, syncope, diap horesis, diarrhea, vomiting, hematochezia, fatigue, rash, hematuria, vaginal bleeding or discharge. Physical exam: NL cardiac and pulmonary exams Non-distended, normal bowel sounds, diffusely tender, worst at epigastric region, guarding Will get EKG Will get CT abd/pelvis Will get gallbladder US Will get labs (CBC, CMP, troponin, lipase) Will get UA, culture EKG read by Dr. Chapa; Rate 88, incomplete right BBB, no t wave inversions or st elevations CBC: wnl CMP: wnl Troponin: nl 03/17/18 16:31 pt reevaluated after GI cocktail, pain is slightly better will give morphine 2mg 03/17/18 18:15 pt reevaluated, abdominal exam consistent with previous pt reports decreased pain while resting UA reveals protein and trace ketones -will give 1L NS bolus to hydrate 03/17/18 19:19 Abd/Pelvic CT FINDINGS: LOWER THORAX: Stable 1.2 cm pleural-based left lower lobe nodule, unchanged from prior studies. LIVER: Coarse hepatic calcifications in the right lobe no gross lesion or ductal dilatation. GALLBLADDER AND BILE DUCTS: Unremarkable. PANCREAS: Unremarkable. No gross lesion or ductal dilatation. SPLEEN: Unremarkable. ADRENALS: Left adrenal 1.3 cm myelolipoma and 2.2 cm indeterminate nodule. KIDNEYS AND URETERS: Unremarkable. No hydronephrosis. No solid mass. VASCULATURE: Unremarkable. No aortic aneurysm. BOWEL: Unremarkable. No obstruction. No gross mural thickening. APPENDIX: No findings to suggest acute appendicitis. PERITONEUM: Unremarkable. No free fluid. No free air. US- Gallbladder Electronically Signed on Mar 17, 2018 8:56:19 PM EDT by: Horace Shepard M.D., [place] Certified by ABR & CBCCT Other Findings: None Impression: Fatty liver. Otherwise negative. 03/17/18 22:26 Impression: Gastritis Plan: Take omeprazole every morning for 30 days Take pepcid twice daily for 7 days and then as needed Increase fluids to stay hydrated Avoid NSAIDS like ibuprofen and alieve; only Tylenol for pain Followup with GI doctor within 2 days Followup with help desk assistant within 2 days Followup with primary doctor within 2 days 03/17/18 22:42 Plan discussed with pt who agrees and understands. Pt is comfortable with discharge home. - EKG Interpretation Interpreted by ED Physician: Yes Type: 12 lead EKG <Dayan Smith - Last Filed: 03/17/18 22:21> - Lab Interpretations Microbiology Results: Microbiology Results 03/17/18 17:00 Urine Urine Culture - Final No Growth (<1,000 CFU/ML) Lab Results: 03/17/18 16:10 03/17/18 16:10 Lab Results 03/17/18 17:00: Urine Color Yellow, Urine Appearance Sl cloudy, Urine pH 6.0, Ur Specific [place] >= 1.030, Urine Protein 30 H, Urine Glucose (UA) 100 H, Urine Ketones Trace H, Urine Blood Negative, Urine Nitrate Negative, Urine Bilirubin Negative, Urine Urobilinogen 1.0 H, Ur Leukocyte Esterase Negative, Urine RBC Negative, Urine WBC 0 - 2, Ur Epithelial Cells 4 - 5, Urine Bacteria Few 03/17/18 16:10: Troponin I < 0.01, Lipase 115 03/17/18 16:10: Sodium 142, Potassium 4.1, Chloride 103, Carbon Dioxide 26, Anion Gap 17, BUN 25 H, Creatinine 1.1, Est GFR ( Amer) > 60, Est GFR (Non-Af Amer) 52, Random Glucose 159 H, Calcium 9.8, Total Bilirubin 0.4, AST 20, ALT 18, Alkaline Phosphatase 106, Total Protein 8.1, Albumin 4.7, Globulin 3.4, Albumin/Globulin Ratio 1.4 03/17/18 16:10: WBC 9.9 D, RBC 4.77, Hgb 12.4, Hct 37.3, MCV 78.2 L D, MCH 26.0, MCHC 33.2, RDW 13.8, Plt Count 176, MPV 11.1 H, Gran % 70.1 H, Lymph % (Auto) 25.5, [place] % (Auto) 4.2, Eos % (Auto) 0.0 L, Baso % (Auto) 0.2, Gran # 6.92 H, Lymph # (Auto) 2.5, Perry # (Auto) 0.4, Eos # (Auto) 0.0, Baso # (Auto) 0.02 03/17/18 16:09: POC Glucose (mg/dL) 179 H - RAD Interpretation Radiology Orders: 03/17/18 15:54 ABD & PELVIS IV CONTRAST ONLY [CT] Stat 03/17/18 16:10 GALL BLADDER [US] Stat - Medication Orders Current Medication Orders: Discontinued Medications Al Hydrox/Mg Hydrox/Simethicone (Maalox Plus 30 Ml) 30 ml PO STAT STA Stop: 03/17/18 15:41 Last Admin: 03/17/18 16:04 Dose: 30 ml Belladonna/Phenobarbital ( Elixir) 5 ml PO STAT STA Stop: 03/17/18 15:41 Last Admin: 03/17/18 16:04 Dose: 5 ml Sodium Chloride (Sodium Chloride 0.9%) 1,000 mls @ 999 mls/hr IV .Q1H1M STA Stop: 03/17/18 19:14 Last Admin: 03/17/18 18:53 Dose: 999 mls/hr eMAR Start Stop Document 03/17/18 18:53 PEGGY (Rec: 03/17/18 18:54 PEGGY [id number]) Intravenous Solution Start Date 03/17/18 Start Time 18:53 End Date 03/17/18 End time 19:53 Total Infusion Time 60 Lidocaine (Lidocaine 2% Viscous) 15 ml PO Q3H PRN PRN Reason: Heartburn Lidocaine HCl (Lidocaine 2% Viscous) 15 ml PO Q3H PRN PRN Reason: Heartburn Last Admin: 03/17/18 16:04 Dose: 15 ml Morphine Sulfate (Morphine) 2 mg IVP STAT STA Stop: 03/17/18 16:12 Last Admin: 03/17/18 16:44 Dose: 2 mg MAR Pain Assessment Document 03/17/18 16:44 PEGGY (Rec: 03/17/18 16:44 PEGGY [id number]) Pain Reassessment Is this a pain reassessment? Yes Presence of Pain Presence of Pain Yes Pain Scale Used Protocol: PSCALES Pain Scale Used Numeric Location Upper or Lower Upper Pain Location Body Site Abdomen Description Description Sharp Intensity of Pain at present 10 IVP Administration Document 03/17/18 16:44 PEGGY (Rec: 03/17/18 16:44 PEGGY [id number]) Charges for Administration # of IVP Administrations 1 <Rome Cahpa - Last Filed: 03/21/18 13:40> - PA / [employer] / Resident Statement / has reviewed & agrees with the documentation as recorded. <Rome Chapa - Last Filed: 03/21/18 13:40> Disposition/Present on Arrival - Present on Arrival Any Indicators Present on Arrival: No History of DVT/PE: No History of Uncontrolled Diabetes: No Urinary Catheter: No History Surgical Site Infection Following: None - Disposition Have Diagnosis and Disposition been Completed?: Yes Disposition Time: 21:00 <Dayan Smith - Last Filed: 03/17/18 22:21> <Rome Chapa - Last Filed: 03/21/18 13:40> - Disposition Diagnosis: Gastritis Disposition: HOME/ ROUTINE Condition: IMPROVED Discharge Instructions (ExitCare): Gastritis Additional Instructions: Take omeprazole every morning for 30 days Take pepcid twice daily for 7 days and then as needed Increase fluids to stay hydrated Followup with GI doctor within 2 days Followup with primary doctor within 2 days Prescriptions: Famotidine [Pepcid] 20 mg PO BID PRN #30 tab PRN Reason: reflux RX: Omeprazole 20 mg PO DAILY #30 Referrals: Andres Russo MD [Staff Provider] - Follow up with primary Mary Leonard MD [Medical Doctor] - Follow up with primary Forms: [employer] (Spanish)
[2018-03-17 15:15] VITALS: BMI 32.3
[2018-03-17 15:18] VITALS: TEMP 98
[2018-03-17] MEDS ORDERED: Alum-Mag Hydrox-Simethicone Susp (30 mL) PO STA (15:40)
[2018-03-17] MEDS ORDERED: Lidocaine 2% Viscous 100 ml PO PRN (15:40)
[2018-03-17] MEDS ORDERED: Atrop/Hyosc/Scopal/PB Elixir (120 ml) PO STA (15:40)
[2018-03-17] MEDS ORDERED: Morphine 2 mg/ml ISec IVP STA (16:11)
[2018-03-17 16:22] LABS: BASO # 0.02 K/mm3 (0.0-2.0); BASO % 0.2 % (0.0-3.0); GRAN # 6.92 (1.4-6.5); GRAN % 70.1 % (50.0-68.0); HEMOGLOBIN 12.4 g/dL (12.0-16.0); LYMPH # 2.5 (1.2-3.4); LYMPH % 25.5 % (22.0-35.0); MEAN CELL VOLUME 78.2 fl (80.0-105.0); MEAN CORPUSCULAR HGB CONC 33.2 g/dl (31.0-37.0); MEAN PLATELET VOLUME 11.1 fl (7.0-11.0); MONO # 0.4 (0.1-0.6); MONO % 4.2 % (1.0-6.0); RBC 4.77 10^6/uL (3.5-6.1); RED CELL DISTRIBUTION WIDTH 13.8 % (11.5-14.5); WHITE BLOOD COUNT 9.9 10^3/ul (4.5-11.0)
[2018-03-17 16:33] LABS: ALB/GLOB RATIO 1.4 (1.1-1.8); ALBUMIN 4.7 g/dL (3.0-4.8); ALT/SGPT 18 U/L (7-56); AST/SGOT 20 U/L (14-36); BLOOD UREA NITROGEN 25 mg/dL (7-21); CALCIUM 9.8 mg/dL (8.4-10.5); GFR NON-AFRICAN AMERICAN 52
[2018-03-17 16:47] VITALS: O2SAT 100
[2018-03-17 17:28] LABS: LIPASE 115 U/L (23-300)
[2018-03-17 17:40] LABS: TROPONIN I < 0.01 ng/mL
[2018-03-17 17:50] LABS: URINE BILIRUBIN NEGATIVE (NEGATIVE); URINE BLOOD NEGATIVE (NEGATIVE); URINE GLUCOSE (UA) 100 mg/dL (NEGATIVE); URINE LEUKOCYTE ESTERASE NEGATIVE Leu/uL (NEGATIVE); URINE PROTEIN 30 mg/dL (<30 mg/dL)
[2018-03-17 17:58] LABS: URINE APPEARANCE SL CLOUDY (CLEAR); URINE COLOR YELLOW (YELLOW)
[2018-03-17 18:05] LABS: URINE BACTERIA FEW (NEG); URINE RBC NEGATIVE /hpf (0-2); URINE WBC 0 - 2 /hpf (0-6)
[2018-03-17] MEDS ORDERED: Sodium Chloride 0.9% 1,000 ML IV STA (18:14)
[2018-03-17] MEDS ORDERED: Iohexol 350 MG/100 ML VIAL ONE (18:17)
--- NOTE | 2018-03-17 18:57 | CT ---
Date of service: 03/17/2018 PROCEDURE: CT Abdomen and Pelvis with contrast HISTORY: abd pain, h/o gastric ulcer COMPARISON: CT scan of the abdomen pelvis dated 02/14/2015 TECHNIQUE: Contrast dose: 100 mL Omnipaque 350 Radiation dose: Total exam DLP = 732.3 mGy-cm. This CT exam was performed using one or more of the following dose reduction techniques: Automated exposure control, adjustment of the mA and/or kV according to patient size, and/or use of iterative reconstruction technique. FINDINGS: LOWER THORAX: Stable 1.2 cm pleural-based left lower lobe nodule, unchanged from prior studies. LIVER: Coarse hepatic calcifications in the right lobe no gross lesion or ductal dilatation. GALLBLADDER AND BILE DUCTS: Unremarkable. PANCREAS: Unremarkable. No gross lesion or ductal dilatation. SPLEEN: Unremarkable. ADRENALS: Left adrenal 1.3 cm myelolipoma and 2.2 cm indeterminate nodule. KIDNEYS AND URETERS: Unremarkable. No hydronephrosis. No solid mass. VASCULATURE: Unremarkable. No aortic aneurysm. BOWEL: Unremarkable. No obstruction. No gross mural thickening. APPENDIX: No findings to suggest acute appendicitis. PERITONEUM: Unremarkable. No free fluid. No free air. LYMPH NODES: Unremarkable. No enlarged lymph nodes. BLADDER: Unremarkable. REPRODUCTIVE: Unremarkable. BONES: No acute fracture. OTHER FINDINGS: None. IMPRESSION: No acute abdominal pelvic pathology. Stable findings as above.
[2018-03-17 22:45] VITALS: BP 122/72; PULSE 80; RESP 16
--- NOTE | 2018-03-18 09:58 | CARD ---
APPROVED REPORT Date of service: 03/17/2018 EKG Measurement Heart [id number] <Conclusion> Normal sinus rhythm Incomplete right bundle branch block PRWP, possible due to lead positioning No change
--- NOTE | 2018-03-18 11:34 | US ---
Date of service: 03/17/2018 HISTORY: ruq pain COMPARISON: None. TECHNIQUE: Sonographic evaluation of the right upper quadrant of the abdomen. FINDINGS: LIVER: Measures 13.7 cm in length. Increased echogenicity of the liver parenchyma. No mass. No intrahepatic bile duct dilatation. GALLBLADDER: Unremarkable. No gallstones. COMMON BILE DUCT: Measures 6 mm. No stones. No dilatation. PANCREAS: Unremarkable as visualized. No mass. No ductal dilatation. RIGHT KIDNEY: Measures cm in length. Normal echogenicity. No calculus, mass, or hydronephrosis. AORTA: No aneurysmal dilatation. IVC: Unremarkable. OTHER FINDINGS: None . IMPRESSION: Hepatic steatosis. Otherwise, unremarkable right upper quadrant ultrasound.
== END 2018-03-17 21:30 | disposition home or self-care (01) ==
LOC: ED 14:41
DX: K29.70 Gastritis, unspecified, without bleeding (principal); I25.10 Atherosclerotic heart disease of native coronary artery without angina pectoris; I10 Essential (primary) hypertension; I25.2 Old myocardial infarction; E11.9 Type 2 diabetes mellitus without complications; K21.9 Gastro-esophageal reflux disease without esophagitis; Z95.5 Presence of coronary angioplasty implant and graft; Z87.891 Personal history of nicotine dependence
CPT/HCPCS: 74177; 76705; 80053; 81001; 82948; 83690; 84484; 85025; 87086; 93005; 96361; 96374; 99284; J2270; J7030; Q9967

== ENCOUNTER 2018-04-18 10:07 | Observation (INO) | payer MEDICAID ==
[2018-04-18 10:46] VITALS: BMI 33.3
[2018-04-18 10:57] VITALS: O2SAT 100
[2018-04-18] MEDS ORDERED: Sodium Chloride 0.9% 500 ML IV STA ×2 (11:36→13:02)
--- NOTE | 2018-04-18 12:11 | ED PDOC ---
Arrival/HPI - General Chief Complaint: Abdominal Pain Time Seen by Provider: 04/18/18 10:58 Historian: Patient - History of Present Illness Narrative History of Present Illness (Text): 04/18/18 12:08 53-year-old diabetic female presents today with worsening epigastric and right upper quadrant abdominal pain. Patient states she has been having this pain that has been gradually worsening over the past 3 weeks. Patient denies fevers or chills. She is complaining of nausea with an episode of vomiting 3 days ago. Patient states the pain is sharp and stabbing located to the epigastric region. She denies any chest pain or shortness of breath. She denies fevers or chills. No diarrhea or constipation. Patient states she's been taking omeprazole at home without improvement. Past Medical History - Provider Review Nursing Documentation Reviewed: Yes - Travel History Have you recently traveled outside [place] w/in the past 3 mons?: No - Past History Past History: No Previous - Infectious Disease Hx of Infectious Diseases: None - Tetanus Immunization Tetanus Immunization: Unknown - Cardiac Hx Cardiac Disorders: Yes (CAD, mi) Hx Hypertension: Yes - Pulmonary Hx Respiratory Disorders: Yes Hx Asthma: Yes Hx Chronic Obstructive Pulmonary Disease (COPD): Yes - Neurological Hx Neurological Disorder: Yes Hx Dizziness: Yes - HEENT Hx HEENT Disorder: Yes (eyeglasses) - Renal Hx Renal Disorder: No (denies) - Endocrine/Metabolic Hx Endocrine Disorders: Yes Hx Diabetes Mellitus Type 1: Yes Hx Diabetes Mellitus Type 2: Yes Hx Hyperthyroidism: Yes - Hematological/Oncological Hx Blood Disorders: Yes Hx Anemia: Yes - Integumentary Hx Dermatological Disorder: No (denies) - Musculoskeletal/Rheumatological Hx Musculoskeletal Disorders: No (denies) - Gastrointestinal Hx Gastrointestinal Disorders: Yes Hx Gastroesophageal Reflux: Yes - Genitourinary/Gynecological Hx Genitourinary Disorders: No - Psychiatric Hx Psychophysiologic Disorder: Yes Hx Depression: Yes Hx Substance Use: No - Surgical History Hx Appendectomy: Yes Hx Cardiac Catheterization: Yes Hx Coronary Stent: Yes (x1) Hx Hysterectomy: (Tubal ligation) Hx Orthopedic Surgery: Yes (left foot) - Anesthesia Hx Anesthesia: Yes Hx Anesthesia Reactions: No Hx Malignant Hyperthermia: No - Suicidal Assessment Feels Threatened In Home Enviroment: No Family/Social History - Physician Review Nursing Documentation Reviewed: Yes Family/Social History: Unknown Family HX Smoking Status: Former Smoker Hx Alcohol Use: No Hx Substance Use: No Hx Substance Use Treatment: No Allergies/Home Meds Allergies/Adverse Reactions: Allergies Sulfa (Sulfonamide Antibiotics) Allergy (Verified 03/17/18 15:14) FATIGUE Home Medications: Home Meds Medication Instructions Recorded Confirmed Amlodipine Besylate [Norvasc] 10 mg PO DAILY 07/17/15 09/03/17 Metoprolol Tartrate [Lopressor] 50 mg PO BID 04/27/17 09/03/17 Omeprazole 20 mg PO DAILY 04/27/17 09/03/17 Insulin Glargine,Hum.rec.anlog 50 unit SQ HS 09/03/17 09/03/17 [Lantus] Magnesium Oxide [Mag-Ox] 400 mg PO DAILY 09/03/17 09/03/17 MetFORMIN [glucoPHAGE] 1,000 mg PO BID 09/03/17 09/03/17 Review of Systems - Review of Systems Constitutional: absent: Fatigue, Fevers Respiratory: absent: SOB, Cough Cardiovascular: absent: Chest Pain, Palpitations Gastrointestinal: Abdominal Pain, Nausea, Vomiting. absent: Constipation, Diarrhea Genitourinary Female: absent: Dysuria, Frequency Musculoskeletal: absent: Arthralgias, Back Pain, Neck Pain Skin: absent: Rash, Pruritis Neurological: absent: Headache, Dizziness Psychiatric: absent: Anxiety, Depression Physical Exam Vital Signs Reviewed: Yes Vital Signs Temp Pulse Resp BP Pulse Ox 04/18/18 10:07 98.5 F 94 H 18 154/79 H 100 Temperature: Afebrile Blood Pressure: Hypertensive Pulse: Regular Respiratory Rate: Normal Appearance: Positive for: Well-Appearing, Non-Toxic, Comfortable Pain Distress: None Mental Status: Positive for: Alert and Oriented X 3 - Systems Exam Head: Present: Atraumatic Mouth: Present: Moist Mucous Membranes Neck: Present: Normal Range of Motion Respiratory/Chest: Present: Clear to Auscultation, Good Air Exchange. No: Respiratory Distress, Accessory Muscle Use Cardiovascular: Present: Regular Rate and Rhythm, Normal S1, S2. No: Murmurs Abdomen: Present: Tenderness (+ ruq and epigastric tenderness), Normal Bowel Sounds, Guarding (voluntary). No: Distention, Peritoneal Signs, Rebound Back: Present: Normal Inspection. No: CVA Tenderness, Midline Tenderness, Paraspinal Tenderness Upper Extremity: Present: Normal Inspection Lower Extremity: Present: Normal Inspection. No: Edema Neurological: Present: GCS=15, Speech Normal Skin: Present: Warm, Dry, Normal Color. No: Rashes Psychiatric: Present: Alert, Oriented x 3 Medical Decision Making ED Course and Treatment: 04/18/18 12:10 Patient is nontoxic well appearing with stable vital signs presenting with epigastric abdominal pain CBC: wnl CMP: glucose; 429 Lipase: wnl trop; wnl Ultrasound:FINDINGS: LIVER: Measures 13.8 cm. Normal echogenicity of the liver parenchyma. No mass. No intrahepatic bile duct dilatation. Coarse calcifications are seen in the right lobe of the liver GALLBLADDER: Unremarkable. No gallstones. COMMON BILE DUCT: Measures 5.8 mm. No stones. No dilatation. PANCREAS: Unremarkable as visualized. No mass. No ductal dilatation. RIGHT KIDNEY: Measures 10.2 x 5.5 x 5.1cm. Normal echogenicity. No calculus, mass, or hydronephrosis. 8 mm cyst LEFT KIDNEY: Measures 9.3 x 4.8 x 4.7cm. Normal echogenicity. No calculus, mass, or hydronephrosis. SPLEEN: Normal in size and contour. No mass. AORTA: No aneurysmal dilatation. IVC: Unremarkable. OTHER FINDINGS: None. IMPRESSION: Unremarkable abdominal sonogram. CAT scan:FINDINGS: LOWER THORAX: Stable appearance of 1.2 cm nodule at the left lung base LIVER: Unremarkable. No gross lesion or ductal dilatation. Coarse calcifications are seen in the right lobe of the liver GALLBLADDER AND BILE DUCTS: Unremarkable. PANCREAS: Unremarkable. No gross lesion or ductal dilatation. SPLEEN: Unremarkable. ADRENALS: There are 2 separate fatty lesions in the left adrenal gland consistent with myelolipomas KIDNEYS AND URETERS: Unremarkable. No hydronephrosis. No solid mass. VASCULATURE: Unremarkable. No aortic aneurysm. No aortic atherosclerotic calcification or mural plaque present. BOWEL: Unremarkable. No obstruction. No gross mural thickening. APPENDIX: Normal appendix. PERITONEUM: Unremarkable. No free fluid. No free air. LYMPH NODES: Unremarkable. No enlarged lymph nodes. BLADDER: Unremarkable. REPRODUCTIVE: Unremarkable. BONES: There is a moderate size central disc protrusion at L4-5 OTHER FINDINGS: None. IMPRESSION: No acute intra-abdominal findings Patient reassessment: pt resting comfortably in er. after fluids glucose improved to 276. case was discussed in depth with Dr. Lopez; advised admit patient to hospitalist service and he will do EGD as patient with hx of ulcers. Discussed all results with patient in depth Case discussed in depth with Dr. storm. Excepts observational status admission with consult Dr. Lopez. Impression: intractable abdominal pain, hyperglycemia admit observational status. - RAD Interpretation Radiology Orders: 04/18/18 11:35 ABDOMEN COMPLETE [US] Stat 04/18/18 11:36 ABD & PELVIS IV CONTRAST ONLY [CT] Stat - Medication Orders Current Medication Orders: Discontinued Medications Sodium Chloride (Sodium Chloride 0.9%) 500 mls @ 999 mls/hr IV .Q31M STA Stop: 04/18/18 12:06 Pantoprazole Sodium (Protonix Inj) 40 mg IVP STAT STA Stop: 04/18/18 11:37 Disposition/Present on Arrival - Present on Arrival Any Indicators Present on Arrival: No History of DVT/PE: No History of Uncontrolled Diabetes: No Urinary Catheter: No History of Decub. Ulcer: No History Surgical Site Infection Following: None - Disposition Have Diagnosis and Disposition been Completed?: Yes Diagnosis: Intractable abdominal pain Disposition: HOSPITALIZED Disposition Time: 13:47 Patient Plan: Observation Patient Problems: Current Active Problems Problem Status Onset Intractable abdominal pain Acute Condition: FAIR
[2018-04-18 12:39] LABS: BASO # 0.02 K/mm3 (0.0-2.0); BASO % 0.2 % (0.0-3.0); GRAN # 6.09 (1.4-6.5); GRAN % 71.1 % (50.0-68.0); HEMOGLOBIN 11.6 g/dL (12.0-16.0); LYMPH # 2.1 (1.2-3.4); LYMPH % 24.6 % (22.0-35.0); MEAN CORPUSCULAR HEMOGLOBIN 25.6 pg (25.0-35.0); MEAN CORPUSCULAR HGB CONC 32.4 g/dl (31.0-37.0); MEAN PLATELET VOLUME 10.6 fl (7.0-11.0); MONO # 0.4 (0.1-0.6); MONO % 4.1 % (1.0-6.0); RBC 4.53 10^6/uL (3.5-6.1); RED CELL DISTRIBUTION WIDTH 14.1 % (11.5-14.5); WHITE BLOOD COUNT 8.6 10^3/uL (4.5-11.0)
[2018-04-18] MEDS ORDERED: Iohexol 350 MG/100 ML VIAL ONE (12:55)
[2018-04-18 12:58] LABS: TROPONIN I < 0.01 ng/mL
[2018-04-18 13:01] LABS: ALB/GLOB RATIO 1.3 (1.1-1.8); ALBUMIN 4.1 g/dL (3.0-4.8); ALT/SGPT 22 U/L (7-56); AST/SGOT 20 U/L (14-36); BLOOD UREA NITROGEN 23 mg/dL (7-21); CALCIUM 9.7 mg/dL (8.4-10.5); GFR NON-AFRICAN AMERICAN 58; LIPASE 87 U/L (23-300)
[2018-04-18] MEDS ORDERED: Insulin Regular 1 UNITS/0.01 ML ML SC STA (13:27)
--- NOTE | 2018-04-18 14:17 | CT ---
Date of service: 04/18/2018 PROCEDURE: CT Abdomen and Pelvis with contrast HISTORY: abd pain COMPARISON: 03/17/2018 TECHNIQUE: Contrast dose: 100 cc of Omni 350 Radiation dose: Total exam DLP = 733.79 mGy-cm. This CT exam was performed using one or more of the following dose reduction techniques: Automated exposure control, adjustment of the mA and/or kV according to patient size, and/or use of iterative reconstruction technique. FINDINGS: LOWER THORAX: Stable appearance of 1.2 cm nodule at the left lung base LIVER: Unremarkable. No gross lesion or ductal dilatation. Coarse calcifications are seen in the right lobe of the liver GALLBLADDER AND BILE DUCTS: Unremarkable. PANCREAS: Unremarkable. No gross lesion or ductal dilatation. SPLEEN: Unremarkable. ADRENALS: There are 2 separate fatty lesions in the left adrenal gland consistent with myelolipomas KIDNEYS AND URETERS: Unremarkable. No hydronephrosis. No solid mass. VASCULATURE: Unremarkable. No aortic aneurysm. No aortic atherosclerotic calcification or mural plaque present. BOWEL: Unremarkable. No obstruction. No gross mural thickening. APPENDIX: Normal appendix. PERITONEUM: Unremarkable. No free fluid. No free air. LYMPH NODES: Unremarkable. No enlarged lymph nodes. BLADDER: Unremarkable. REPRODUCTIVE: Unremarkable. BONES: There is a moderate size central disc protrusion at L4-5 OTHER FINDINGS: None. IMPRESSION: No acute intra-abdominal findings
--- NOTE | 2018-04-18 14:57 | US ---
Date of service: 04/18/2018 HISTORY: ruq/epigastric pain COMPARISON: CT same day TECHNIQUE: Sonographic evaluation of the abdomen. FINDINGS: LIVER: Measures 13.8 cm. Normal echogenicity of the liver parenchyma. No mass. No intrahepatic bile duct dilatation. Coarse calcifications are seen in the right lobe of the liver GALLBLADDER: Unremarkable. No gallstones. COMMON BILE DUCT: Measures 5.8 mm. No stones. No dilatation. PANCREAS: Unremarkable as visualized. No mass. No ductal dilatation. RIGHT KIDNEY: Measures 10.2 x 5.5 x 5.1cm. Normal echogenicity. No calculus, mass, or hydronephrosis. 8 mm cyst LEFT KIDNEY: Measures 9.3 x 4.8 x 4.7cm. Normal echogenicity. No calculus, mass, or hydronephrosis. SPLEEN: Normal in size and contour. No mass. AORTA: No aneurysmal dilatation. IVC: Unremarkable. OTHER FINDINGS: None. IMPRESSION: Unremarkable abdominal sonogram.
--- NOTE | 2018-04-18 15:11 | CP.PCM.HP ---
<NikoleMadonna - Last Filed: 04/18/18 15:48> History of Present Illness - History of Present Illness History of Present Illness: Madonna Agustin, PGY2, H&P for Dr Schwartz: CC: epigastric pain 53 year old female with PMH DM, HTN, CAD x1 stent (last 3 years ago), anxiety, depression, COPD, hypothyroidism, presents for epigastric pain for past 4 weeks. Patient describes the pain as burning, radiating to her throat. It occurs mostly at nigh time, also describes using 2-3 pillows at night and waking up with a cough. Patient states that she was diagnosed with a gastric ulcer 3 years ago when she had an EGD and colonoscopy done, negative for H pylori. She took Protonix for some time, which alleviated her symptoms. Denies melena, hematemesis, changes in stool character. Patient endorses 2-3 non bloody, nonbilious vomiting episodes 2 days ago. Patient reports 10 lbs weight loss wit hin the past month. States that her symptoms are worse after she eats fried foods. Denies chest pain, diaphoresis, palpitations, fevers, chills, urinary symptoms, leg swelling. In ED, patient afebrile, vitals stable, labs remarkable for BG 429. Patient reports that she has not taken her home insulin. Patient given 2 L NS bolus in ED, abd pelvis CAT and abd US negative for cholelithiasis, intraabdominal pathology. Repeat BG was 250s without giving insulin. Patient reports that she is hungry currently. 12 point ROS obtained and negative, except as per HPI. PMH: IDDM2 with medication non-compliance, HTN, CAD, Anxiety/Depression, COPD, and hypothyroidism PSH: Cardiac Stent x1 three years ago, Appendectomy, Tonsillectomy, Left Ankle surgery Family: Denies Social: Denies tobacco, alcohol or illicit drug use; Lives at home with daughter; Does not work. Allergies: Sulfa Home Medications: As per AUG PMD: Dr. Roy Cardio Tara Lopez Present on Admission - Present on Admission Any Indicators Present on Admission: No History of DVT/PE: No History of Uncontrolled Diabetes: Yes Urinary Catheter: No Decubitus Ulcer Present: No Review of Systems - Review of Systems All systems: reviewed and no additional remarkable complaints except Review of Systems: as per HPI Past Patient History - Infectious Disease Hx of Infectious Diseases: None - Tetanus Immunizations Tetanus Immunization: Unknown - Past Medical History & Family History Past Medical History?: Yes - Past Social History Smoking Status: Former Smoker - CARDIAC Hx Cardiac Disorders: Yes (CAD, mi) Hx Hypertension: Yes - PULMONARY Hx Respiratory Disorders: Yes Hx Asthma: Yes Hx Chronic Obstructive Pulmonary Disease (COPD): Yes - NEUROLOGICAL Hx Neurological Disorder: Yes Hx Dizziness: Yes - HEENT Hx HEENT Problems: Yes (eyeglasses) - RENAL Hx Chronic Kidney Disease: No (denies) - ENDOCRINE/METABOLIC Hx Endocrine Disorders: Yes Hx Diabetes Mellitus Type 1: Yes Hx Diabetes Mellitus Type 2: Yes Hx Hyperthyroidism: Yes - HEMATOLOGICAL/ONCOLOGICAL Hx Blood Disorders: Yes Hx Anemia: Yes - INTEGUMENTARY Hx Dermatological Problems: No (denies) - MUSCULOSKELETAL/RHEUMATOLOGICAL Hx Musculoskeletal Disorders: No (denies) - GASTROINTESTINAL Hx Gastrointestinal Disorders: Yes Hx Gastroesophageal Reflux: Yes - GENITOURINARY/GYNECOLOGICAL Hx Genitourinary Disorders: No - PSYCHIATRIC Hx Psychophysiologic Disorder: Yes Hx Depression: Yes Hx Substance Use: No - SURGICAL HISTORY Hx Appendectomy: Yes Hx Cardiac Catheterization: Yes Hx Coronary Stent: Yes (x1) Hx Hysterectomy: (Tubal ligation) Hx Orthopedic Surgery: Yes (left foot) - ANESTHESIA Hx Anesthesia: Yes Hx Anesthesia Reactions: No Hx Malignant Hyperthermia: No Meds Home Medications: Home Medication List Medication Instructions Recorded Confirmed Type Albuterol HFA [Ventolin HFA 90 2 puff IH Q4 #1 puff 04/19/18 Rx mcg/actuation (8 g)] Aspirin [Ecotrin] 81 mg PO DAILY #30 tabec 04/19/18 Rx Atorvastatin [Lipitor] 40 mg PO DAILY #30 tab 04/19/18 Rx Clopidogrel [Plavix] 75 mg PO DAILY #30 tab 04/19/18 Rx Docusate [Colace] 100 mg PO BID #60 cap 04/19/18 Rx Famotidine [Pepcid] 20 mg PO BID PRN #30 tab 04/19/18 Rx Insulin Glargine,Hum.rec.anlog 25 unit SQ HS 30 Days insuln.pen 04/19/18 Rx [Basaglar Kwikpen U-100] Insulin Lispro [humALOG] 15 units SC ACTID 30 Days #450 ml 04/19/18 Rx Levothyroxine [Synthroid] 100 mcg PO ACB #30 tab 04/19/18 Rx Linaclotide [Linzess] 290 mcg PO DAILY #30 capsule 04/19/18 Rx Lisinopril [Zestril] 5 mg PO DAILY #30 tab 04/19/18 Rx MetFORMIN [glucoPHAGE] 1,000 mg PO BID #60 tab 04/19/18 Rx Metoclopramide HCl [Reglan] 5 mg PO DAILY #30 tablet 04/19/18 Rx Metoprolol Tartrate [Lopressor] 50 mg PO BID #60 tab 04/19/18 Rx Polyethylene Glycol 3350 [Miralax] 17 gm PO BID #60 packet 04/19/18 Rx Allergies/Adverse Reactions: Allergies Allergy/AdvReac Type Severity Reaction Status Date / Time Sulfa (Sulfonamide Allergy FATIGUE Verified 04/18/18 19:57 Antibiotics) Physical Exam - Constitutional Appears: Non-toxic, No Acute Distress - Head Exam Head Exam: ATRAUMATIC, NORMOCEPHALIC - Eye Exam Eye Exam: EOMI, Normal appearance, PERRL. absent: Conjunctival injection, Nystagmus, Periorbital tenderness, Scleral icterus Pupil Exam: NORMAL ACCOMODATION, PERRL. absent: Miosis, Mydriatic, Unequal - ENT Exam ENT Exam: Mucous Membranes Moist - Neck Exam Neck exam: Positive for: Full Rom - Respiratory Exam Respiratory Exam: Clear to Auscultation Bilateral, NORMAL BREATHING PATTERN. absent: Accessory Muscle Use, Chest Wall Tenderness, Decreased Breath Sounds, Wheezes, Respiratory Distress, Stridor - Cardiovascular Exam Cardiovascular Exam: REGULAR RHYTHM, RRR, +S1, +S2. absent: Diastolic murmur - GI/Abdominal Exam GI & Abdominal Exam: Hypoactive Bowel Sounds, Soft, Tenderness (TTP in epigatric region). absent: Firm, Guarding, Hernia, Mass, Rebound, Rigid - Rectal Exam Rectal Exam: Deferred - Extremities Exam Extremities exam: Positive for: normal inspection. Negative for: calf tenderness, joint swelling - Back Exam Back exam: NORMAL INSPECTION. absent: CVA tenderness (L), CVA tenderness (R) - Neurological Exam Neurological exam: Alert, CN II-XII Intact, Oriented x3 - Psychiatric Exam Psychiatric exam: Normal Affect, Normal Mood - Skin Skin Exam: Dry, Normal Color, Warm Results - Vital Signs Recent Vital Signs: Last Vital Signs Temp 98.5 F 04/18/18 10:07 Pulse 94 H 04/18/18 10:07 Resp 18 04/18/18 10:07 BP 154/79 H 04/18/18 10:07 Pulse Ox 100 04/18/18 10:07 - Labs Result Diagrams: 04/18/18 11:50 04/18/18 11:50 Labs: Laboratory Results - last 24 hr 04/18/18 04/18/18 11:50 11:50 WBC 8.6 RBC 4.53 Hgb 11.6 L Hct 35.8 L MCV 79.0 L MCH 25.6 MCHC 32.4 RDW 14.1 Plt Count 127 MPV 10.6 Gran % 71.1 H Lymph % (Auto) 24.6 [place] % (Auto) 4.1 Eos % (Auto) 0.0 L Baso % (Auto) 0.2 Gran # 6.09 Lymph # (Auto) 2.1 [place] # (Auto) 0.4 Eos # (Auto) 0.0 Baso # (Auto) 0.02 Sodium 138 Potassium 5.0 Chloride 99 Carbon Dioxide 28 Anion Gap 15 BUN 23 H Creatinine 1.0 Est GFR ( Amer) > 60 Est GFR (Non-Af Amer) 58 Random Glucose 429 H* D Calcium 9.7 Total Bilirubin 0.6 AST 20 ALT 22 Alkaline Phosphatase 115 Lactate Dehydrogenase 302 L Total Creatine Kinase 93 Troponin I < 0.01 Total Protein 7.4 Albumin 4.1 Globulin 3.3 Albumin/Globulin Ratio 1.3 Lipase 87 Assessment & Plan - Assessment and Plan (Free Text) Assessment: 52 year old female with PMH DM, HTN, CAD x1 stent (last 3 years ago), anxiety, depression, COPD, hypothyroidism, presents for epigastric pain for past 4 weeks: Epigastric pain: 2/2 PUD vs gastritis vs ACS, ruled out cholelithiasis, pancreatitis - protonix IV daily - GI Dr Lopez on board. Will go for EGD today. ASA and plavix held at home for past 5 days. - will keep NPO for now. resume diet after EGD - Initial trop and EKG neg. f/u trops x2 - f/u tsh, lipid panel, hgb A1C - monitor Hyperglycemia: 2.2 likely uncontrolled diabetes - hgb A1C - BG iN ED 429->then 250 without intervention - ISS high. patient currently NPO. Will resume home insulin once patient is eating, likely after EGD. Constipation: - Patient scheduled for EGD today, can add colace and miralax once diet resumed. History of CAD s/p one PETR - Will resume home ASA, plavix as per GI. - resume home Lipitor History of HTN - hold home lisinopril, Lopressor, norvasc for now. will resume after EGD and patient eating well. History of COPD - Continue home Albuterol History of Hypothyroidism - Continue home Synthroid GI Prophylaxis: Protonix DVT Prophylaxis: SCD's Case seen and discussed with Dr Schwartz. <Savi Schwartz - Last Filed: 04/20/18 14:41> Results - Vital Signs Recent Vital Signs: Last Vital Signs Temp 97.9 F 04/19/18 07:47 Pulse 94 H 04/19/18 07:47 Resp 20 04/19/18 07:47 BP 132/60 04/19/18 07:47 Pulse Ox 100 04/19/18 07:47 - Labs Result Diagrams: 04/19/18 06:20 04/19/18 06:20 Attending/Attestation - Attestation I have personally seen and examined this patient.: Yes I have fully participated in the care of the patient.: Yes I have reviewed all pertinent clinical information: Yes Notes (Text): 04/20/18 14:37 attending note; Patient seen and examined with resident in ER. Patient is alert and awake. complaining of epigastric discomfort. Complaining of nausea. Denies any vomiting. Denies any hematemesis. Patient is a 53 year old female with PMH DM, HTN, CAD x1 stent (last 3 years ago), anxiety, depression, COPD, hypothyroidism, presents for epigastric pain for past 4 weeks. abdominal ultrasound and CT abdomen and pelvis is negative. Case discussed with GI in detail. Plan for endoscopy. NPO. Started on IV fluids. uncontrolled diabetes; continue insulin sliding scale. Start home medication. Dietary education given. Insulin dosage adjustment instruction given. History of coronary artery disease and stent placement; will restart aspirin and Plavix tomorrow. Hypertension; blood pressure is controlled. upon discharge the patient will follow-up with PMD Dr. Roy
[2018-04-18] MEDS ORDERED: Sodium Chloride 0.9% 1,000 ML IV SCH (15:15)
--- NOTE | 2018-04-18 15:20 | CP.PCM.CON ---
<Edenilson Yap - Last Filed: 04/18/18 17:06> History of Present Illness - History of Present Illness History of Present Illness: GI Fellow PGY4 consult note. Dina Colvin is a very pleasant 53F, telugu speaking only with history of cardiac stents presenting with significant epigastric pain x 1 week. The pain is burning, 7/10. Pressing on upper abdomen with her hand makes pain worse. She has history of PUD, EGD 2013. She has been taking PPI everyday before breakfast some times at night as well due to refractory acid reflux. She has not been taking extra NSAIDs besides, but she does taking aspirin and plavix daily. Fortunately she has not been taking Plavix for almost 1 week. She has also been complaining of intractable vomiting recently. The vomit is green and occurs after eating large meals as she becomes nauseas. She denies blood. She is diabetic and blood sugars have not been well controlled. PMHx - CAD w/ stents last 3 yrs ago, HTN, T2DM SocHx - Denies tobacco, alcohol use currently 12pt ROS completed and negative except for above. Past Patient History - Infectious Disease Hx of Infectious Diseases: None - Tetanus Immunizations Tetanus Immunization: Unknown - Past Medical History & Family History Past Medical History?: Yes - Past Social History Smoking Status: Former Smoker - CARDIAC Hx Cardiac Disorders: Yes (CAD, mi) Hx Hypertension: Yes - PULMONARY Hx Respiratory Disorders: Yes Hx Asthma: Yes Hx Chronic Obstructive Pulmonary Disease (COPD): Yes - NEUROLOGICAL Hx Neurological Disorder: Yes Hx Dizziness: Yes - HEENT Hx HEENT Problems: Yes (eyeglasses) - RENAL Hx Chronic Kidney Disease: No (denies) - ENDOCRINE/METABOLIC Hx Endocrine Disorders: Yes Hx Diabetes Mellitus Type 1: Yes Hx Diabetes Mellitus Type 2: Yes Hx Hyperthyroidism: Yes - HEMATOLOGICAL/ONCOLOGICAL Hx Blood Disorders: Yes Hx Anemia: Yes - INTEGUMENTARY Hx Dermatological Problems: No (denies) - MUSCULOSKELETAL/RHEUMATOLOGICAL Hx Musculoskeletal Disorders: No (denies) - GASTROINTESTINAL Hx Gastrointestinal Disorders: Yes Hx Gastroesophageal Reflux: Yes - GENITOURINARY/GYNECOLOGICAL Hx Genitourinary Disorders: No - PSYCHIATRIC Hx Psychophysiologic Disorder: Yes Hx Depression: Yes Hx Substance Use: No - SURGICAL HISTORY Hx Appendectomy: Yes Hx Cardiac Catheterization: Yes Hx Coronary Stent: Yes (x1) Hx Hysterectomy: (Tubal ligation) Hx Orthopedic Surgery: Yes (left foot) - ANESTHESIA Hx Anesthesia: Yes Hx Anesthesia Reactions: No Hx Malignant Hyperthermia: No Meds Allergies/Adverse Reactions: Allergies Allergy/AdvReac Type Severity Reaction Status Date / Time Sulfa (Sulfonamide Allergy FATIGUE Verified 04/18/18 19:57 Antibiotics) - Medications Medications: Current Medications Sodium Chloride (Sodium Chloride 0.9%) 1,000 mls @ 100 mls/hr IV .Q10H AYDIN Physical Exam - Constitutional Appears: Non-toxic, No Acute Distress, Chronically Ill - Head Exam Head Exam: ATRAUMATIC, NORMAL INSPECTION - Eye Exam Eye Exam: EOMI, Normal appearance - ENT Exam ENT Exam: Mucous Membranes Moist, Normal Exam - Respiratory Exam Respiratory Exam: Clear to Auscultation Bilateral, NORMAL BREATHING PATTERN - Cardiovascular Exam Cardiovascular Exam: REGULAR RHYTHM, +S1, +S2 - GI/Abdominal Exam GI & Abdominal Exam: Normal Bowel Sounds, Soft, Tenderness. absent: Distended, Organomegaly - Extremities Exam Extremities exam: Positive for: normal inspection. Negative for: joint swelling - Neurological Exam Neurological exam: Alert, Normal Gait, Oriented x3 - Psychiatric Exam Psychiatric exam: Normal Affect, Normal Mood - Skin Skin Exam: Dry, Normal Color Results - Vital Signs Recent Vital Signs: Last Vital Signs Temp 98.5 F 04/18/18 10:07 Pulse 94 H 04/18/18 10:07 Resp 18 04/18/18 10:07 BP 154/79 H 04/18/18 10:07 Pulse Ox 100 04/18/18 10:07 - Labs Result Diagrams: 04/18/18 11:50 04/18/18 11:50 Labs: Laboratory Results - last 24 hr 04/18/18 04/18/18 11:50 11:50 WBC 8.6 RBC 4.53 Hgb 11.6 L Hct 35.8 L MCV 79.0 L MCH 25.6 MCHC 32.4 RDW 14.1 Plt Count 127 MPV 10.6 Gran % 71.1 H Lymph % (Auto) 24.6 [place] % (Auto) 4.1 Eos % (Auto) 0.0 L Baso % (Auto) 0.2 Gran # 6.09 Lymph # (Auto) 2.1 [place] # (Auto) 0.4 Eos # (Auto) 0.0 Baso # (Auto) 0.02 Sodium 138 Potassium 5.0 Chloride 99 Carbon Dioxide 28 Anion Gap 15 BUN 23 H Creatinine 1.0 Est GFR ( Amer) > 60 Est GFR (Non-Af Amer) 58 Random Glucose 429 H* D Calcium 9.7 Total Bilirubin 0.6 AST 20 ALT 22 Alkaline Phosphatase 115 Lactate Dehydrogenase 302 L Total Creatine Kinase 93 Troponin I < 0.01 Total Protein 7.4 Albumin 4.1 Globulin 3.3 Albumin/Globulin Ratio 1.3 Lipase 87 Assessment & Plan - Assessment and Plan (Free Text) Assessment: #Epigastric pain #Gastritis #Suspected Gastroparesis #Constipation #T2DM, blood sugars uncontrolled #HTN #CAD s/p stents PLAN: -CT scan reviewed, significant amount of stool in colon. -Plan for EGD. NPO. -Continue PPI -Goal blood sugar less than 200. Check HbA1c. -Bowel regimen - Date & Time Date: 04/18/18 Time: 17:08 <Meghan Lopez V - Last Filed: 04/18/18 22:58> Meds - Medications Medications: Current Medications Albuterol Sulfate (Albuterol 0.083% Inhal Deena (2.5 Mg/3 Ml) Ud) 2.5 mg IH [id number] [facility] Atorvastatin Calcium (Lipitor) 40 mg PO DAILY [facility] Docusate Sodium (Colace) 100 mg PO BID [facility] Last Admin: 04/18/18 18:28 Dose: 100 mg Famotidine (Pepcid) 40 mg PO HS [facility] Last Admin: 04/18/18 22:03 Dose: 40 mg Insulin Detemir (Levemir) 10 unit SC [facility] Last Admin: 04/18/18 22:04 Dose: 10 units Insulin Human Regular (Humulin R High) 0 units SC [facility]; Protocol Last Admin: 04/18/18 22:04 Dose: Not Given Levothyroxine Sodium (Synthroid) 100 mcg PO ACB [facility] Metoclopramide HCl (Reglan) 5 mg IVP [facility] Stop: 04/20/18 23:59 Last Admin: 04/18/18 22:03 Dose: 5 mg Pantoprazole Sodium (Protonix Ec Tab) 40 mg PO DAILY [facility] Polyethylene Glycol (Miralax) 17 gm PO BID [facility] Last Admin: 04/18/18 18:28 Dose: 17 gm Results - Vital Signs Recent Vital Signs: Last Vital Signs Temp 98.5 F 04/18/18 17:07 Pulse 92 H 10/29/18 17:07 Resp 15 04/18/18 21:36 BP 120/82 04/18/18 17:07 Pulse Ox 100 04/18/18 17:07 - Labs Result Diagrams: 04/18/18 11:50 04/18/18 11:50 Labs: Laboratory Results - last 24 hr 04/18/18 04/18/18 04/18/18 11:50 11:50 15:08 WBC 8.6 RBC 4.53 Hgb 11.6 L Hct 35.8 L MCV 79.0 L MCH 25.6 MCHC 32.4 RDW 14.1 Plt Count 127 MPV 10.6 Gran % 71.1 H Lymph % (Auto) 24.6 [place] % (Auto) 4.1 Eos % (Auto) 0.0 L Baso % (Auto) 0.2 Gran # 6.09 Lymph # (Auto) 2.1 [place] # (Auto) 0.4 Eos # (Auto) 0.0 Baso # (Auto) 0.02 Sodium 138 Potassium 5.0 Chloride 99 Carbon Dioxide 28 Anion Gap 15 BUN 23 H Creatinine 1.0 Est GFR ( Amer) > 60 Est GFR (Non-Af Amer) 58 POC Glucose (mg/dL) 272 H Random Glucose 429 H* D Calcium 9.7 Total Bilirubin 0.6 AST 20 ALT 22 Alkaline Phosphatase 115 Lactate Dehydrogenase 302 L Total Creatine Kinase 93 Troponin I < 0.01 Total Protein 7.4 Albumin 4.1 Globulin 3.3 Albumin/Globulin Ratio 1.3 Lipase 87 TSH 3rd Generation 04/18/18 04/18/18 04/18/18 18:14 18:20 18:20 WBC RBC Hgb Hct MCV MCH MCHC RDW Plt Count MPV Gran % Lymph % (Auto) [place] % (Auto) Eos % (Auto) Baso % (Auto) Gran # Lymph # (Auto) [place] # (Auto) Eos # (Auto) Baso # (Auto) Sodium Potassium Chloride Carbon Dioxide Anion Gap BUN Creatinine Est GFR ( Amer) Est GFR (Non-Af Amer) POC Glucose (mg/dL) 304 H Random Glucose Calcium Total Bilirubin AST ALT Alkaline Phosphatase Lactate Dehydrogenase Total Creatine Kinase Troponin I < 0.01 Total Protein Albumin Globulin Albumin/Globulin Ratio Lipase TSH 3rd Generation 3.51 04/18/18 21:18 WBC RBC Hgb Hct MCV MCH MCHC RDW Plt Count MPV Gran % Lymph % (Auto) [place] % (Auto) Eos % (Auto) Baso % (Auto) Gran # Lymph # (Auto) [place]ye # (Auto) Eos # (Auto) Baso # (Auto) Sodium Potassium Chloride Carbon Dioxide Anion Gap BUN Creatinine Est GFR ( Amer) Est GFR (Non-Af Amer) POC Glucose (mg/dL) 274 H Random Glucose Calcium Total Bilirubin AST ALT Alkaline Phosphatase Lactate Dehydrogenase Total Creatine Kinase Troponin I Total Protein Albumin Globulin Albumin/Globulin Ratio Lipase TSH 3rd Generation Attending/Attestation - Attestation I have personally seen and examined this patient.: Yes I have fully participated in the care of the patient.: Yes I have reviewed all pertinent clinical information: Yes Notes (Text): This is an addendum to GI consult report dictated by the GI Fellow.The patient was seen and examined earlier. Medical records, lab studies, imagings were reviewed. Last 24 hours events reviewed. Agreed with the above treatment plan as outlined in GI Fellow 's notes with the addition of the following This patient has a long history of nausea abdominal discomfort Poorly controlled diabetes mellitus On examination tenderness presented in epigastric area imaging studies were reviewed Scheduled for EGD followup LFT and CBC 04/18/18 22:58
[2018-04-18] MEDS ORDERED: Propofol 10 mg/ml Inj (20 ML) ONE ×2 (15:59→16:24)
--- NOTE | 2018-04-18 18:01 | CARD ---
APPROVED REPORT Date of service: 04/18/2018 EKG Measurement Heart [id number] <Conclusion> Normal sinus rhythm Low voltage QRS Borderline ECG
[2018-04-18] MEDS: POLYETHYLENE GLYCOL 3350 17 GM/Dose PACKET PO SCH (18:28)
[2018-04-18] MEDS: Insulin Reg-HIGH-Coverage SC SCH ×2 (18:28→22:04)
[2018-04-18] MEDS ORDERED: Albuterol 0.083% Inhal Sol (2.5 mg/3 mL) UD IH SCH (19:30)
[2018-04-18] MEDS ORDERED: Pneumococcal 23-Valent Vaccine IM ONE (21:58)
[2018-04-18] MEDS ORDERED: Influenza Vaccine 60 mcg/0.5 mL SYR (4YR UP) IM ONE (21:58)
[2018-04-18] MEDS ORDERED: Insulin Detemir 100 units/ml Vial (Levemir) SC SCH (22:00)
[2018-04-18] MEDS: Albuterol 0.083% Inhal Sol (2.5 mg/3 mL) UD IH SCH (23:24)
[2018-04-19] MEDS: Albuterol 0.083% Inhal Sol (2.5 mg/3 mL) UD IH SCH ×4 (03:41→15:48)
[2018-04-19 07:17] LABS: LDL CHOLESTEROL 95 mg/dL (0-129)
[2018-04-19 07:18] LABS: BASO # 0.02 K/mm3 (0.0-2.0); BASO % 0.2 % (0.0-3.0); GRAN # 5.62 (1.4-6.5); GRAN % 69.4 % (50.0-68.0); HEMOGLOBIN 11.1 g/dL (12.0-16.0); LYMPH % 24.9 % (22.0-35.0); MEAN CELL VOLUME 79.3 fl (80.0-105.0); MEAN CORPUSCULAR HEMOGLOBIN 25.6 pg (25.0-35.0); MEAN CORPUSCULAR HGB CONC 32.3 g/dl (31.0-37.0); MONO # 0.5 (0.1-0.6); MONO % 5.5 % (1.0-6.0); RBC 4.34 10^6/uL (3.5-6.1); RED CELL DISTRIBUTION WIDTH 14.4 % (11.5-14.5); WHITE BLOOD COUNT 8.1 10^3/uL (4.5-11.0)
[2018-04-19 07:19] LABS: ALB/GLOB RATIO 1.3 (1.1-1.8); ALBUMIN 3.9 g/dL (3.0-4.8); ALT/SGPT 17 U/L (7-56); AST/SGOT 18 U/L (14-36); BLOOD UREA NITROGEN 16 mg/dL (7-21); CALCIUM 9.4 mg/dL (8.4-10.5); GFR NON-AFRICAN AMERICAN > 60; HDL CHOLESTEROL 35 mg/dL (29-60)
[2018-04-19] MEDS ORDERED: Levothyroxine 100 MCG TAB PO SCH (07:30)
[2018-04-19 07:48] VITALS: BP 132/60; PULSE 94; RESP 20; TEMP 97.9
[2018-04-19] MEDS: Insulin Reg-HIGH-Coverage SC SCH ×2 (08:19→12:15)
--- NOTE | 2018-04-19 09:19 | CP.PCM.PN ---
<Keo Mitchell - Last Filed: 04/19/18 10:59> Subjective - Date & Time of Evaluation Date of Evaluation: 04/19/18 Time of Evaluation: 09:12 - Subjective Subjective: PGY-2 GI progress note for Dr Lopez No acute events noted overnight. Today patient complained of headache. Denied abdominal pain/nausea/emesis. Stated her last bowel movement was yesterday which appeared normal. Objective - Vital Signs/Intake and Output Vital Signs (last 24 hours): Temp Pulse Resp BP Pulse Ox 97.9 F 94 H 20 132/60 100 04/19/18 07:47 04/19/18 07:47 04/19/18 07:47 04/19/18 07:47 04/19/18 07:47 - Medications Medications: Current Medications Albuterol Sulfate (Albuterol 0.083% Inhal Deena (2.5 Mg/3 Ml) Ud) 2.5 mg IH [id number] [facility] Last Admin: 04/19/18 07:22 Dose: 2.5 mg Atorvastatin Calcium (Lipitor) 40 mg PO DAILY [facility] Docusate Sodium (Colace) 100 mg PO BID [facility] Last Admin: 04/18/18 18:28 Dose: 100 mg Famotidine (Pepcid) 40 mg PO HS [facility] Last Admin: 04/18/18 22:03 Dose: 40 mg Insulin Detemir (Levemir) 10 unit SC HS [facility] Last Admin: 04/18/18 22:04 Dose: 10 units Insulin Human Regular (Humulin R High) 0 units SC [facility]; Protocol Last Admin: 04/19/18 08:19 Dose: 4 u Levothyroxine Sodium (Synthroid) 100 mcg PO ACB [facility] Last Admin: 04/19/18 08:20 Dose: 100 mcg Metoclopramide HCl (Reglan) 5 mg IVP [facility] Stop: 04/20/18 23:59 Last Admin: 04/19/18 08:20 Dose: 5 mg Pantoprazole Sodium (Protonix Ec Tab) 40 mg PO DAILY [facility] Polyethylene Glycol (Miralax) 17 gm PO BID [facility] Last Admin: 04/18/18 18:28 Dose: 17 gm - Labs Labs: 04/19/18 06:20 04/19/18 06:20 - Additional Findings Additional findings: - Constitutional Appears: Non-toxic, No Acute Distress, Chronically Ill - Head Exam Head Exam: ATRAUMATIC, NORMAL INSPECTION - Eye Exam Eye Exam: EOMI, Normal appearance - ENT Exam ENT Exam: Mucous Membranes Moist, Normal Exam - Respiratory Exam Respiratory Exam: Clear to Auscultation Bilateral, NORMAL BREATHING PATTERN - Cardiovascular Exam Cardiovascular Exam: REGULAR RHYTHM, +S1, +S2 - GI/Abdominal Exam GI & Abdominal Exam: Normal Bowel Sounds, Soft, Tenderness. absent: Distended, Organomegaly - Extremities Exam Extremities exam: Positive for: normal inspection. Negative for: joint swelling - Neurological Exam Neurological exam: Alert, Normal Gait, Oriented x3 - Psychiatric Exam Psychiatric exam: Normal Affect, Normal Mood - Skin Skin Exam: Dry, Normal Color Assessment and Plan - Assessment and Plan (Free Text) Plan: #Epigastric pain #Gastritis #Suspected Gastroparesis #Constipation #T2DM, blood sugars uncontrolled #HTN #CAD s/p stents PLAN: -CT scan reviewed, significant amount of stool in colon. -abdominal sonogram 03/2018 was unremarkable -s/p EGD 04/18 * z-line regular, gastritis, gastroparesis 2/2 to DM2, normal examined duodenum -Continue PPI -LFTs have remained normal -Goal blood sugar less than 200. Check HbA1c. -tolerating full liquid diet -Bowel regimen - miralax 17g bid, colace 100mg po bid -reglan 5mg ivp achs -patient will need elective outpatient colonoscopy -upon discharge - in addition to stool softeners, we recommend a short course of reglan 4-6 weeks only to avoid side effects including tardive dyskinesia Seen and discussed with Dr Lopez <Meghan Lopez V - Last Filed: 04/20/18 00:38> Objective - Vital Signs/Intake and Output Vital Signs (last 24 hours): Temp Pulse Resp BP Pulse Ox 97.9 F 94 H 20 132/60 100 04/19/18 07:47 04/19/18 07:47 04/19/18 07:47 04/19/18 07:47 04/19/18 07:47 - Labs Labs: 04/19/18 06:20 04/19/18 06:20 Attending/Attestation - Attestation I have personally seen and examined this patient.: Yes I have fully participated in the care of the patient.: Yes I have reviewed all pertinent clinical information, including history, physical exam and plan: Yes Notes (Text): This is an addendum to GI followup report dictated by the [employer]. The patient was seen and evaluated earlier. Medical records, lab studies, imagings were reviewed. Last 24 hours events reviewed. Agreed with the above treatment plan as outlined in [employer]lier 's notes with the addition of the following Tolerating diet Slowly advance diet Low residue soft diet Only short course of reglan for gastroparesis Laxative regimen or linzesis for constipation Elective colonoscopy 04/20/18 00:37
--- NOTE | 2018-04-19 09:32 | CP.PCM.PN ---
Subjective - Date & Time of Evaluation Date of Evaluation: 04/19/18 Time of Evaluation: 07:45 - Subjective Subjective: Internal medicine progress note for Dr. Schwartz Patient seen and examined this AM at bedside. She has no current complaints although she does report a headache overnight that has since resolved. She denies f/c, n/v, BEAULIEU, CP, SOB, abdominal pain. She states that she has been eating well without difficulty and had a normal BM overnight. Objective - Vital Signs/Intake and Output Vital Signs (last 24 hours): Temp Pulse Resp BP Pulse Ox 97.9 F 94 H 20 132/60 100 04/19/18 07:47 04/19/18 07:47 04/19/18 07:47 04/19/18 07:47 04/19/18 07:47 - Medications Medications: Current Medications Albuterol Sulfate (Albuterol 0.083% Inhal Deena (2.5 Mg/3 Ml) Ud) 2.5 mg IH [id number] [facility] Last Admin: 04/19/18 07:22 Dose: 2.5 mg Atorvastatin Calcium (Lipitor) 40 mg PO DAILY [facility] Docusate Sodium (Colace) 100 mg PO BID [facility] Last Admin: 04/18/18 18:28 Dose: 100 mg Famotidine (Pepcid) 40 mg PO HS [facility] Last Admin: 04/18/18 22:03 Dose: 40 mg Insulin Detemir (Levemir) 10 unit SC HS [facility] Last Admin: 04/18/18 22:04 Dose: 10 units Insulin Human Regular (Humulin R High) 0 units SC [facility]; Protocol Last Admin: 04/19/18 08:19 Dose: 4 u Levothyroxine Sodium (Synthroid) 100 mcg PO ACB [facility] Last Admin: 04/19/18 08:20 Dose: 100 mcg Metoclopramide HCl (Reglan) 5 mg IVP ACH[facility] Stop: 04/20/18 23:59 Last Admin: 04/19/18 08:20 Dose: 5 mg Pantoprazole Sodium (Protonix Ec Tab) 40 mg PO DAILY [facility] Polyethylene Glycol (Miralax) 17 gm PO BID [facility] Last Admin: 04/18/18 18:28 Dose: 17 gm - Labs Labs: 04/19/18 06:20 04/19/18 06:20 - Constitutional Appears: Well, Non-toxic, No Acute Distress - Head Exam Head Exam: ATRAUMATIC, NORMOCEPHALIC - Eye Exam Eye Exam: EOMI - ENT Exam ENT Exam: Mucous Membranes Moist - Respiratory Exam Respiratory Exam: NORMAL BREATHING PATTERN - Cardiovascular Exam Cardiovascular Exam: REGULAR RHYTHM - GI/Abdominal Exam GI & Abdominal Exam: Soft. absent: Distended, Firm, Guarding, Rigid, [place]ness, Rebound - Extremities Exam Extremities Exam: Normal Capillary Refill. absent: Calf Tenderness, Pedal Edema - Neurological Exam Neurological Exam: Alert, Awake, Oriented x3 - Psychiatric Exam Psychiatric exam: Normal Affect, Normal Mood - Skin Skin Exam: Dry, Intact, Normal Color, Warm
[2018-04-19] MEDS ORDERED: Pantoprazole 40 mg EC Tab PO SCH (10:00)
[2018-04-19] MEDS: POLYETHYLENE GLYCOL 3350 17 GM/Dose PACKET PO SCH ×2 (10:50→10:52)
--- NOTE | 2018-04-19 13:45 | CP.PCM.DIS ---
<WigginsYue zimmerman - Last Filed: 04/19/18 16:13> Provider - Provider Date of Admission: 04/18/18 14:36 Attending physician: Savi Schwartz MD Primary care physician: Christina Roy DO Consults: Dr. Lopez, C[employer] Time Spent in preparation of Discharge (in minutes): 45 Hospital Course - Lab Results Lab Results: Most Recent Lab Values WBC 8.1 10^3/uL (4.5-11.0) 04/19/18 06:20 RBC 4.34 10^6/uL (3.5-6.1) 04/19/18 06:20 Hgb 11.1 g/dL (12.0-16.0) L 04/19/18 06:20 Hct 34.4 % (36.0-48.0) L 04/19/18 06:20 MCV 79.3 fl (80.0-105.0) L 04/19/18 06:20 MCH 25.6 pg (25.0-35.0) 04/19/18 06:20 MCHC 32.3 g/dl (31.0-37.0) 04/19/18 06:20 RDW 14.4 % (11.5-14.5) 04/19/18 06:20 Plt Count 133 10^3/uL (120.0-450.0) 04/19/18 06:20 MPV 11.0 fl (7.0-11.0) 04/19/18 06:20 Gran % 69.4 % (50.0-68.0) H 04/19/18 06:20 Lymph % (Auto) 24.9 % (22.0-35.0) 04/19/18 06:20 [place] % (Auto) 5.5 % (1.0-6.0) 04/19/18 06:20 Eos % (Auto) 0.0 % (1.5-5.0) L 04/19/18 06:20 Baso % (Auto) 0.2 % (0.0-3.0) 04/19/18 06:20 Gran # 5.62 (1.4-6.5) 04/19/18 06:20 Lymph # (Auto) 2.0 (1.2-3.4) 04/19/18 06:20 [place] # (Auto) 0.5 (0.1-0.6) 04/19/18 06:20 Eos # (Auto) 0.0 (0.0-0.7) 04/19/18 06:20 Baso # (Auto) 0.02 K/mm3 (0.0-2.0) 04/19/18 06:20 Sodium 139 mmol/L (132-148) 04/19/18 06:20 Potassium 4.4 mmol/L (3.6-5.0) 04/19/18 06:20 Chloride 104 mmol/L (98-107) 04/19/18 06:20 Carbon Dioxide 28 mmol/L (21-33) 04/19/18 06:20 Anion Gap 12 (10-20) 04/19/18 06:20 BUN 16 mg/dL (7-21) 04/19/18 06:20 Creatinine 0.9 mg/dl (0.7-1.2) 04/19/18 06:20 Est GFR ( Amer) > 60 04/19/18 06:20 Est GFR (Non-Af Amer) > 60 04/19/18 06:20 POC Glucose (mg/dL) 331 mg/dL (65-110) H 04/19/18 10:45 Random Glucose 276 mg/dL (70-110) H 04/19/18 06:20 Hemoglobin A1c 12.4 % (4.2-6.5) H 04/18/18 18:20 Calcium 9.4 mg/dL (8.4-10.5) 04/19/18 06:20 Phosphorus 3.6 mg/dL (2.5-4.5) 04/19/18 06:20 Magnesium 1.8 mg/dL (1.7-2.2) 04/19/18 06:20 Total Bilirubin 0.5 mg/dL (0.2-1.3) 04/19/18 06:20 AST 18 U/L (14-36) 04/19/18 06:20 ALT 17 U/L (7-56) 04/19/18 06:20 Alkaline Phosphatase 104 U/L (38-126) 04/19/18 06:20 Lactate Dehydrogenase 302 U/L (333-699) L 04/18/18 11:50 Total Creatine Kinase 93 U/L (35-230) 04/18/18 11:50 Troponin I < 0.01 ng/mL 04/19/18 01:30 Total Protein 7.0 g/dL (5.8-8.3) 04/19/18 06:20 Albumin 3.9 g/dL (3.0-4.8) 04/19/18 06:20 Globulin 3.1 gm/dL 04/19/18 06:20 Albumin/Globulin Ratio 1.3 (1.1-1.8) 04/19/18 06:20 Triglycerides 161 mg/dL (35-160) H 04/19/18 06:20 Cholesterol 153 mg/dL (130-200) 04/19/18 06:20 LDL Cholesterol Direct 95 mg/dL (0-129) 04/19/18 06:20 HDL Cholesterol 35 mg/dL (29-60) 04/19/18 06:20 Lipase 87 U/L (23-300) 04/18/18 11:50 TSH 3rd Generation 3.51 mIU/mL (0.46-4.68) 04/18/18 18:20 - Hospital Course Hospital Course: Upon presentation: 53 year old female with PMH DM, HTN, CAD x1 stent (last 3 years ago), anxiety, depression, COPD, hypothyroidism, presents for epigastric pain for past 4 weeks. Patient describes the pain as burning, radiating to her throat. It occurs mostly at night time, also describes using 2-3 pillows at night and waking up with a cough. Patient states that she was diagnosed with a gastric ulcer 3 years ago when she had an EGD and colonoscopy done, negative for H pylori. She took Protonix for some time, which alleviated her symptoms. Denies melena, hematemesis, changes in stool character. Patient endorses 2-3 non blo jennifer, nonbilious vomiting episodes 2 days ago. Patient reports 10 lbs weight loss within the past month. States that her symptoms are worse after she eats fried foods. Denied chest pain, diaphoresis, palpitations, fevers, chills, urinary symptoms, leg swelling. In ED: Patient afebrile, vitals stable, labs remarkable for BG 429. Patient reports that she has not taken her home insulin. Patient given 2 L NS bolus in ED, abd pelvis CAT and abd US negative for cholelithiasis, intra-abdominal pathology. Repeat BG was 250s without giving insulin. Patient reports that she is hungry currently. Hospital stay: Gastroenterology was consulted and performed EGD on the day of admission. Patient was found to have mild gastritis and signs of gastroparesis. Patient was informed of these results and the lifestyle modifications as well as new medications that would assist in preventing further episodes like this. The patient was educated abouther diabetes control and how this contributes to gastroparesis. Patient had a mild headache overnight which improved with tylenol. Patient had no further nausea or vomiting and was tolerating diet and having BM on day of discharge. Upon discharge the patient will be given refills for one month of all of her home medications and started on the new medications Colace, Linzess and Miralax. She was educated on the purpose of these medications and how to take them. She was instructed to follow up with her PMD and Dr. Lopez for outpatient colonoscopy. She was instructed to return to her nearest emergency room should symptoms such as but not limited to severe BEAULIEU, chest pain, shortness of breath, severe abdominal pain, nausea or vomiting fevers or chills to return the nearest ER. - Date & Time of H&P Date of H&P: 04/19/18 Time of H&P: 09:20 Discharge Exam - Head Exam Head Exam: ATRAUMATIC, NORMAL INSPECTION - Eye Exam Eye Exam: EOMI - ENT Exam ENT Exam: Mucous Membranes Moist - Respiratory Exam Respiratory Exam: NORMAL BREATHING PATTERN - Cardiovascular Exam Cardiovascular Exam: REGULAR RHYTHM - GI/Abdominal Exam GI & Abdominal Exam: Soft. absent: Distended, Firm, Guarding, Rebound, Tenderness - Extremities Exam Extremities exam: normal capillary refill, pedal pulses present - Neurological Exam Neurological exam: Alert, Oriented x3 - Psychiatric Exam Psychiatric exam: Normal Affect, Normal Mood - Skin Skin Exam: Dry, Intact, Normal Color, Warm Discharge Plan - Discharge Medications Prescriptions: Insulin Glargine,Hum.rec.anlog [Basaglar Kwikpen U-100] 25 unit SQ HS 30 Days insuln.pen Docusate [Colace] 100 mg PO BID #60 cap Aspirin [Ecotrin] 81 mg PO DAILY #30 tabec MetFORMIN [glucoPHAGE] 1,000 mg PO BID #60 tab Insulin Lispro [humALOG] 15 units SC ACTID 30 Days #450 ml Linaclotide [Linzess] 290 mcg PO DAILY #30 capsule Atorvastatin [Lipitor] 40 mg PO DAILY #30 tab Metoprolol Tartrate [Lopressor] 50 mg PO BID #60 tab Polyethylene Glycol 3350 [Miralax] 17 gm PO BID #60 packet Famotidine [Pepcid] 20 mg PO BID PRN #30 tab PRN Reason: reflux Clopidogrel [Plavix] 75 mg PO DAILY #30 tab Metoclopramide HCl [Reglan] 5 mg PO DAILY #30 tablet Levothyroxine [Synthroid] 100 mcg PO ACB #30 tab Albuterol HFA [Ventolin HFA 90 mcg/actuation (8 g)] 2 puff IH Q4 #1 puff Lisinopril [Zestril] 5 mg PO DAILY #30 tab - Follow Up Plan Condition: FAIR Disposition: HOME/ ROUTINE Instructions: Soft Diet, Acute Abdomen (Belly Pain), Adult (DC), Gastroparesis (Delayed Gastric Emptying) (DC) Additional Instructions: Upon Discharge you will have all of your medications refilled and given to you. Please do not take your Metformin until as you received contrast dye during your stay and taking metformin may damage your kidneys. Reglan is to be taken for one month only. Please follow up with your primary care doctor, Dr. Roy and Gastrointestinal specialist, Dr. Lopez within 5-7 days of discharge by calling their office to make an appointment. You will need to have a colonoscopy in the future with Dr. Lopez. Should you experience symptoms such as but not limited to severe headache, chest pain, SOB, intense new onset abdominal pain, fevers, and vomiting please return to your nearest ER immediately. Referrals: Christina Roy DO [Primary Care Provider] - <Savi Schwartz - Last Filed: 04/20/18 14:44> Provider - Provider Date of Admission: 04/18/18 14:36 Attending physician: Savi Schwartz MD Primary care physician: Christina Roy DO Hospital Course - Lab Results Lab Results: Most Recent Lab Values WBC 8.1 10^3/uL (4.5-11.0) 04/19/18 06:20 RBC 4.34 10^6/uL (3.5-6.1) 04/19/18 06:20 Hgb 11.1 g/dL (12.0-16.0) L 04/19/18 06:20 Hct 34.4 % (36.0-48.0) L 04/19/18 06:20 MCV 79.3 fl (80.0-105.0) L 04/19/18 06:20 MCH 25.6 pg (25.0-35.0) 04/19/18 06:20 MCHC 32.3 g/dl (31.0-37.0) 04/19/18 06:20 RDW 14.4 % (11.5-14.5) 04/19/18 06:20 Plt Count 133 10^3/uL (120.0-450.0) 04/19/18 06:20 MPV 11.0 fl (7.0-11.0) 04/19/18 06:20 Gran % 69.4 % (50.0-68.0) H 04/19/18 06:20 Lymph % (Auto) 24.9 % (22.0-35.0) 04/19/18 06:20 [place] % (Auto) 5.5 % (1.0-6.0) 04/19/18 06:20 Eos % (Auto) 0.0 % (1.5-5.0) L 04/19/18 06:20 Baso % (Auto) 0.2 % (0.0-3.0) 04/19/18 06:20 Gran # 5.62 (1.4-6.5) 04/19/18 06:20 Lymph # (Auto) 2.0 (1.2-3.4) 04/19/18 06:20 [place] # (Auto) 0.5 (0.1-0.6) 04/19/18 06:20 Eos # (Auto) 0.0 (0.0-0.7) 04/19/18 06:20 Baso # (Auto) 0.02 K/mm3 (0.0-2.0) 04/19/18 06:20 Sodium 139 mmol/L (132-148) 04/19/18 06:20 Potassium 4.4 mmol/L (3.6-5.0) 04/19/18 06:20 Chloride 104 mmol/L (98-107) 04/19/18 06:20 Carbon Dioxide 28 mmol/L (21-33) 04/19/18 06:20 Anion Gap 12 (10-20) 04/19/18 06:20 BUN 16 mg/dL (7-21) 04/19/18 06:20 Creatinine 0.9 mg/dl (0.7-1.2) 04/19/18 06:20 Est GFR ( Amer) > 60 04/19/18 06:20 Est GFR (Non-Af Amer) > 60 04/19/18 06:20 POC Glucose (mg/dL) 331 mg/dL (65-110) H 04/19/18 10:45 Random Glucose 276 mg/dL (70-110) H 04/19/18 06:20 Hemoglobin A1c 12.4 % (4.2-6.5) H 04/18/18 18:20 Calcium 9.4 mg/dL (8.4-10.5) 04/19/18 06:20 Phosphorus 3.6 mg/dL (2.5-4.5) 04/19/18 06:20 Magnesium 1.8 mg/dL (1.7-2.2) 04/19/18 06:20 Total Bilirubin 0.5 mg/dL (0.2-1.3) 04/19/18 06:20 AST 18 U/L (14-36) 04/19/18 06:20 ALT 17 U/L (7-56) 04/19/18 06:20 Alkaline Phosphatase 104 U/L (38-126) 04/19/18 06:20 Lactate Dehydrogenase 302 U/L (333-699) L 04/18/18 11:50 Total Creatine Kinase 93 U/L (35-230) 04/18/18 11:50 Troponin I < 0.01 ng/mL 04/19/18 01:30 Total Protein 7.0 g/dL (5.8-8.3) 04/19/18 06:20 Albumin 3.9 g/dL (3.0-4.8) 04/19/18 06:20 Globulin 3.1 gm/dL 04/19/18 06:20 Albumin/Globulin Ratio 1.3 (1.1-1.8) 04/19/18 06:20 Triglycerides 161 mg/dL (35-160) H 04/19/18 06:20 Cholesterol 153 mg/dL (130-200) 04/19/18 06:20 LDL Cholesterol Direct 95 mg/dL (0-129) 04/19/18 06:20 HDL Cholesterol 35 mg/dL (29-60) 04/19/18 06:20 Lipase 87 U/L (23-300) 04/18/18 11:50 TSH 3rd Generation 3.51 mIU/mL (0.46-4.68) 04/18/18 18:20 Attending/Attestation - Attestation I have personally seen and examined this patient.: Yes I have fully participated in the care of the patient.: Yes I have reviewed all pertinent clinical information, including history, physical exam and plan: Yes Notes (Text): 04/20/18 14:41 attending note; Patient seen and examined with resident. s/p EGD yesterday. Currently tolerating diet. denies any nausea, vomiting. Patient is a 53 year old female with PMH DM, HTN, CAD x1 stent (last 3 years ago), anxiety, depression, COPD, hypothyroidism, presents for epigastric pain for past 4 weeks. status post EGD; showed gastritis and gastroparesis. Started on Reglan. Constipation; started on Linzess per GI. Patient needs outpatient elective colonoscopy. Follow-up with Dr. Lopez. uncontrolled diabetes; continue insulin sliding scale. continue metformin and insulin. Dietary education given. Insulin dosage adjustment instruction given. History of coronary artery disease and stent placement; continue aspirin,Plavix and Lipitor. Hypertension; blood pressure is controlled. continue Lisinopril, metoprolol and Norvasc. hypothyroidism; continue Synthroid. Discharge home today. upon discharge the patient will follow-up with PMD Dr. Roy
== END 2018-04-19 16:50 | disposition home or self-care (01) ==
LOC: ED 10:07 → ERH 14:36 → 5RNO 17:37
PROVIDERS: ADMIT Internal Medicine; ATTEND Internal Medicine
DX: E11.43 Type 2 diabetes mellitus with diabetic autonomic (poly)neuropathy (principal); K31.84 Gastroparesis; K29.70 Gastritis, unspecified, without bleeding; E11.65 Type 2 diabetes mellitus with hyperglycemia; E03.9 Hypothyroidism, unspecified; I10 Essential (primary) hypertension; I25.10 Atherosclerotic heart disease of native coronary artery without angina pectoris; J44.9 Chronic obstructive pulmonary disease, unspecified; K21.9 Gastro-esophageal reflux disease without esophagitis; K59.00 Constipation, unspecified; Z95.5 Presence of coronary angioplasty implant and graft; Z87.891 Personal history of nicotine dependence; Z91.14 Patient's other noncompliance with medication regimen; Z79.02 Long term (current) use of antithrombotics/antiplatelets; Z79.82 Long term (current) use of aspirin
CPT/HCPCS: 36415; 43239; 74177; 76700; 80053; 80061; 82550; 82948; 83036; 83615; 83690; 83735; 84100; 84443; 84484; 85025; 88305; 88342; 93005; 94640; 96361; 96374; 96375; 96376; 99284; C9113; G0378; J2001; J2704; J2765; J7030; J7040; Q9967

== ENCOUNTER 2018-07-29 17:56 | Emergency (ER) | payer MEDICAID ==
[2018-07-29 18:00] VITALS: BMI 32.7
[2018-07-29 18:05] VITALS: RESP 18; TEMP 98.6; O2SAT 100
--- NOTE | 2018-07-29 18:56 | ED PDOC ---
Arrival/HPI - General Chief Complaint: Back Pain Time Seen by Provider: 07/29/18 18:16 Historian: Patient - History of Present Illness Narrative History of Present Illness (Text): 07/29/18 18:49 A 53 year old female, whose past medical history includes diabetes, hypertension, and gastritis, presents to the emergency department complaining of left sided chest pain and headache for the past 5 days. Patient reports her left chest pain radiates up her left shoulder to her back and notes associated nausea and cough. Patient denies any recent travel and notes she took Advil last night for the pain to no relief. Patient states her LNMP was 15 year ago. Patient denies any fever, chills, vomiting, myalgia, or any other complaints. PMD: Christina Plaza Time/Duration: Other (5 days) Symptom Onset: Gradual Symptom Course: Unchanged Activities at Onset: Light Context: Home Past Medical History - Provider Review Nursing Documentation Reviewed: Yes - Past History Past History: No Previous - Infectious Disease Hx of Infectious Diseases: None - Tetanus Immunization Tetanus Immunization: Unknown - Reproductive Menopause: Yes Currently : No - Cardiac Hx Cardiac Disorders: Yes (CAD, mi) Hx Hypertension: Yes - Pulmonary Hx Respiratory Disorders: Yes Hx Asthma: Yes Hx Chronic Obstructive Pulmonary Disease (COPD): Yes - Neurological Hx Neurological Disorder: Yes Hx Dizziness: Yes - HEENT Hx HEENT Disorder: Yes (eyeglasses) - Renal Hx Renal Disorder: No (denies) - Endocrine/Metabolic Hx Endocrine Disorders: Yes Hx Diabetes Mellitus Type 1: Yes Hx Diabetes Mellitus Type 2: Yes Hx Hyperthyroidism: Yes - Hematological/Oncological Hx Blood Disorders: Yes Hx Anemia: Yes - Integumentary Hx Dermatological Disorder: No (denies) - Musculoskeletal/Rheumatological Hx Musculoskeletal Disorders: No (denies) Hx Falls: Yes - Gastrointestinal Hx Gastrointestinal Disorders: Yes (GASTROPARESIS,GASTRITIS,CONSTIPATION) Hx Gastroesophageal Reflux: Yes - Genitourinary/Gynecological Hx Genitourinary Disorders: No - Psychiatric Hx Psychophysiologic Disorder: Yes Hx Depression: Yes Hx Substance Use: No - Surgical History Hx Appendectomy: Yes Hx Cardiac Catheterization: Yes Hx Coronary Stent: Yes (x1) Hx Hysterectomy: (Tubal ligation) Hx Orthopedic Surgery: Yes (left foot) - Anesthesia Hx Anesthesia: Yes Hx Anesthesia Reactions: No Hx Malignant Hyperthermia: No - Suicidal Assessment Feels Threatened In Home Enviroment: No Family/Social History - Physician Review Nursing Documentation Reviewed: Yes Family/Social History: No Known Family HX Smoking Status: Former Smoker Hx Alcohol Use: Yes (SOCIALLY) Hx Substance Use: No Hx Substance Use Treatment: No Allergies/Home Meds Allergies/Adverse Reactions: Allergies Sulfa (Sulfonamide Antibiotics) Allergy (Verified 04/18/18 19:57) FATIGUE Home Medications: Home Meds Medication Instructions Recorded Confirmed Amlodipine Besylate [Norvasc] 10 mg PO DAILY 07/17/15 04/18/18 Review of Systems - Physician Review All systems were reviewed & negative as marked: Yes - Review of Systems Constitutional: absent: Fevers Respiratory: Cough Cardiovascular: Chest Pain Gastrointestinal: Nausea. absent: Vomiting Musculoskeletal: Back Pain. absent: Myalgias Neurological: Headache Physical Exam Vital Signs Reviewed: Yes Vital Signs Temp Pulse Resp BP Pulse Ox 07/29/18 17:57 98.6 F 87 18 117/81 100 Temperature: Afebrile Blood Pressure: Normal Pulse: Regular Respiratory Rate: Normal Appearance: Positive for: Well-Appearing, Non-Toxic Pain Distress: Mild Mental Status: Positive for: Alert and Oriented X 3 - Systems Exam Head: Present: Atraumatic, Normocephalic Pupils: Present: PERRL Extroacular Muscles: Present: EOMI Conjunctiva: Present: Normal Respiratory/Chest: Present: Clear to Auscultation, Good Air Exchange, Tender to Palpation (tender to plapation to left upper chest and left upper back) Cardiovascular: Present: Regular Rate and Rhythm, Normal S1, S2. No: Murmurs Abdomen: No: Tenderness, Distention, Peritoneal Signs Upper Extremity: Present: Normal Inspection. No: Cyanosis, Edema Lower Extremity: Present: Normal Inspection. No: Edema Neurological: Present: GCS=15, CN II-XII Intact, Speech Normal Skin: Present: Warm, Dry, Normal Color. No: Rashes Psychiatric: Present: Alert, Oriented x 3, Normal Insight, Normal Concentration Medical Decision Making ED Course and Treatment: 07/29/18 18:59 Impression: 53 year old female presents to the emergency department complaining of left sided chest pain and headache Plan: -- EKG -- CMP -- CBC -- Chest X-ray -- Reassess and disposition Prior Visits: Notes and results from previous visits were reviewed. Progress Notes: 07/29/18 19:04 EKG: Ordered, reviewed, and independently interpreted the EKG. Rate : 92 BPM Rhythm : NSR Interpretation : Normal intervals, normal axis. 07/29/18 19:50 Chest X-ray read by me, shows no acute disease. - Transfer of Care Patient signed out to Dr:Gladys Hernandez Pending Labs:: troponin Other: reassessment and disposition - Scribe Statement The provider has reviewed the documentation as recorded by the Scribe Gill Linda All medical record entries made by the Scribe were at my direction and personally dictated by me. I have reviewed the chart and agree that the record accurately reflects my personal performance of the history, physical exam, medical decision making, and the department course for this patient. I have also personally directed, reviewed, and agree with the discharge instructions and disposition. Disposition/Present on Arrival - Present on Arrival Any Indicators Present on Arrival: Yes History of DVT/PE: No History of Uncontrolled Diabetes: Yes Urinary Catheter: No History of Decub. Ulcer: No History Surgical Site Infection Following: None - Disposition Have Diagnosis and Disposition been Completed?: No Diagnosis: Chest wall pain, Musculoskeletal back pain, Hyperglycemia Disposition Time: 19:00 Patient Problems: Current Active Problems Problem Status Onset Chest wall pain Acute Hyperglycemia Acute Musculoskeletal back pain Acute Condition: STABLE Discharge Instructions (ExitCare): Chest Pain (ED) Referrals: Christina Roy DO [Primary Care Provider] - Follow up with primary Forms: [employer] (French)
[2018-07-29 19:21] LABS: BASO # 0.02 K/mm3 (0.0-2.0); BASO % 0.2 % (0.0-3.0); EOS % 0.2 % (1.5-5.0); HEMOGLOBIN 11.6 g/dL (12.0-16.0); LYMPH # 2.5 (1.2-3.4); LYMPH % 24.8 % (22.0-35.0); MEAN CELL VOLUME 82.7 fl (80.0-105.0); MEAN CORPUSCULAR HEMOGLOBIN 26.7 pg (25.0-35.0); MEAN CORPUSCULAR HGB CONC 32.3 g/dl (31.0-37.0); MEAN PLATELET VOLUME 10.7 fl (7.0-11.0); MONO # 0.6 (0.1-0.6); RBC 4.34 10^6/uL (3.5-6.1); RED CELL DISTRIBUTION WIDTH 13.7 % (11.5-14.5)
[2018-07-29 19:30] LABS: ALB/GLOB RATIO 1.4 (1.1-1.8); ALBUMIN 4.7 g/dL (3.0-4.8); ALT/SGPT 10 U/L (7-56); AST/SGOT 15 U/L (14-36); BLOOD UREA NITROGEN 29 mg/dL (7-21); GFR NON-AFRICAN AMERICAN 47
[2018-07-29] MEDS ORDERED: Sodium Chloride 0.9% 1,000 ML IV STA (19:41)
[2018-07-29 22:00] LABS: TROPONIN I < 0.01 ng/mL
--- NOTE | 2018-07-29 23:08 | ED PDOC ---
Physical Exam Vital Signs Temp Pulse Resp BP Pulse Ox 07/29/18 20:06 98.6 F 91 H 18 144/79 100 07/29/18 17:57 98.6 F 87 18 117/81 100 Medical Decision Making ED Course and Treatment: 07/29/18 23:[address] Cano with patient pending troponin. Patient casey presented with chest pain and has a history of elevated troponin in the past. 07/29/18 23:07 Troponin negative. Patient reassessed and does not have any complaints at this time. She desires to go home. She is advised to follow up with her PCP and is given return protocol. Opportunity for questions given and answered. She is stable for discharge. - Lab Interpretations Lab Results: Troponin I < 0.01 ng/mL 07/29/18 19:17 Total Bilirubin 0.3 mg/dL (0.2-1.3) 07/29/18 19:17 AST 15 U/L (14-36) 07/29/18 19:17 ALT 10 U/L (7-56) 07/29/18 19:17 Alkaline Phosphatase 100 U/L (38-126) 07/29/18 19:17 Total Protein 8.0 g/dL (5.8-8.3) 07/29/18 19:17 Albumin 4.7 g/dL (3.0-4.8) 07/29/18 19:17 Globulin 3.3 gm/dL 07/29/18 19:17 Albumin/Globulin Ratio 1.4 (1.1-1.8) 07/29/18 19:17 - RAD Interpretation Radiology Orders: 07/29/18 18:56 CHEST TWO VIEWS (PA/LAT) [RAD] Stat - Medication Orders Current Medication Orders: Discontinued Medications Acetaminophen (Tylenol 325mg Tab) 975 mg PO STAT STA Stop: 07/29/18 20:34 Last Admin: 07/29/18 20:48 Dose: 975 mg MAR Pain/Vitals Document 07/29/18 20:48 LA (Rec: 07/29/18 20:49 LA [id number]) Pain Reassessment Is This A Pain ReAssessment? No Sleep Is patient sleeping during reassessment? No Presence of Pain Presence of Pain Yes Pain Scale Used Protocol: PSCALES Pain Scale Used Numeric Location Upper or Lower Lower Pain Location Body Site Back Intensity 7 Scale Used Numeric Pain Behavior Guarding Sodium Chloride (Sodium Chloride 0.9%) 1,000 mls @ 999 mls/hr IV .Q1H1M STA Stop: 07/29/18 20:41 Last Admin: 07/29/18 19:50 Dose: 999 mls/hr eMAR Start Stop Document 07/29/18 19:50 LA (Rec: 07/29/18 19:52 LA [id number]) Intravenous Solution Start Date 07/29/18 Start Time 19:52 End Date 07/29/18 End time 20:53 Total Infusion Time 61 Disposition/Present on Arrival - Present on Arrival Any Indicators Present on Arrival: Yes History of DVT/PE: No History of Uncontrolled Diabetes: Yes Urinary Catheter: No History of Decub. Ulcer: No History Surgical Site Infection Following: None - Disposition Have Diagnosis and Disposition been Completed?: Yes Diagnosis: Chest wall pain, Musculoskeletal back pain, Hyperglycemia Disposition: HOME/ ROUTINE Disposition Time: 23:08 Patient Plan: Discharge Condition: STABLE Discharge Instructions (ExitCare): Chest Pain (ED) Print Language: ANGUILLAN Additional Instructions: All medical record entries made by the Scribe were at my direction and personally dictated by me. I have reviewed the chart and agree that the record accurately reflects my personal performance of the history, physical exam, medical decision making, and the department course for this patient. I have also personally directed, reviewed, and agree with the discharge instructions and disposition. Please follow up with your PCP in 1 week Referrals: Christina Roy DO [Primary Care Provider] - Follow up with primary Forms: [employer] (Khmer)
[2018-07-29 23:10] VITALS: BP 140/73; PULSE 89
--- NOTE | 2018-07-30 08:33 | RAD ---
Date of service: 07/29/2018 HISTORY: chest pa COMPARISON: CT 04/18/2018 TECHNIQUE: Chest PA and lateral FINDINGS: LUNGS: There is a 14 mm nodule in the left upper lobe adjacent to the left heart border. This is unchanged. This was demonstrated on a prior CT and is located in the superior segment of the left lower lobe. PLEURA: No significant pleural effusion identified. No pneumothorax apparent. CARDIOVASCULAR: No aortic atherosclerotic calcification present. Normal cardiac size. No pulmonary vascular congestion. OSSEOUS STRUCTURES: No significant abnormalities. VISUALIZED UPPER ABDOMEN: Normal. OTHER FINDINGS: None. IMPRESSION: No active disease. No significant change in nodule in the superior segment of the left lower lobe
--- NOTE | 2018-07-30 21:45 | CARD ---
APPROVED REPORT Date of service: 07/29/2018 EKG Measurement Heart [id number] <Conclusion> Normal sinus rhythm Low voltage QRS Borderline ECG
== END 2018-07-29 23:09 | disposition home or self-care (01) ==
LOC: ED 17:56
DX: M54.9 Dorsalgia, unspecified (principal); R07.89 Other chest pain; E10.65 Type 1 diabetes mellitus with hyperglycemia; I10 Essential (primary) hypertension; I25.10 Atherosclerotic heart disease of native coronary artery without angina pectoris; J44.9 Chronic obstructive pulmonary disease, unspecified; Z87.891 Personal history of nicotine dependence
CPT/HCPCS: 71046; 80053; 81025; 84484; 85025; 93005; 96360; 99283; J7030

== ENCOUNTER 2018-09-22 10:23 | Observation (INO) | payer MEDICAID ==
[2018-09-22 10:27] VITALS: BMI 32.5
[2018-09-22 10:31] VITALS: RESP 18
[2018-09-22] MEDS ORDERED: Sodium Chloride 0.9% 1,000 ML IV STA ×3 (10:55→13:45)
[2018-09-22] MEDS ORDERED: Insulin Regular 1 UNITS/0.01 ML ML SC ONE ×2 (10:56→13:52)
--- NOTE | 2018-09-22 11:17 | ED PDOC ---
Arrival/HPI - General Chief Complaint: High Blood Sugar Time Seen by Provider: 09/22/18 10:31 Historian: Patient - History of Present Illness Narrative History of Present Illness (Text): 09/22/18 11:09 53 year old female with PMHx of DM on 25 units insulin x2 and Metformin 800mg, HTN, CAD x1 stent (last 3 years ago), anxiety, depression, COPD, and hypothyroidism, presents to the ED for evaluation of nausea, vomiting, abdominal pain and dizziness since this morning. Patient reportedly presented to Dr. Roy's office with the mentioned symptoms and was found to be hyperglycemic with BS in the 500s and was subsequently referred to the Ed for further management. Patient states her last insulin intake was yesterday without subsequent BS monitoring. She reports she monitored her BS 2 days ago, when her glucose level was in the 300s. Patient notes mild head pressure but denies any other associated somatic complaints. Patient denies any fevers, chills, headache, chest pain, shortness of breath, dyspnea on exertion, cough, diaphoresis, diarrhea, back pain, neck pain, or any other complaints. PMD: Dr. Roy Time/Duration: 24 hours Symptom Onset: Gradual Symptom Course: Unchanged Activities at Onset: Light Context: Other (Sent from Dr. Roy's office) Past Medical History - Provider Review Nursing Documentation Reviewed: Yes - Past History Past History: No Previous - Infectious Disease Hx of Infectious Diseases: None - Tetanus Immunization Tetanus Immunization: Unknown - Cardiac Hx Cardiac Disorders: Yes (CAD, mi) Hx SC: Yes Hx Hypertension: Yes Other/Comment: stents x 1 - Pulmonary Hx Respiratory Disorders: Yes Hx Asthma: Yes Hx Chronic Obstructive Pulmonary Disease (COPD): Yes - Neurological Hx Neurological Disorder: Yes Hx Dizziness: Yes - HEENT Hx HEENT Disorder: Yes (eyeglasses) - Renal Hx Renal Disorder: No (denies) - Endocrine/Metabolic Hx Endocrine Disorders: Yes Hx Diabetes Mellitus Type 1: Yes Hx Diabetes Mellitus Type 2: Yes Hx Hyperthyroidism: Yes - Hematological/Oncological Hx Blood Disorders: Yes Hx Anemia: Yes - Integumentary Hx Dermatological Disorder: No (denies) - Musculoskeletal/Rheumatological Hx Musculoskeletal Disorders: No (denies) Hx Falls: Yes - Gastrointestinal Hx Gastrointestinal Disorders: Yes (GASTROPARESIS,GASTRITIS,CONSTIPATION) Hx Gastroesophageal Reflux: Yes - Genitourinary/Gynecological Hx Genitourinary Disorders: No - Psychiatric Hx Psychophysiologic Disorder: Yes Hx Depression: Yes Hx Substance Use: No - Surgical History Hx Appendectomy: Yes Hx Cardiac Catheterization: Yes Hx Coronary Stent: Yes (x1) Hx Hysterectomy: (Tubal ligation) Hx Orthopedic Surgery: Yes (left foot) - Anesthesia Hx Anesthesia: Yes Hx Anesthesia Reactions: No Hx Malignant Hyperthermia: No - Suicidal Assessment Feels Threatened In Home Enviroment: No Family/Social History - Physician Review Nursing Documentation Reviewed: Yes Family/Social History: Unknown Family HX Smoking Status: Former Smoker Hx Alcohol Use: Yes (SOCIALLY) Hx Substance Use: No Hx Substance Use Treatment: No Allergies/Home Meds Allergies/Adverse Reactions: Allergies Sulfa (Sulfonamide Antibiotics) Allergy (Verified 09/22/18 14:44) FATIGUE Home Medications: Home Meds Medication Instructions Recorded Confirmed Amlodipine Besylate [Norvasc] 10 mg PO DAILY 07/17/15 09/22/18 Review of Systems - Physician Review All systems were reviewed & negative as marked: Yes - Review of Systems Constitutional: absent: Fevers Eyes: absent: Vision Changes Respiratory: absent: SOB, Cough Cardiovascular: absent: Chest Pain Gastrointestinal: Abdominal Pain, Nausea, Vomiting. absent: Diarrhea, Appetite Changes Genitourinary Female: absent: Dysuria, Urine Output Changes Musculoskeletal: absent: Back Pain, Neck Pain Skin: absent: Rash Neurological: Dizziness. absent: Headache, Focal Weakness, Gait Changes, Speech Changes, Facial Droop Endocrine: absent: Diaphoresis Psychiatric: absent: Anxiety Physical Exam Vital Signs Reviewed: Yes Vital Signs Temp Pulse Resp BP Pulse Ox 09/22/18 10:31 98.3 F 115 H 18 150/93 H 99 Temperature: Afebrile Blood Pressure: Normal Pulse: Tachycardic Respiratory Rate: Normal Appearance: Positive for: Well-Appearing, Non-Toxic, Comfortable Pain Distress: None Mental Status: Positive for: Alert and Oriented X 3 Finger Stick Blood Glucose: 500 - Systems Exam Head: Present: Atraumatic, Normocephalic Pupils: Present: PERRL Extroacular Muscles: Present: EOMI Conjunctiva: Present: Normal Neck: Present: Normal Range of Motion Respiratory/Chest: Present: Clear to Auscultation, Good Air Exchange. No: Res piratory Distress, Accessory Muscle Use Cardiovascular: Present: Regular Rate and Rhythm, Normal S1, S2. No: Murmurs Abdomen: Present: Tenderness (Mild epigastric tenderness). No: Distention, Peritoneal Signs Back: Present: Normal Inspection Upper Extremity: Present: Normal Inspection. No: Cyanosis, Edema Lower Extremity: Present: Normal Inspection. No: Edema Neurological: Present: GCS=15, Speech Normal Skin: Present: Warm, Dry, Normal Color. No: Rashes Psychiatric: Present: Alert, Oriented x 3, Normal Insight, Normal Concentration Medical Decision Making ED Course and Treatment: 09/22/18 11:19 Impression: 53 year old female presents to the ED for evaluation of nausea, vomiting, abdominal pain and dizziness. Differential Diagnosis included but are not limited to: -- Hyperglyecemia -- DKA Plan: -- VBG -- Labs -- Chest X-ray -- Insulin -- IV Fluids -- Blood Culture -- Urine Culture -- Urinalysis -- Reassess and disposition Prior Visits: Notes and results from previous visits were reviewed. Progress Notes: 09/22/18 13:[address] Finnegan (Hospitalist), who is aware and agrees with ED management plan, accepts patient admission to Observation under his service. - RAD Interpretation Narrative RAD Interpretations (Text): 09/22/18 12:35 Chest X-ray reviewed by radiologist, shows: FINDINGS: LUNGS: 15 mm nodule adjacent to the left heart border. This is unchanged. PLEURA: No significant pleural effusion identified, no pneumothorax apparent. CARDIOVASCULAR: No aortic atherosclerotic calcification present. Normal cardiac size. No pulmonary vascular congestion. OSSEOUS STRUCTURES: No significant abnormalities. VISUALIZED UPPER ABDOMEN: Normal. OTHER FINDINGS: None. IMPRESSION: 15 mm nodule adjacent to the left heart border. This is unchanged. Radiology Orders: 09/22/18 10:54 CHEST PORTABLE [RAD] Stat Station Baggage Porter: Radiologist - EKG Interpretation EKG Interpretation (Text): 09/22/18 10:45 EKG reviewed, shows Sinus Tachycardia @105 bpm, no ST elevations, no QT prolongation. Interpreted by ED Physician: Yes Type: 12 lead EKG - Medication Orders Current Medication Orders: Sodium Chloride (Sodium Chloride 0.9%) 1,000 mls @ 999 mls/hr IV .Q1H1M STA Stop: 09/22/18 11:55 Discontinued Medications Insulin Human Regular (Humulin R) 10 units SC ONCE ONE Stop: 09/22/18 10:57 - Scribe Statement The provider has reviewed the documentation as recorded by the Saraibe Elfego Blake. All medical record entries made by the Noel were at my direction and personally dictated by me. I have reviewed the chart and agree that the record accurately reflects my personal performance of the history, physical exam, medical decision making, and the department course for this patient. I have also personally directed, reviewed, and agree with the discharge instructions and disposition. Disposition/Present on Arrival - Present on Arrival History of DVT/PE: No History of Uncontrolled Diabetes: Yes Urinary Catheter: No History of Decub. Ulcer: No History Surgical Site Infection Following: None - Disposition Disposition Time: 13:52
[2018-09-22 11:29] LABS: VENOUS BLOOD GAS BASE EXCESS -4.1 mmol/L (0.0-2.0); VENOUS BLOOD GAS PO2 24 mm/Hg (30-55); VENOUS BLOOD PH 7.28 (7.32-7.43)
[2018-09-22 11:37] LABS: BASO # 0.02 K/mm3 (0.0-2.0); BASO % 0.2 % (0.0-3.0); EOS % 0.1 % (1.5-5.0); HEMOGLOBIN 12.2 g/dL (12.0-16.0); LYMPH # 2.1 (1.2-3.4); LYMPH % 21.3 % (22.0-35.0); MEAN CELL VOLUME 80.9 fl (80.0-105.0); MEAN CORPUSCULAR HEMOGLOBIN 25.9 pg (25.0-35.0); MONO # 0.4 (0.1-0.6); MONO % 4.2 % (1.0-6.0); RBC 4.71 10^6/uL (3.5-6.1); RED CELL DISTRIBUTION WIDTH 13.2 % (11.5-14.5); WHITE BLOOD COUNT 9.8 10^3/uL (4.5-11.0)
[2018-09-22 11:39] LABS: URINE BILIRUBIN NEGATIVE (NEGATIVE); URINE BLOOD NEGATIVE (NEGATIVE); URINE GLUCOSE (UA) >=1000 mg/dL (NEGATIVE); URINE LEUKOCYTE ESTERASE NEGATIVE Leu/uL (NEGATIVE); URINE PROTEIN NEGATIVE mg/dL (<30 mg/dL); URINE UROBILINOGEN 0.2 E.U./dL (<1 E.U./dL)
[2018-09-22 11:41] LABS: URINE APPEARANCE CLEAR (CLEAR); URINE COLOR YELLOW (YELLOW)
[2018-09-22 11:57] LABS: ALB/GLOB RATIO 1.5 (1.1-1.8); ALBUMIN 4.8 g/dL (3.0-4.8); ALT/SGPT 18 U/L (7-56); AST/SGOT 19 U/L (14-36); BLOOD UREA NITROGEN 30 mg/dL (7-21); CALCIUM 10.3 mg/dL (8.4-10.5); GFR NON-AFRICAN AMERICAN 58
--- NOTE | 2018-09-22 12:17 | RAD ---
Date of service: 09/22/2018 HISTORY: htn COMPARISON: 07/29/2018 TECHNIQUE: 1 view obtained. FINDINGS: LUNGS: 15 mm nodule adjacent to the left heart border. This is unchanged. PLEURA: No significant pleural effusion identified, no pneumothorax apparent. CARDIOVASCULAR: No aortic atherosclerotic calcification present. Normal cardiac size. No pulmonary vascular congestion. OSSEOUS STRUCTURES: No significant abnormalities. VISUALIZED UPPER ABDOMEN: Normal. OTHER FINDINGS: None. IMPRESSION: 15 mm nodule adjacent to the left heart border. This is unchanged.
[2018-09-22] MEDS ORDERED: Magnesium Sulfate 2 gm/50 ml 2 GM/50 ML BAG IVPB ONE (14:00)
--- NOTE | 2018-09-22 14:06 | CP.PCM.HP ---
<Keo Mitchell - Last Filed: 09/22/18 15:40> History of Present Illness - History of Present Illness History of Present Illness: PGY-2 medicine H&P for Dr Finnegan Mrs Colvin is a 53 year old female with PMHx of uncontrolled DM2 (last a1c 12.4), HTN, CAD x1 stent (last 3 years ago), anxiety, depression, COPD, hypothyroidism, presents for 2 days of dizziness, fatigue, nausea, vomiting, epigastric discomfort. She vomited 5x yesterday that was non-bloody, non- bilious. She states she takes lispro 25u ACTID and glargine 50u HS however she does not routinely check her sugars. Of note she did not take her morning lispro as she ran out of the medicine. She went to see her PMD earlier today (as this was her normally scheduled appt) and was found to have a blood sugar in the 500s and was directed to come to ED. Last episode of vomiting was this morning at 9AM. She denies fever, diarrhea, constipation, blurry vision, chest pain. She also c/o of epigastric pain - she states that her symptoms are worse after she eats fried foods. Denies chest pain, diaphoresis, palpitations, fevers, chills, urinary symptoms, leg swelling. In ED, patient afebrile, vitals stable, labs remarkable for BG 519. Patient reports that she has not taken her home insulin. Patient given 2 L NS bolus in ED, Repeat BG was 350s after insulin 10 units. Patient reports that she is hungry currently. Another 6u insulin given in ED. PMH: IDDM2 with medication non-compliance, HTN, CAD, Anxiety/Depression, COPD, and hypothyroidism PSH: Cardiac Stent x1 three years ago, Appendectomy, Tonsillectomy, Left Ankle surgery Family: Denies Social: Denies tobacco, alcohol or illicit drug use; Lives at home with palmer chirinos; Does not work. Allergies: Sulfa Home Medications: As per AUG PMD: Dr. Roy Cardio Tara Lopez Present on Admission - Present on Admission Any Indicators Present on Admission: No Past Patient History - Infectious Disease Hx of Infectious Diseases: None - Tetanus Immunizations Tetanus Immunization: Unknown - Past Medical History & Family History Past Medical History?: Yes - Past Social History Smoking Status: Former Smoker - CARDIAC Hx Cardiac Disorders: Yes (CAD, mi) Hx Heart Attack: Yes Hx Hypertension: Yes Other/Comment: stents x 1 - PULMONARY Hx Respiratory Disorders: Yes Hx Asthma: Yes Hx Chronic Obstructive Pulmonary Disease (COPD): Yes - NEUROLOGICAL Hx Neurological Disorder: Yes Hx Dizziness: Yes - HEENT Hx HEENT Problems: Yes (eyeglasses) - RENAL Hx Chronic Kidney Disease: No (denies) - ENDOCRINE/METABOLIC Hx Endocrine Disorders: Yes Hx Diabetes Mellitus Type 1: Yes Hx Diabetes Mellitus Type 2: Yes Hx Hyperthyroidism: Yes - HEMATOLOGICAL/ONCOLOGICAL Hx Blood Disorders: Yes Hx Anemia: Yes - INTEGUMENTARY Hx Dermatological Problems: No (denies) - MUSCULOSKELETAL/RHEUMATOLOGICAL Hx Musculoskeletal Disorders: No (denies) Hx Falls: Yes - GASTROINTESTINAL Hx Gastrointestinal Disorders: Yes (GASTROPARESIS,GASTRITIS,CONSTIPATION) Hx Gastroesophageal Reflux: Yes - GENITOURINARY/GYNECOLOGICAL Hx Genitourinary Disorders: No - PSYCHIATRIC Hx Psychophysiologic Disorder: Yes Hx Depression: Yes Hx Substance Use: No - SURGICAL HISTORY Hx Appendectomy: Yes Hx Cardiac Catheterization: Yes Hx Coronary Stent: Yes (x1) Hx Hysterectomy: (Tubal ligation) Hx Orthopedic Surgery: Yes (left foot) - ANESTHESIA Hx Anesthesia: Yes Hx Anesthesia Reactions: No Hx Malignant Hyperthermia: No Meds Allergies/Adverse Reactions: Allergies Allergy/AdvReac Type Severity Reaction Status Date / Time Sulfa (Sulfonamide Allergy FATIGUE Verified 09/22/18 14:44 Antibiotics) Physical Exam - Additional Findings Additional findings: - Constitutional Appears: Non-toxic, No Acute Distress - Head Exam Head Exam: ATRAUMATIC, NORMOCEPHALIC - Eye Exam Eye Exam: EOMI, Normal appearance, PERRL. absent: Conjunctival injection, Nystagmus, Periorbital tenderness, Scleral icterus Pupil Exam: NORMAL ACCOMODATION, PERRL. absent: Miosis, Mydriatic, Unequal - ENT Exam ENT Exam: Mucous Membranes Moist - Neck Exam Neck exam: Positive for: Full Rom - Respiratory Exam Respiratory Exam: Clear to Auscultation Bilateral, NORMAL BREATHING PATTERN. absent: Accessory Muscle Use, Chest Wall Tenderness, Decreased Breath Sounds, Wheezes, Respiratory Distress, Stridor - Cardiovascular Exam Cardiovascular Exam: REGULAR RHYTHM, RRR, +S1, +S2. absent: Diastolic murmur - GI/Abdominal Exam GI & Abdominal Exam: Hypoactive Bowel Sounds, Soft, Tenderness (TTP in epigatric region). absent: Firm, Guarding, Hernia, Mass, Rebound, Rigid - Rectal Exam Rectal Exam: Deferred - Extremities Exam Extremities exam: Positive for: normal inspection. Negative for: calf tenderness, joint swelling - Back Exam Back exam: NORMAL INSPECTION. absent: CVA tenderness (L), CVA tenderness (R) - Neurological Exam Neurological exam: Alert, CN II-XII Intact, Oriented x3 - Psychiatric Exam Psychiatric exam: Normal Affect, Normal Mood - Skin Skin Exam: Dry, Normal Color, Warm Results - Vital Signs Recent Vital Signs: Last Vital Signs Temp 98.3 F 09/22/18 10:31 Pulse 115 H 09/22/18 10:31 Resp 18 09/22/18 10:31 BP 150/93 H 09/22/18 10:31 Pulse Ox 99 09/22/18 10:31 - Labs Result Diagrams: 09/22/18 11:20 09/22/18 11:20 Labs: Laboratory Results - last 24 hr 09/22/18 09/22/18 09/22/18 10:33 11:20 11:20 WBC 9.8 RBC 4.71 Hgb 12.2 Hct 38.1 MCV 80.9 MCH 25.9 MCHC 32.0 RDW 13.2 Plt Count 154 MPV 12.0 H Neut % (Auto) 74.2 H Lymph % (Auto) 21.3 L [place] % (Auto) 4.2 Eos % (Auto) 0.1 L Baso % (Auto) 0.2 Lymph # (Auto) 2.1 [place] # (Auto) 0.4 Eos # (Auto) 0.0 Baso # (Auto) 0.02 Absolute Neuts (auto) 7.30 H pO2 VBG pH VBG pCO2 VBG HCO3 VBG Total CO2 VBG O2 Sat (Calc) VBG Base Excess VBG Potassium Sodium Chloride Glucose Lactate FiO2 Crit Value Called To Crit Value Called By Blood Gas Notified Time Potassium Carbon Dioxide Anion Gap BUN Creatinine Est GFR ( Amer) Est GFR (Non-Af Amer) POC Glucose (mg/dL) > 500 H* Random Glucose Calcium Magnesium Total Bilirubin AST ALT Alkaline Phosphatase Total Protein Albumin Globulin Albumin/Globulin Ratio Venous Blood Potassium Urine Color Yellow Urine Appearance Clear Urine pH 6.0 Ur Specific [place] <= 1.005 Urine Protein Negative Urine Glucose (UA) >=1000 Urine Ketones Negative Urine Blood Negative Urine Nitrate Negative Urine Bilirubin Negative Urine Urobilinogen 0.2 Ur Leukocyte Esterase Negative 09/22/18 09/22/18 09/22/18 11:20 11:20 11:29 WBC RBC Hgb Hct MCV MCH MCHC RDW Plt Count MPV Neut % (Auto) Lymph % (Auto) [place] % (Auto) Eos % (Auto) Baso % (Auto) Lymph # (Auto) [place] # (Auto) Eos # (Auto) Baso # (Auto) Absolute Neuts (auto) pO2 24 L VBG pH 7.28 L VBG pCO2 49.0 VBG HCO3 23.0 VBG Total CO2 24.5 VBG O2 Sat (Calc) 42.1 VBG Base Excess -4.1 L VBG Potassium 4.6 Sodium 133.0 134 Chloride 96.0 L 96 L Glucose 519 H* D Lactate 2.5 H FiO2 21.0 Crit Value Called To Pily youngblood Crit Value Called By Eli block Blood Gas Notified Time 1128 Potassium 4.7 Carbon Dioxide 24 Anion Gap 18 BUN 30 H Creatinine 1.0 Est GFR ( Amer) > 60 Est GFR (Non-Af Amer) 58 POC Glucose (mg/dL) > 500 H* Random Glucose 563 H* D Calcium 10.3 Magnesium 1.6 L Total Bilirubin 0.4 AST 19 ALT 18 Alkaline Phosphatase 102 Total Protein 8.0 Albumin 4.8 Globulin 3.2 Albumin/Globulin Ratio 1.5 Venous Blood Potassium 4.6 Urine Color Urine Appearance Urine pH Ur Specific [place] Urine Protein Urine Glucose (UA) Urine Ketones Urine Blood Urine Nitrate Urine Bilirubin Urine Urobilinogen Ur Leukocyte Esterase 09/22/18 12:50 WBC RBC Hgb Hct MCV MCH MCHC RDW Plt Count MPV Neut % (Auto) Lymph % (Auto) [place] % (Auto) Eos % (Auto) Baso % (Auto) Lymph # (Auto) [place] # (Auto) Eos # (Auto) Baso # (Auto) Absolute Neuts (auto) pO2 VBG pH VBG pCO2 VBG HCO3 VBG Total CO2 VBG O2 Sat (Calc) VBG Base Excess VBG Potassium Sodium Chloride Glucose Lactate FiO2 Crit Value Called To Crit Value Called By Blood Gas Notified Time Potassium Carbon Dioxide Anion Gap BUN Creatinine Est GFR ( Amer) Est GFR (Non-Af Amer) POC Glucose (mg/dL) 410 H* Random Glucose Calcium Magnesium Total Bilirubin AST ALT Alkaline Phosphatase Total Protein Albumin Globulin Albumin/Globulin Ratio Venous Blood Potassium Urine Color Urine Appearance Urine pH Ur Specific [place] Urine Protein Urine Glucose (UA) Urine Ketones Urine Blood Urine Nitrate Urine Bilirubin Urine Urobilinogen Ur Leukocyte Esterase Assessment & Plan - Assessment and Plan (Free Text) Plan: Mrs Colvin is a 53 year old female with PMHx of uncontrolled DM2 (last a1c 12.4), HTN, CAD x1 stent (last 3 years ago), anxiety, depression, COPD, hypothyroidism, presents for 2 days of dizziness, fatigue, nausea, vomiting, epigastric discomfort. Of note she did not take her morning lispro as she ran out of the medicine. #Uncontrolled DM2 -last a1c 12.4 in 03/2018 -home insulin regimen is lispro 25u ACTID and lantus 50u HS however patient recently ran out of her insulin and does not check BS's at home -resume insulin but at lower dose as patient not currently eating at her baseline due to nausea - lispro 10u ACTID and levemir 35u HS -con't home gabapentin 600mg po qd -diabetic education, finger checks achs, hypoglycemia protocol -f/u a1c -carb consistent diet - moderate - soft diet for now #Nausea/Vomiting -likely 2/2 uncontrolled DM2 and 2/2 diabetic gastroparesis which was diagnosed on EGD in 03/2018 -f/u urine and blood cx's -zofran 4mg ivp q6h prn #Epigastric Pain -likely 2/2 to gastritis as EGD in 03/2018 showed gastritis -patient at home occasionally takes pepcid for epigastric pain with relief -protonix 40mg po qd -carafate 1g suspension po bid #CAD s/p 1 stent 2015 -ekg shows sinus tachy -continue home aspirin 81mg po qd -continue home plavix 75mg po qd -continue home med lipitor 40mg po din -continue home med lopressor 50mg po bid #HTN -currently BP well controlled -patient not on ulysses-i however we will start lisinopril 5mg po qd given her DM -hold home amlodipine 10mg for now -continue home med lopressor 50mg po bid #Hypothyroidism -per PMD, patient currently not on synthroid however per chart review patient was on synthroid in past -f/u TSH -restart synthroid if indicated #Asthma -patient occasionally uses albuterol inhaler at home; denies hx of COPD; does not know if she was diagnosed with asthma or COPD in past -duoneb q6h prn for shortness of breath PPX -lovenox 40mg sc qd -SCDs Seen and discussed with Dr Finnegan Decision To Admit - Pt Status Changed To: Hospital Disposition Of: Observation - . Bed Request Type: Remote Telemetry <Rhett Finnegan - Last Filed: 09/23/18 15:05> Results - Vital Signs Recent Vital Signs: Last Vital Signs Temp 97.7 F 09/23/18 06:00 Pulse 80 09/23/18 09:11 Resp 18 09/23/18 06:00 BP 117/76 09/23/18 09:11 Pulse Ox 97 09/23/18 06:00 - Labs Result Diagrams: 09/23/18 07:15 09/23/18 07:15 Labs: Laboratory Results - last 24 hr 09/22/18 09/22/18 09/22/18 15:42 16:32 21:25 WBC RBC Hgb Hct MCV MCH MCHC RDW Plt Count MPV Neut % (Auto) Lymph % (Auto) [place] % (Auto) Eos % (Auto) Baso % (Auto) Lymph # (Auto) [place] # (Auto) Eos # (Auto) Baso # (Auto) Absolute Neuts (auto) pO2 68 H VBG pH 7.37 VBG pCO2 37.0 L VBG HCO3 21.4 VBG Total CO2 22.5 VBG O2 Sat (Calc) 96.2 H VBG Base Excess -3.4 L VBG Potassium 3.6 Sodium 139.0 Chloride 109.0 H Glucose 236 H Lactate 0.8 FiO2 21.0 Potassium Carbon Dioxide Anion Gap BUN Creatinine Est GFR ( Amer) Est GFR (Non-Af Amer) POC Glucose (mg/dL) 202 H 114 H Random Glucose Hemoglobin A1c Calcium Total Bilirubin AST ALT Alkaline Phosphatase Total Protein Albumin Globulin Albumin/Globulin Ratio TSH 3rd Generation Venous Blood Potassium 3.6 09/23/18 09/23/18 09/23/18 02:53 07:03 07:15 WBC 6.8 D RBC 4.28 Hgb 10.9 L Hct 34.5 L MCV 80.6 MCH 25.5 MCHC 31.6 RDW 13.6 Plt Count 115 L MPV 11.3 H Neut % (Auto) 65.5 Lymph % (Auto) 27.8 [place] % (Auto) 6.3 H Eos % (Auto) 0.1 L Baso % (Auto) 0.3 Lymph # (Auto) 1.9 [place] # (Auto) 0.4 Eos # (Auto) 0.0 Baso # (Auto) 0.02 Absolute Neuts (auto) 4.44 pO2 VBG pH VBG pCO2 VBG HCO3 VBG Total CO2 VBG O2 Sat (Calc) VBG Base Excess VBG Potassium Sodium Chloride Glucose Lactate FiO2 Potassium Carbon Dioxide Anion Gap BUN Creatinine Est GFR ( Amer) Est GFR (Non-Af Amer) POC Glucose (mg/dL) 274 H 226 H Random Glucose Hemoglobin A1c Calcium Total Bilirubin AST ALT Alkaline Phosphatase Total Protein Albumin Globulin Albumin/Globulin Ratio TSH 3rd Generation Venous Blood Potassium 09/23/18 09/23/18 09/23/18 07:15 07:15 07:15 WBC RBC Hgb Hct MCV MCH MCHC RDW Plt Count MPV Neut % (Auto) Lymph % (Auto) [place] % (Auto) Eos % (Auto) Baso % (Auto) Lymph # (Auto) [place] # (Auto) Eos # (Auto) Baso # (Auto) Absolute Neuts (auto) pO2 VBG pH VBG pCO2 VBG HCO3 VBG Total CO2 VBG O2 Sat (Calc) VBG Base Excess VBG Potassium Sodium 138 Chloride 106 Glucose Lactate FiO2 Potassium 4.0 Carbon Dioxide 24 Anion Gap 11 BUN 17 Creatinine 0.8 Est GFR ( Amer) > 60 Est GFR (Non-Af Amer) > 60 POC Glucose (mg/dL) Random Glucose 239 H Hemoglobin A1c 12.7 H Calcium 8.9 Total Bilirubin 0.3 AST 16 ALT 14 Alkaline Phosphatase 77 Total Protein 6.9 Albumin 3.6 Globulin 3.3 Albumin/Globulin Ratio 1.1 TSH 3rd Generation 4.68 Venous Blood Potassium 09/23/18 11:09 WBC RBC Hgb Hct MCV MCH MCHC RDW Plt Count MPV Neut % (Auto) Lymph % (Auto) [place] % (Auto) Eos % (Auto) Baso % (Auto) Lymph # (Auto) [place] # (Auto) Eos # (Auto) Baso # (Auto) Absolute Neuts (auto) pO2 VBG pH VBG pCO2 VBG HCO3 VBG Total CO2 VBG O2 Sat (Calc) VBG Base Excess VBG Potassium Sodium Chloride Glucose Lactate FiO2 Potassium Carbon Dioxide Anion Gap BUN Creatinine Est GFR ( Amer) Est GFR (Non-Af Amer) POC Glucose (mg/dL) 290 H Random Glucose Hemoglobin A1c Calcium Total Bilirubin AST ALT Alkaline Phosphatase Total Protein Albumin Globulin Albumin/Globulin Ratio TSH 3rd Generation Venous Blood Potassium Attending/Attestation - Attestation I have personally seen and examined this patient.: Yes I have fully participated in the care of the patient.: Yes I have reviewed all pertinent clinical information: Yes Notes (Text): 09/23/18 15:03 Medical record note made by the resident after discussion with my direction and input after the patient was personally seen and examined by me. I have reviewed the chart and agree that the record accurately reflects by personal performance of the history, physical exam, data review, and medical decision-making, in the course for the patient. I have also personally directed the plan of care. 53 year old female with PMH of uncontrolled DM2 (last a1c 12.4), HTN, CAD x1 stent (last 3 years ago), anxiety, depression, COPD, hypothyroidism and non compliance with medication is admitted with fatigue, nausea, vomiting, epigastric discomfort and uncontrolled DM. Patient was not taking her insulin.Nausea and vomiting is due to gastropresis. We will advance diet gradually. We will adjust insulin regimen. Management plan was discussed in detail with patient. Education was provided. 09/23/18 15:05
[2018-09-22] MEDS ORDERED: Albuterol-Ipratrop 3 mg / 0.5 (3 ml) UD IH PRN (15:44)
[2018-09-22 15:45] LABS: VENOUS BLOOD GAS BASE EXCESS -3.4 mmol/L (0.0-2.0); VENOUS BLOOD GAS PO2 68 mm/Hg (30-55); VENOUS BLOOD PH 7.37 (7.32-7.43)
[2018-09-22] MEDS ORDERED: Insulin Lispro 1 UNITS/0.01 ML SC SCH (16:30)
[2018-09-22] MEDS: Insulin Lispro 1 UNITS/0.01 ML SC SCH (17:02)
[2018-09-22] MEDS: Insulin Reg-MEDIUM-Coverage SC SCH ×2 (17:03→21:52)
[2018-09-22] MEDS: Sucralfate 1 gm/10 ml Oral Susp UD PO SCH (17:06)
[2018-09-22] MEDS: Pantoprazole 40 mg EC Tab PO SCH (17:12)
[2018-09-22] MEDS ORDERED: Influenza Vaccine 60 mcg/0.5 mL SYR (4YR UP) IM ONE (19:00)
[2018-09-22] MEDS ORDERED: Pneumococcal 23-Valent Vaccine IM ONE (19:00)
--- NOTE | 2018-09-22 19:11 | CARD ---
APPROVED REPORT Date of service: 09/22/2018 EKG Measurement Heart [id number] <Conclusion> Poor data quality, interpretation may be adversely affected Sinus tachycardia Otherwise normal ECG
[2018-09-22] MEDS ORDERED: Insulin Detemir 100 units/ml Vial (Levemir) SC SCH ×2 (22:00)
[2018-09-23] MEDS ORDERED: Levothyroxine 100 MCG TAB PO SCH (07:30)
[2018-09-23 08:03] LABS: BASO # 0.02 K/mm3 (0.0-2.0); BASO % 0.3 % (0.0-3.0); EOS % 0.1 % (1.5-5.0); HEMOGLOBIN 10.9 g/dL (12.0-16.0); LYMPH # 1.9 (1.2-3.4); LYMPH % 27.8 % (22.0-35.0); MEAN CELL VOLUME 80.6 fl (80.0-105.0); MEAN CORPUSCULAR HEMOGLOBIN 25.5 pg (25.0-35.0); MEAN CORPUSCULAR HGB CONC 31.6 g/dl (31.0-37.0); MEAN PLATELET VOLUME 11.3 fl (7.0-11.0); MONO # 0.4 (0.1-0.6); MONO % 6.3 % (1.0-6.0); RBC 4.28 10^6/uL (3.5-6.1); RED CELL DISTRIBUTION WIDTH 13.6 % (11.5-14.5); WHITE BLOOD COUNT 6.8 10^3/uL (4.5-11.0)
[2018-09-23 08:19] LABS: ALB/GLOB RATIO 1.1 (1.1-1.8); ALBUMIN 3.6 g/dL (3.0-4.8); ALT/SGPT 14 U/L (7-56); AST/SGOT 16 U/L (14-36); BLOOD UREA NITROGEN 17 mg/dL (7-21); CALCIUM 8.9 mg/dL (8.4-10.5); GFR NON-AFRICAN AMERICAN > 60
[2018-09-23] MEDS: Insulin Lispro 1 UNITS/0.01 ML SC SCH ×2 (08:26→11:58)
[2018-09-23] MEDS: Insulin Reg-MEDIUM-Coverage SC SCH ×2 (08:26→11:58)
[2018-09-23 08:49] VITALS: BP 117/76; PULSE 80; TEMP 97.7; O2SAT 97
[2018-09-23] MEDS: Sucralfate 1 gm/10 ml Oral Susp UD PO SCH (09:09)
[2018-09-23] MEDS: Pantoprazole 40 mg EC Tab PO SCH (09:11)
[2018-09-23] MEDS ORDERED: Enoxaparin 40 mg Syringe SC SCH (10:00)
--- NOTE | 2018-09-23 12:57 | CP.PCM.DIS ---
<Keo Mitchell - Last Filed: 09/23/18 12:48> Provider - Provider Date of Admission: 09/22/18 13:53 Attending physician: Rhett Finnegan MD Primary care physician: Christina Roy DO Consults: 09/22/18 15:24 Diabetic Education Referral Routine Comment: Physician Instructions: Reason For Exam: a1c 12.4; patient doesn't check BS; ran out of med 09/22/18 19:00 Inpatient SECURITY TEAM LEAD Core Measures Referral Routine Comment: Physician Instructions: Reason For Exam: EVALUATION Transition In Care/Readmission Reduction Routine Comment: Physician Instructions: Reason For Exam: EVALUATION Time Spent in preparation of Discharge (in minutes): 32 Diagnosis - Discharge Diagnosis (1) Hyperglycemia Status: Acute Priority: High Hospital Course - Lab Results Lab Results: Micro Results 09/22/18 11:50 Blood Blood Culture - Preliminary NO GROWTH AFTER 24 HOURS 09/22/18 11:20 Blood Blood Culture - Preliminary NO GROWTH AFTER 24 HOURS 09/22/18 11:20 Urine Random Urine Culture - Final Strep Agalactiae Group B Most Recent Lab Values WBC 6.8 10^3/uL (4.5-11.0) D 09/23/18 07:15 RBC 4.28 10^6/uL (3.5-6.1) 09/23/18 07:15 Hgb 10.9 g/dL (12.0-16.0) L 09/23/18 07:15 Hct 34.5 % (36.0-48.0) L 09/23/18 07:15 MCV 80.6 fl (80.0-105.0) 09/23/18 07:15 MCH 25.5 pg (25.0-35.0) 09/23/18 07:15 MCHC 31.6 g/dl (31.0-37.0) 09/23/18 07:15 RDW 13.6 % (11.5-14.5) 09/23/18 07:15 Plt Count 115 10^3/uL (120.0-450.0) L 09/23/18 07:15 MPV 11.3 fl (7.0-11.0) H 09/23/18 07:15 Neut % (Auto) 65.5 % (50.0-68.0) 09/23/18 07:15 Lymph % (Auto) 27.8 % (22.0-35.0) 09/23/18 07:15 [place] % (Auto) 6.3 % (1.0-6.0) H 09/23/18 07:15 Eos % (Auto) 0.1 % (1.5-5.0) L 09/23/18 07:15 Baso % (Auto) 0.3 % (0.0-3.0) 09/23/18 07:15 Lymph # (Auto) 1.9 (1.2-3.4) 09/23/18 07:15 [place] # (Auto) 0.4 (0.1-0.6) 09/23/18 07:15 Eos # (Auto) 0.0 (0.0-0.7) 09/23/18 07:15 Baso # (Auto) 0.02 K/mm3 (0.0-2.0) 09/23/18 07:15 Absolute Neuts (auto) 4.44 (1.4-6.5) 09/23/18 07:15 pO2 68 mm/Hg (30-55) H 09/22/18 15:42 VBG pH 7.37 (7.32-7.43) 09/22/18 15:42 VBG pCO2 37.0 (40-60) L 09/22/18 15:42 VBG HCO3 21.4 mmol/l (21-28) 09/22/18 15:42 VBG Total CO2 22.5 mmol.L (22-28) 09/22/18 15:42 VBG O2 Sat (Calc) 96.2 % (40-65) H 09/22/18 15:42 VBG Base Excess -3.4 mmol/L (0.0-2.0) L 09/22/18 15:42 VBG Potassium 3.6 mmol/L (3.6-5.2) 09/22/18 15:42 Sodium 139.0 mmol/L (132-148) 09/22/18 15:42 Chloride 109.0 mmol/L (98-107) H 09/22/18 15:42 Glucose 236 mg/dl (65-105) H 09/22/18 15:42 Lactate 0.8 mmol/L (0.7-2.1) 09/22/18 15:42 FiO2 21.0 % 09/22/18 15:42 Crit Value Called To Pily youngblood 09/22/18 11:20 Crit Value Called By Eli block 09/22/18 11:20 Blood Gas Notified Time 1128 09/22/18 11:20 Sodium 138 mmol/L (132-148) 09/23/18 07:15 Potassium 4.0 mmol/L (3.6-5.0) 09/23/18 07:15 Chloride 106 mmol/L (98-107) 09/23/18 07:15 Carbon Dioxide 24 mmol/L (21-33) 09/23/18 07:15 Anion Gap 11 (10-20) 09/23/18 07:15 BUN 17 mg/dL (7-21) 09/23/18 07:15 Creatinine 0.8 mg/dl (0.7-1.2) 09/23/18 07:15 Est GFR ( Amer) > 60 09/23/18 07:15 Est GFR (Non-Af Amer) > 60 09/23/18 07:15 POC Glucose (mg/dL) 290 mg/dL (65-110) H 09/23/18 11:09 Random Glucose 239 mg/dL (70-110) H 09/23/18 07:15 Calcium 8.9 mg/dL (8.4-10.5) 09/23/18 07:15 Magnesium 1.6 mg/dL (1.7-2.2) L 09/22/18 11:20 Total Bilirubin 0.3 mg/dL (0.2-1.3) 09/23/18 07:15 AST 16 U/L (14-36) 09/23/18 07:15 ALT 14 U/L (7-56) 09/23/18 07:15 Alkaline Phosphatase 77 U/L (38-126) 09/23/18 07:15 Total Protein 6.9 g/dL (5.8-8.3) 09/23/18 07:15 Albumin 3.6 g/dL (3.0-4.8) 09/23/18 07:15 Globulin 3.3 gm/dL 09/23/18 07:15 Albumin/Globulin Ratio 1.1 (1.1-1.8) 09/23/18 07:15 TSH 3rd Generation 4.68 mIU/mL (0.46-4.68) 09/23/18 07:15 Venous Blood Potassium 3.6 mmol/L (3.6-5.2) 09/22/18 15:42 Urine Color Yellow (YELLOW) 09/22/18 11:20 Urine Appearance Clear (CLEAR) 09/22/18 11:20 Urine pH 6.0 (4.7-8.0) 09/22/18 11:20 Ur Specific Redig <= 1.005 (1.005-1.035) 09/22/18 11:20 Urine Protein Negative mg/dL (<30 mg/dL) 09/22/18 11:20 Urine Glucose (UA) >=1000 mg/dL (NEGATIVE) 09/22/18 11:20 Urine Ketones Negative mg/dL (NEGATIVE) 09/22/18 11:20 Urine Blood Negative (NEGATIVE) 09/22/18 11:20 Urine Nitrate Negative (NEGATIVE) 09/22/18 11:20 Urine Bilirubin Negative (NEGATIVE) 09/22/18 11:20 Urine Urobilinogen 0.2 E.U./dL (<1 E.U./dL) 09/22/18 11:20 Ur Leukocyte Esterase Negative Michael/uL (NEGATIVE) 09/22/18 11:20 - Hospital Course Hospital Course: Mrs Colvin is a 53 year old female with PMHx of uncontrolled DM2 (last a1c 12.4), HTN, CAD x1 stent (last 3 years ago), anxiety, depression, COPD, hypothyroidism, presents for 2 days of dizziness, fatigue, nausea, vomiting, epigastric discomfort. She vomited 5x yesterday that was non-bloody, non- bilious. She states she takes lispro 25u ACTID and glargine 50u HS however she does not routinely check her sugars. Of note she did not take her morning lispro as she ran out of the medicine. She went to see her PMD earlier today (as this was her normally scheduled appt) and was found to have a blood sugar in the 500s and was directed to come to ED. Last episode of vomiting was this morning at 9AM. She denies fever, diarrhea, constipation, blurry vision, chest pain. She also c/o of epigastric pain - she states that her symptoms are worse after she eats fried foods. Denies chest pain, diaphoresis, palpitations, fevers, chills, urinary symptoms, leg swelling. In ED, patient afebrile, vitals stable, labs remarkable for BG 519. Patient reports that she has not taken her home insulin. Patient given 2 L NS bolus in ED, Repeat BG was 350s after insulin 10 units. Patient reports that she is hungry currently. Another 6u insulin given in ED. PMH: IDDM2 with medication non-compliance, HTN, CAD, Anxiety/Depression, COPD, and hypothyroidism PSH: Cardiac Stent x1 three years ago, Appendectomy, Tonsillectomy, Left Ankle surgery Family: Denies Social: Denies tobacco, alcohol or illicit drug use; Lives at home with daughter; Does not work. Allergies: Sulfa Home Medications: As per AUG PMD: Dr. Roy Cardio: [facility] GI: [facility] COURSE: Mrs Colvin was admitted for hyperglycemia 2/2 her running out of her insulin - her sx of n/v were likely 2/2 to hyperglycemia. After fluid and insulin administration her glucose quickly improved. We reduced her normal insulin regimen to half dose as she wasn't initially eating. She began to tolerate diet and thus we increased her insulin regimen (lispro 12u and lantus 40u) - this is the regimen she will be discharged on. Her urine culture grew strep B agalactae however as this bacteria is a common urethra colonizer and given she was asymptomatic with normal wbc, afebrile, she did not warrant antibiotic administration. She also has GERD and recent EGD showed gastritis - to treat this we gave her protonix and carafate. Her chronic conditions were managed by continuing her home medications. Medications were delivered to bedside and importance of not running out of insulin was reenforced. Discharge Exam - Additional Findings Additional findings: - Constitutional Appears: Non-toxic, No Acute Distress - Head Exam Head Exam: ATRAUMATIC, NORMOCEPHALIC - Eye Exam Eye Exam: EOMI, Normal appearance, PERRL. absent: Conjunctival injection, Nystagmus, Periorbital tenderness, Scleral icterus Pupil Exam: NORMAL ACCOMODATION, PERRL. absent: Miosis, Mydriatic, Unequal - ENT Exam ENT Exam: Mucous Membranes Moist - Neck Exam Neck exam: Positive for: Full Rom - Respiratory Exam Respiratory Exam: Clear to Auscultation Bilateral, NORMAL BREATHING PATTERN. absent: Accessory Muscle Use, Chest Wall Tenderness, Decreased Breath Sounds, Wheezes, Respiratory Distress, Stridor - Cardiovascular Exam Cardiovascular Exam: REGULAR RHYTHM, RRR, +S1, +S2. absent: Diastolic murmur - GI/Abdominal Exam GI & Abdominal Exam: Normoactive Bowel Sounds, Soft, Tenderness (TTP in epigatric region improved since admission). absent: Firm, Guarding, Hernia, Mass, Rebound, Rigid - Rectal Exam Rectal Exam: Deferred - Extremities Exam Extremities exam: Positive for: normal inspection. Negative for: calf tenderness, joint swelling - Back Exam Back exam: NORMAL INSPECTION. absent: CVA tenderness (L), CVA tenderness (R) - Neurological Exam Neurological exam: Alert, CN II-XII Intact, Oriented x3 - Psychiatric Exam Psychiatric exam: Normal Affect, Normal Mood - Skin Skin Exam: Dry, Normal Color, Warm Discharge Plan - Discharge Medications Prescriptions: Aspirin [Ecotrin] 81 mg PO DAILY #30 tabec Atorvastatin [Lipitor] 40 mg PO DAILY #30 tab Clopidogrel [Plavix] 75 mg PO DAILY #30 tab Gabapentin [Neurontin] 600 mg PO DAILY #30 tab Insulin Glargine,Hum.rec.anlog [Basaglar Kwikpen U-100] 40 unit SQ HS #1 insuln.pen Insulin Lispro [Admelog] 12 unit SQ ACTID #1 vial Lisinopril [Zestril] 5 mg PO DAILY #30 tab MetFORMIN [glucoPHAGE] 850 mg PO BID #60 tab Metoprolol Tartrate [Lopressor] 50 mg PO BID #60 tab Pantoprazole [Protonix EC Tab] 40 mg PO DAILY #30 ect Sucralfate [Carafate Oral Susp] 1 gm PO BID #1 udc - Follow Up Plan Condition: GOOD Disposition: HOME/ ROUTINE Instructions: Acute Abdomen (Belly Pain), Adult (DC), Hyperglycemia, Adult (DC), The ABCs of Diabetes Additional Instructions: Please follow-up with your PMD, Dr Christina Roy, within 7 days of discharge. Please follow-up with echo technician, Dr Leslie Hermosillo regarding your diabetes. You saw her in the past. Please make sure going forward you write down your sugars in a diary. Make sure your primary doctor and Dr Hermosillo see the diary. Please make sure your meals are consistent in portion size and please do not skip meals as this will affect your blood sugars. Going forward please follow the following medication regimen: 1. Aspirin 81 once a day at 10AM 2. Atorvastatin 40mg once at bedtime 3. Clopidogrel 75mg once a day 10AM 4. Gabapentin 600mg once a day at 2PM 5. Lisinopril 5mg once a day at 10AM 6. Metformin 850mg twice a day at 10AM and 6PM 7. Protonix 40mg once a daily upon waking 8. Carafate 1g twice daily before breakfast and before dinner Going forward please follow the following insulin regimen: 1. Insulin Glargine 40 units before bedtime 2. Insulin Lispro 12 units before breakfast, lunch and dinner (please do your best not to skip meals) Additionally, you were found to have a 15mm lung nodule that is unchanged from prior imaging - please bring this up with your PMD as you may need to follow this nodule up with additional imaging 6-12 months from now. If symptoms return please promptly go to your nearest emergency department. Referrals: Leslie Hermosillo MD [Medical Doctor] - Christina Roy DO [Primary Care Provider] - <Rhett Finnegan - Last Filed: 09/23/18 15:01> Provider - Provider Date of Admission: 09/22/18 13:53 Attending physician: Rhett Finnegan MD Primary care physician: Christina Roy DO Consults: 09/22/18 15:24 Diabetic Education Referral Routine Comment: Physician Instructions: Reason For Exam: a1c 12.4; patient doesn't check BS; ran out of med 09/22/18 19:00 Inpatient SECURITY TEAM LEAD Core Measures Referral Routine Comment: Physician Instructions: Reason For Exam: EVALUATION Transition In Care/Readmission Reduction Routine Comment: Physician Instructions: Reason For Exam: EVALUATION Hospital Course - Lab Results Lab Results: Micro Results 09/22/18 11:50 Blood Blood Culture - Preliminary NO GROWTH AFTER 24 HOURS 09/22/18 11:20 Blood Blood Culture - Preliminary NO GROWTH AFTER 24 HOURS 09/22/18 11:20 Urine Random Urine Culture - Final Strep Agalactiae Group B Most Recent Lab Values WBC 6.8 10^3/uL (4.5-11.0) D 09/23/18 07:15 RBC 4.28 10^6/uL (3.5-6.1) 09/23/18 07:15 Hgb 10.9 g/dL (12.0-16.0) L 09/23/18 07:15 Hct 34.5 % (36.0-48.0) L 09/23/18 07:15 MCV 80.6 fl (80.0-105.0) 09/23/18 07:15 MCH 25.5 pg (25.0-35.0) 09/23/18 07:15 MCHC 31.6 g/dl (31.0-37.0) 09/23/18 07:15 RDW 13.6 % (11.5-14.5) 09/23/18 07:15 Plt Count 115 10^3/uL (120.0-450.0) L 09/23/18 07:15 MPV 11.3 fl (7.0-11.0) H 09/23/18 07:15 Neut % (Auto) 65.5 % (50.0-68.0) 09/23/18 07:15 Lymph % (Auto) 27.8 % (22.0-35.0) 09/23/18 07:15 [place] % (Auto) 6.3 % (1.0-6.0) H 09/23/18 07:15 Eos % (Auto) 0.1 % (1.5-5.0) L 09/23/18 07:15 Baso % (Auto) 0.3 % (0.0-3.0) 09/23/18 07:15 Lymph # (Auto) 1.9 (1.2-3.4) 09/23/18 07:15 [place] # (Auto) 0.4 (0.1-0.6) 09/23/18 07:15 Eos # (Auto) 0.0 (0.0-0.7) 09/23/18 07:15 Baso # (Auto) 0.02 K/mm3 (0.0-2.0) 09/23/18 07:15 Absolute Neuts (auto) 4.44 (1.4-6.5) 09/23/18 07:15 pO2 68 mm/Hg (30-55) H 09/22/18 15:42 VBG pH 7.37 (7.32-7.43) 09/22/18 15:42 VBG pCO2 37.0 (40-60) L 09/22/18 15:42 VBG HCO3 21.4 mmol/l (21-28) 09/22/18 15:42 VBG Total CO2 22.5 mmol.L (22-28) 09/22/18 15:42 VBG O2 Sat (Calc) 96.2 % (40-65) H 09/22/18 15:42 VBG Base Excess -3.4 mmol/L (0.0-2.0) L 09/22/18 15:42 VBG Potassium 3.6 mmol/L (3.6-5.2) 09/22/18 15:42 Sodium 139.0 mmol/L (132-148) 09/22/18 15:42 Chloride 109.0 mmol/L (98-107) H 09/22/18 15:42 Glucose 236 mg/dl (65-105) H 09/22/18 15:42 Lactate 0.8 mmol/L (0.7-2.1) 09/22/18 15:42 FiO2 21.0 % 09/22/18 15:42 Crit Value Called To Pily youngblood 09/22/18 11:20 Crit Value Called By Eli block 09/22/18 11:20 Blood Gas Notified Time 1128 09/22/18 11:20 Sodium 138 mmol/L (132-148) 09/23/18 07:15 Potassium 4.0 mmol/L (3.6-5.0) 09/23/18 07:15 Chloride 106 mmol/L (98-107) 09/23/18 07:15 Carbon Dioxide 24 mmol/L (21-33) 09/23/18 07:15 Anion Gap 11 (10-20) 09/23/18 07:15 BUN 17 mg/dL (7-21) 09/23/18 07:15 Creatinine 0.8 mg/dl (0.7-1.2) 09/23/18 07:15 Est GFR ( Amer) > 60 09/23/18 07:15 Est GFR (Non-Af Amer) > 60 09/23/18 07:15 POC Glucose (mg/dL) 290 mg/dL (65-110) H 09/23/18 11:09 Random Glucose 239 mg/dL (70-110) H 09/23/18 07:15 Hemoglobin A1c 12.7 % (4.2-6.5) H 09/23/18 07:15 Calcium 8.9 mg/dL (8.4-10.5) 09/23/18 07:15 Magnesium 1.6 mg/dL (1.7-2.2) L 09/22/18 11:20 Total Bilirubin 0.3 mg/dL (0.2-1.3) 09/23/18 07:15 AST 16 U/L (14-36) 09/23/18 07:15 ALT 14 U/L (7-56) 09/23/18 07:15 Alkaline Phosphatase 77 U/L (38-126) 09/23/18 07:15 Total Protein 6.9 g/dL (5.8-8.3) 09/23/18 07:15 Albumin 3.6 g/dL (3.0-4.8) 09/23/18 07:15 Globulin 3.3 gm/dL 09/23/18 07:15 Albumin/Globulin Ratio 1.1 (1.1-1.8) 09/23/18 07:15 TSH 3rd Generation 4.68 mIU/mL (0.46-4.68) 09/23/18 07:15 Venous Blood Potassium 3.6 mmol/L (3.6-5.2) 09/22/18 15:42 Urine Color Yellow (YELLOW) 09/22/18 11:20 Urine Appearance Clear (CLEAR) 09/22/18 11:20 Urine pH 6.0 (4.7-8.0) 09/22/18 11:20 Ur Specific Redig <= 1.005 (1.005-1.035) 09/22/18 11:20 Urine Protein Negative mg/dL (<30 mg/dL) 09/22/18 11:20 Urine Glucose (UA) >=1000 mg/dL (NEGATIVE) 09/22/18 11:20 Urine Ketones Negative mg/dL (NEGATIVE) 09/22/18 11:20 Urine Blood Negative (NEGATIVE) 09/22/18 11:20 Urine Nitrate Negative (NEGATIVE) 09/22/18 11:20 Urine Bilirubin Negative (NEGATIVE) 09/22/18 11:20 Urine Urobilinogen 0.2 E.U./dL (<1 E.U./dL) 09/22/18 11:20 Ur Leukocyte Esterase Negative Michael/uL (NEGATIVE) 09/22/18 11:20 Attending/Attestation - Attestation I have personally seen and examined this patient.: Yes I have fully participated in the care of the patient.: Yes I have reviewed all pertinent clinical information, including history, physical exam and plan: Yes Notes (Text): 09/23/18 14:57 Medical record note made by the resident after discussion with my direction and input after the patient was personally seen and examined by me. I have reviewed the chart and agree that the record accurately reflects by personal performance of the history, physical exam, data review, and medical decision-making, in the course for the patient. I have also personally directed the plan of care. 53 year old female with PMH of uncontrolled DM2 (last a1c 12.4), HTN, CAD x1 stent (last 3 years ago), anxiety, depression, COPD, hypothyroidism and non compliance with medication was admitted with fatigue, nausea, vomiting, epigastric discomfort and uncontrolled DM. Patient was not taking her insulin.Patient insulin regimen was adjusted.Nausea and vomiting is due to Peptic ulcer disease which is resolved. Blood sugars are better controlled.Issue of compliance with medication was discussed in detail. Diabetic education was provided. Patient will be discharged home and will follow up with PCP. Management plan was discussed in detail with patient. Education was provided.
== END 2018-09-23 14:12 | disposition home or self-care (01) ==
LOC: ED 10:23 → ERH 13:53 → 3RSO 15:09
PROVIDERS: ADMIT Internal Medicine; ATTEND Internal Medicine
DX: E11.65 Type 2 diabetes mellitus with hyperglycemia (principal); I25.10 Atherosclerotic heart disease of native coronary artery without angina pectoris; I10 Essential (primary) hypertension; E03.9 Hypothyroidism, unspecified; J44.9 Chronic obstructive pulmonary disease, unspecified; E11.43 Type 2 diabetes mellitus with diabetic autonomic (poly)neuropathy; K31.84 Gastroparesis; K21.9 Gastro-esophageal reflux disease without esophagitis; I25.2 Old myocardial infarction; Z91.14 Patient's other noncompliance with medication regimen; Z95.5 Presence of coronary angioplasty implant and graft; Z79.4 Long term (current) use of insulin
CPT/HCPCS: 36415; 71045; 80053; 81003; 81025; 82803; 82948; 83036; 83735; 84443; 85025; 87040; 87086; 93005; 96372; 96374; 99285; G0378; J1650; J7030